=== PATIENT | male | born 1945 | race Caucasian/White ===

== ENCOUNTER 2018-05-28 16:43 | Inpatient (IN) | payer MEDICARE, BC ==
[~2018-05-28] VITALS: Ht 180.3 cm; Wt 85.5 kg
[2018-05-28 20:20] VITALS: BP 111/65; PULSE 62; RESP 18
[2018-05-28 20:47] VITALS: Ht 180.3 cm; Wt 85.5 kg
[2018-05-28] MEDS ORDERED: DEXTROSE 50% 50 ML SYRINGE IV PRN ×2 (21:00)
[2018-05-28] MEDS ORDERED: GLUCOSE GEL 15 GRAM TUBE BUCCAL PRN (21:00)
[2018-05-28] MEDS: MAGNESIUM OXIDE 400 MG TAB PO SCH (21:00)
[2018-05-28] MEDS ORDERED: DOCUSATE SODIUM 100 MG CAP PO PRN (21:00)
[2018-05-28] MEDS ORDERED: GLUCOSE GEL 15 GRAM TUBE PO PRN ×2 (21:00)
[2018-05-28] MEDS ORDERED: ONDANSETRON 4 MG TAB PO PRN (21:00)
[2018-05-28] MEDS: ATORVASTATIN 10 MG TAB PO SCH (21:00)
[2018-05-28] MEDS: ACCU-CHEK XX SCH (21:00)
[2018-05-28] MEDS ORDERED: GLUCAGON 1 MG INJ IM PRN (21:00)
[2018-05-28] MEDS: POLYETHYLENE GLYCOL 17 GM PACKET PO SCH (21:00)
[2018-05-28] MEDS ORDERED: METHOCARBAMOL 750 MG TAB PO PRN (21:00)
[2018-05-28] MEDS: TAMSULOSIN (SR) 0.4 MG CAP PO SCH (21:00)
[2018-05-28] MEDS: GUAIFENESIN LA 600 MG TABSR PO SCH (21:00)
[2018-05-28] MEDS: INSULIN ASPART [NOVOLOG] 3 ML PEN SC SCH (22:00)
[2018-05-28] MEDS ORDERED: PENDING SANTYL ORDER FOR WOUND CARE XX PRN (22:00)
[2018-05-28] MEDS ORDERED: BISACODYL 10 MG SUPP PR PRN (22:30)
[2018-05-29 02:34] VITALS: BP 119/69; PULSE 68; RESP 18
[2018-05-29] MEDS: LANSOPRAZOLE 30 MG CAP PO SCH (06:05)
[2018-05-29] MEDS: ACETAMINOPHEN 325 MG TAB PO SCH ×4 (06:05→18:20)
[2018-05-29] MEDS: LEVOTHYROXINE 125 MCG TAB PO SCH (06:05)
[2018-05-29 07:00] VITALS: BP 96/57; PULSE 75; RESP 16
[2018-05-29] MEDS: INSULIN ASPART [NOVOLOG] 3 ML PEN SC SCH ×4 (07:35→21:00)
[2018-05-29] MEDS: metFORMIN 500 MG TAB PO SCH ×2 (08:16→19:32)
[2018-05-29] MEDS: ACCU-CHEK XX SCH ×4 (08:17→21:24)
[2018-05-29] MEDS ORDERED: COLCHICINE 0.6 MG TAB PO SCH (09:00)
[2018-05-29] MEDS: POLYETHYLENE GLYCOL 17 GM PACKET PO SCH ×2 (09:00→20:57)
[2018-05-29] MEDS: DOCUSATE SODIUM 100 MG CAP PO SCH ×2 (09:00→20:57)
[2018-05-29] MEDS: traMADol 50 MG TAB PO PRN (09:50)
[2018-05-29] MEDS: GUAIFENESIN LA 600 MG TABSR PO SCH ×2 (09:53→20:49)
[2018-05-29] MEDS: FOLIC ACID 1 MG TAB PO SCH (09:53)
[2018-05-29] MEDS: LOSARTAN 50 MG TAB PO SCH (09:57)
[2018-05-29 14:00] VITALS: BP 148/73; PULSE 76; RESP 18
--- NOTE | 2018-05-29 15:08 | HP ---
DATE OF ADMISSION: 05/28/2018 HISTORY OF PRESENT ILLNESS: This is a 72-year-old male with a past medical history of diabetes, hypo thyroidism, history of hypertension, history of chronic kidney disease stage III, who presented to [facility] with cervical stenosis and spondylitis. The patient was admitted and on 06/2018 the patient underwent posterior cervical C3-C6 laminectomy with instrumented fusion. The gary small underwent procedure after having prolonged symptoms of weakness and neuropathy of his left hand. The patient postoperatively his course was complicated with pain. The patient also had a postopera tive leukocytosis and fever. The patient was treated with antibiotics, but found no evidence of acti ve infection. The patient's kidney function was noted to be stable during the hospital course. The p atient, however, had a significant decline in his premorbid state. As a result, he was transferred to [facility] acute rehab for continued care. Upon my evaluation of the patient at this time is currently lethargic. The patient has noted difficu lty ambulating. The patient denies any chest pain, nausea, vomiting, no shortness of breath. PAST MEDICAL HISTORY: History of CKD, history of dyslipidemia, hypothyroidism, hypertension, diabete s, BPH. PAST SURGICAL HISTORY: The patient is status post rotator cuff surgery, status post right knee arthr oplasty, right thumb transfer from big toe, a vasectomy. ALLERGIES: PLEASE SEE LIST. FAMILY HISTORY: No family history. SOCIAL HISTORY: Does not drink, smoke or do drugs. MEDICATIONS: The patient's medications have been reviewed. REVIEW OF SYSTEMS: A 14-point review of systems conducted. Pertinent positives stated in HPI, other cervantes negative. PHYSICAL EXAMINATION: VITAL SIGNS: Blood pressure 96/56, respirations 16, pulse 75, temperature 99.0. HEENT: Head is normocephalic. The patient has a neck brace. HEART: Regular rate. LUNGS: Show diminished breath sounds at the base. ABDOMEN: Soft, nontender to palpation without rebound or guarding. EXTREMITIES: Negative for clubbing, cyanosis, no edema. DERMATOLOGIC: No rashes. MUSCULOSKELETAL: No joint effusions. NEUROLOGIC: Limited exam due to lack of patient cooperation. No obvious focal deficits. The patien t does have an abnormal gait. LABORATORY DATA: Shows a sodium 135, potassium 4.4, chloride 98, BUN 25, creatine 1.48. Hemoglobin A1c 6.7. White count 5.7, hemoglobin 13.5, platelet count is 155. Urinalysis was reviewed. ASSESSMENT AND PLAN: This is a 72-year-old male who presents with: 1. Status post posterior cervical C3 to C6 laminectomy with instrumented fusion. The patient has a noted neck brace. Plan is to continue physical therapy, occupational therapy, pain control, monitor closely. Consider neurologic evaluation. 2. Hypertension. The patient is currently hypotensive. Will hold blood pressure medications and mo nitor closely. Consider fluid challenge. 3. Diabetes. Continue current insulin regimen. 4. Benign prostatic hypertrophy. Continue Flomax. 5. Dyslipidemia. Continue statin therapy. 6. Hypothyroidism. Continue Synthroid. 7. Constipation. Continue current bowel regimen. 8. SIRS, The patient has completed an antibiotic course. 9. Gastrointestinal and DVT prophylaxis. Continue sequential leg squeezers and PPI. 10. Dirty urinalysis, pyuria. We will follow up urine culture. 11. Chronic kidney disease, stage III. The patient's baseline creatinine is between 1.5 and 1.75 mg /dL. The patient's renal function is currently at baseline. Continue current treatment plan and jose miguel ally dose all medication. Please note, I spent an additional 30 minutes in byda-wa-vmvw time with the patient's discussing ____ _status. The patient is FULL CODE. Dictated By: TESSA SHRESTHA DO NR/NTS Conf#: [id number] DID#: [id number] CC: VISHNU LANDERS DO; MARIANA IRVING MD;*End*
--- NOTE | 2018-05-29 15:40 | CONS ---
DATE OF ADMISSION: 05/28/2018 DATE OF CONSULTATION: 05/29/2018 REHABILITATION POST ADMISSION PHYSICIAN EVALUATION REHABILITATION IMPAIRMENT CATEGORY: Nontraumatic cervical spinal cord injury with cervical spinal st enosis and spondylitis, status post posterior C3 through C6 laminectomy and fusion. ACTIVE COMORBIDITIES: 1. Acute pain syndrome. 2. Diabetes mellitus type 2. 3. Hypertension. 4. Renal insufficiency. 5. Hypothyroidism. 6. Benign prostatic hypertrophy. 7. History of right knee osteoarthritis with arthroscopy. 8. History of right thumb transfer from big toe. 9. Impairments in self-care and mobility. HISTORY OF PRESENT ILLNESS: The patient is a 72-year-old left-handed gentleman with a history of kimberly betes mellitus, hypothyroidism, hypertension, osteoarthritis, who had been noting severe increasing r adiating pain despite conservative measures. Workup was consistent with cervical spinal stenosis and spondylitis and patient underwent a posterior cervical C3 through C6 laminectomy with instrumented f usion. His postoperative course was notable for a leukocytosis and postop fever, which has improved. The patient was noted to have a left lower lobe pneumonia. The patient's hospital course also was notable for pain, and significant impairments in self-care and mobility as compared to baseline. The patient has been cleared to transfer to the rehabilitation unit for comprehensive interdisciplinary rehab care. FUNCTIONAL HISTORY: Prior to recent events, he was independent in self-care tasks and mobility. Cur rently, patient requires moderate to maximal assist for self-care and mobility tasks. I have reviewed the preadmission screen and the patient's current functional status is consistent wit h the preadmission screen. FAMILY AND SOCIAL HISTORY: The patient reports living at home with family in a 2 story home. He majano s hope to return there upon discharge. PAST MEDICAL HISTORY: 1. Diabetes mellitus type 2. 2. Hypothyroidism. 3. Chronic rotator cuff disorder. 4. Hypertension. 5. Renal insufficiency. 6. Osteoarthritis with right knee arthroscopy. 7. History of right thumb transfer from big toe. 8. History of BPH. CURRENT MEDICATIONS: 1. Losartan 50 mg p.o. q.a.m. 2. Levothyroxine 125 mcg p.o. q.a.m. 3. Atorvastatin 10 mg p.o. q.a.m. 4. Folic acid 0.5 mg p.o. daily. 5. Metformin 1000 mg p.o. b.i.d. 6. Omeprazole 40 mg p.o. daily. 7. Flomax 0.4 mg p.o. daily. 8. Vitamin B12. 9. Methocarbamol. 10. Flexeril. 11. Ultram. ALLERGIES: NONSTEROIDAL ANTI-INFLAMMATORY AND PROTONIX. PHYSICAL EXAMINATION: VITAL SIGNS: The patient is currently afebrile with stable vital signs. HEENT: Extraocular motions appear intact. Oropharynx is clear. Cervical collar in place. LUNGS: Clear anteriorly. CARDIAC: S1, S2. ABDOMEN: Soft, nontender, positive bowel sounds. NEUROLOGIC: He is awake and alert. He is oriented x3. He can follow simple 1-step commands. His d istal child support officer is 4+ in bilateral upper extremities. He has decreased forward flexion and abduction. Bi lateral upper extremities, left worse than right. He has antigravity strength in bilateral lower ext remities. Dorsiflexion, plantar flexion intact. PLAN: The patient has been admitted for comprehensive interdisciplinary acute rehab and is anticipat ed to tolerate 3 hours of daily therapy in divided doses for at least 5/7 days a week. The treatment plan will include: 1. Physical therapy to focus on bed mobility, transfers, and household ambulation with the goal of h aving the patient reach a standby assist level. 2. Occupational therapy to focus on hygiene, grooming, dressing, bathing, and toileting activities w ith goal of having patient reach standby assist level. 3. Rehabilitation nursing for carryover of therapeutic interventions, the goal of continent of bowel and bladder, the goal of pain adequately managed on oral medications and patient and family educatio n with regard to the aforementioned issues. REHABILITATION BARRIER: Pain. INTERVENTION FOR BARRIER: Interdisciplinary approach. We will also start Neurontin given the neurop athic component to his pain. I acknowledge that I performed a full physical examination on this patient within 24 hours of admissi on to the rehabilitation unit. I believe the patient is a good candidate for comprehensive interdisc iplinary rehab care and is anticipated to make reasonable goals in a reasonable period of time as out lined above. Dictated By: MARIANA DESHPANDE/NTS Conf#: [id number] DID#: [id number] CC: VISHNU LANDERS DO;*EndCC*
[2018-05-29 20:15] VITALS: BP 95/57; PULSE 67; RESP 18
[2018-05-29] MEDS: ATORVASTATIN 10 MG TAB PO SCH (20:48)
[2018-05-29] MEDS: TAMSULOSIN (SR) 0.4 MG CAP PO SCH (20:48)
[2018-05-29] MEDS: GABAPENTIN 100 MG CAP PO SCH (20:49)
[2018-05-29] MEDS: MAGNESIUM OXIDE 400 MG TAB PO SCH (20:49)
[2018-05-29] MEDS: SENNA TAB PO SCH (20:58)
[2018-05-30] MEDS: traMADol 50 MG TAB PO PRN ×3 (03:13→20:24)
[2018-05-30 03:41] VITALS: BP 98/55; PULSE 64; RESP 18
[2018-05-30] MEDS: LANSOPRAZOLE 30 MG CAP PO SCH (06:09)
[2018-05-30] MEDS: LEVOTHYROXINE 125 MCG TAB PO SCH (06:09)
[2018-05-30] MEDS: ACETAMINOPHEN 325 MG TAB PO SCH ×4 (06:12→17:55)
[2018-05-30 07:00] VITALS: BP 94/57; PULSE 67; RESP 18
[2018-05-30] MEDS: INSULIN ASPART [NOVOLOG] 3 ML PEN SC SCH ×4 (07:35→21:00)
[2018-05-30] MEDS: ACCU-CHEK XX SCH ×4 (08:03→21:00)
[2018-05-30] MEDS: metFORMIN 500 MG TAB PO SCH ×2 (08:41→17:48)
[2018-05-30] MEDS: DOCUSATE SODIUM 100 MG CAP PO SCH ×2 (08:41→21:00)
[2018-05-30] MEDS: FOLIC ACID 1 MG TAB PO SCH (08:43)
[2018-05-30] MEDS: LOSARTAN 50 MG TAB PO SCH (08:43)
[2018-05-30] MEDS: POLYETHYLENE GLYCOL 17 GM PACKET PO SCH ×3 (08:44→21:00)
[2018-05-30] MEDS: GUAIFENESIN LA 600 MG TABSR PO SCH ×2 (08:44→20:23)
[2018-05-30] MEDS: GABAPENTIN 100 MG CAP PO SCH ×2 (08:44→20:24)
--- NOTE | 2018-05-30 09:31 | PN ---
DATE: 05/30/2018 SUBJECTIVE: The patient had a difficult night. The patient is complaining about neck pain and gener al discomfort. The patient is also complaining about cough. No other events noted. OBJECTIVE: VITAL SIGNS: Blood pressure is 98/55, respiration 18, pulse 64, temperature is 98.9. HEENT: Head is normocephalic. NECK: Shows a brace. HEART: Regular rate. LUNGS: Show diminished breath sounds at the base. ABDOMEN: Soft, nontender to palpation without rebound or guarding. EXTREMITIES: Negative for clubbing, cyanosis, no edema. DERMATOLOGIC: No rashes. MUSCULOSKELETAL: No joint effusion. NEUROLOGIC: No change in exam. MEDICATIONS: The patient's medications have been reviewed. LABORATORY DATA: Shows white count 6.5, hemoglobin 12.5, platelet count 154. Sodium 134, BUN 26, cr eatinine 1.46. Microbiology was reviewed. ASSESSMENT AND PLAN: 1. Status post posterior cervical C3-C6 laminectomy with instrumented fusion. The patient has a nec k brace noted. Continue physical therapy and occupational therapy, pain control. 2. Cough. Etiology may be postoperative. We will continue to monitor. Consider chest x-ray. 3. Hypertension. The patient is currently hypotensive. Will continue to hold blood pressure medica tions, monitor closely. 4. Diabetes. Continue current diabetic regimen. 5. Benign prostatic hypertrophy. Continue Flomax. 6. Dyslipidemia. Continue statin therapy. 7. Hypothyroidism. Continue Synthroid. 8. Constipation. Continue bowel regimen. 9. SIRS, the patient has completed an antibiotic course. 10. Pyuria. Will continue to monitor. Follow up urine culture. 11. Chronic kidney disease, stage III. Patient's renal function is currently at baseline. Continue current treatment plan, supportive care, renally dose all meds. 12. Gastrointestinal and deep vein thrombosis prophylaxis. Dictated By: TESSA SHRESTHA DO NR/NTS Conf#: [id number] DID#: [id number] CC: VISHNU LANDERS DO; MARIANA IRVING MD;*EndCC*
[2018-05-30] MEDS: CYCLOBENZAPRINE 10 MG TAB PO PRN ×2 (13:47→20:24)
[2018-05-30 14:00] VITALS: BP 96/61; PULSE 64; RESP 18
[2018-05-30] MEDS: TAMSULOSIN (SR) 0.4 MG CAP PO SCH (20:23)
[2018-05-30] MEDS: MAGNESIUM OXIDE 400 MG TAB PO SCH (20:23)
[2018-05-30] MEDS: ATORVASTATIN 10 MG TAB PO SCH (20:24)
[2018-05-30 20:42] VITALS: BP 95/60; PULSE 64; RESP 18
[2018-05-30] MEDS: SENNA TAB PO SCH (21:00)
[2018-05-31 02:00] VITALS: BP 108/65; PULSE 62; RESP 18
[2018-05-31] MEDS: LANSOPRAZOLE 30 MG CAP PO SCH (06:14)
[2018-05-31] MEDS: ACETAMINOPHEN 325 MG TAB PO SCH ×4 (06:14→18:00)
[2018-05-31 07:00] VITALS: BP 104/65; PULSE 64; RESP 18
[2018-05-31] MEDS: ACCU-CHEK XX SCH ×4 (07:05→21:51)
[2018-05-31] MEDS: INSULIN ASPART [NOVOLOG] 3 ML PEN SC SCH ×4 (07:35→21:00)
[2018-05-31] MEDS: metFORMIN 500 MG TAB PO SCH ×3 (08:16→18:01)
[2018-05-31] MEDS: POLYETHYLENE GLYCOL 17 GM PACKET PO SCH ×2 (09:00→21:00)
[2018-05-31] MEDS: GABAPENTIN 100 MG CAP PO SCH ×2 (09:29→20:48)
[2018-05-31] MEDS: DOCUSATE SODIUM 100 MG CAP PO SCH ×2 (09:29→21:00)
[2018-05-31] MEDS: GUAIFENESIN LA 600 MG TABSR PO SCH ×2 (09:29→21:27)
[2018-05-31] MEDS: CYCLOBENZAPRINE 10 MG TAB PO PRN ×2 (09:30→13:03)
[2018-05-31] MEDS: LOSARTAN 50 MG TAB PO SCH (09:30)
[2018-05-31] MEDS: FOLIC ACID 1 MG TAB PO SCH (09:30)
[2018-05-31] MEDS: traMADol 50 MG TAB PO PRN (09:30)
--- NOTE | 2018-05-31 09:48 | PN ---
DATE: 05/31/2018 SUBJECTIVE: The patient is stable overnight. No fevers, chills, nausea, vomiting. OBJECTIVE: VITAL SIGNS: Blood pressure is 108/65, respirations 18, pulse 62, temperature 97.9. HEENT: Head is normocephalic. NECK: Shows brace. HEART: Regular rate. LUNGS: Show diminished breath sounds at the base. ABDOMEN: Soft, nontender to palpation without rebound or guarding. EXTREMITIES: Negative for clubbing, cyanosis, no edema. DERMATOLOGIC: No rashes. MUSCULOSKELETAL: No joint effusion. NEUROLOGIC: No change in exam. MEDICATIONS: Reviewed. LABORATORY DATA: Reviewed. ASSESSMENT AND PLAN: 1. Status post posterior cervical C3-C6 laminectomy with instrument fusion. The patient is currentl y in neck brace. Continue physical therapy and occupational therapy. 2. Cough, improving. Continue to monitor. 3. Hypertension. Continue current blood pressure regimen with parameters to avoid hypotensive episo helio. 4. Diabetes. Continue current diabetic regimen. 5. Benign prostatic hypertrophy. Continue Flomax. 6. Dyslipidemia. Continue statin therapy. 7. Hypothyroidism. Continue Synthroid. 8. Constipation. Continue current bowel regimen. 9. Systemic inflammatory response syndrome. The patient is completing antibiotic course. 10. Pyuria. Continue to monitor. Follow up urine culture. 11. Chronic kidney disease stage III. Renal function is stable. Currently at baseline. Continue t o monitor. 12. Mild hypernatremia, possibly due to syndrome of inappropriate antidiuretic hormone. Monitor guillermo sely. 13. Gastrointestinal and deep vein thrombosis prophylaxis. Dictated By: TESSA SHRESTHA DO NR/NTS Conf#: [id number] DID#: [id number] CC: MARIANA IRVING MD; VISHNU LANDERS DO;*EndCC*
[2018-05-31] MEDS: LEVOTHYROXINE 125 MCG TAB PO SCH (12:00)
--- NOTE | 2018-05-31 13:58 | PN ---
Date/Time of Note Date/Time of Note DATE: 05/31/18 TIME: 13:58 Objective Vital Signs Date Temp Pulse Resp B/P (MAP) Pulse Ox O2 O2 Flow FiO2 Time Delivery Rate 05/31/18 98.1 64 18 104/65 92 Room Air 07:00 (78) Intake and Output 05/30/18 05/30/18 05/31/18 1515:00 23:00 07:00 IntakeIntake Total 1200 ml 300 ml OutputOutput Total 600 ml 200 ml BalanceBalance 600 ml 100 ml Exam INTERDISCIPLINARY TEAM CONFERENCE Physical Exam: Pulm- CTA Abd-soft BOWEL- Cont BLADDER-Cont SKIN- intact OT- DRESSING- max/dep BATHING-max/dep TOILETING-dep PT- BED MOBILITY-max TRANSFERS-max AMBULATION-max 2 steps A/P- Interdisciplinary team conference held today. Please see interdisciplinary sheet. Working toward d.c. on 06/17 with post discharge follow up of physical therapy, occupational therapy. Results/Medications Result Diagram: 05/30/1862605/30/18626 Results 24 hrs Laboratory Tests Test 05/30/18 17:48 05/30/18 20:27 05/31/18 07:55 05/31/18 12:00 Bedside Glucose 106 127 99 101 Medications Current Medications Acetaminophen (Tylenol Tab) 650 mg Q6H PO Last administered on 05/31/18at 12:22; Admin Dose 650 MG; Start 05/29/18 at 00:00; Stop 06/01/18 at 23:59 Tramadol HCl (Ultram) 50 mg Q4 PRN PO PAIN Last administered on 05/31/18at 09:3 0; Admin Dose 50 MG; Start 05/28/18 at 21:00 Tamsulosin HCl (Flomax) 0.4 mg HS PO Last administered on 05/30/18at 20:23; Admin Dose 0.4 MG; Start 05/28/18 at 21:00 Polyethylene Glycol (Miralax) 17 gm BID PO ; Start 05/28/18 at 21:00 Insulin Aspart (Novolog Insulin Pen) NOVOLOG *MILD* ALGORITHM WITH MEALS BEDTIME SC ; Start 05/28/18 at 22:00 Docusate Sodium (Colace) 100 mg BID PRN PO CONSTIPATION; Start 05/28/18 at 21:00 Guaifenesin (Mucinex) 600 mg BID PO Last administered on 05/31/18 09:29; Admin Dose 600 MG; Start 05/28/18 at 21:00 Miscellaneous Information 1 ea NOTE XX ; Start 05/28/18 at 21:00 Glucose (Glutose) 15 gm Q15M PRN PO DECREASED GLUCOSE; Start 05/28/18 at 21:00 Glucose (Glutose) 22.5 gm Q15M PRN PO DECREASED GLUCOSE; Start 05/28/18 at 21:00 Dextrose (D50w Syringe) 25 ml Q15M PRN IV DECREASED GLUCOSE; Start 05/28/18 at 21:00 Dextrose (D50w Syringe) 50 ml Q15M PRN IV DECREASED GLUCOSE; Start 05/28/18 at 21:00 Glucagon (Glucagen) 1 mg Q15M PRN IM DECREASED GLUCOSE; Start 05/28/18 at 21:00 Glucose (Glutose) 15 gm Q15M PRN BUCCAL DECREASED GLUCOSE; Start 05/28/18 at 21:00 Albuterol/ Ipratropium (Duoneb) 3 ml Q6H RESP THERAPY PRN HHN SHORTNESS OF BREATH; Start 05/28/18 at 21:00 Ondansetron HCl (Zofran Tab) 4 mg Q4 PRN PO NAUSEA AND/OR VOMITING Last administered on 05/31/18 09:30; Admin Dose 4 MG; Start 05/28/18 at 21:00 Atorvastatin Calcium (Lipitor) 10 mg HS PO Last administered on 05/30/18 20:24; Admin Dose 10 MG; Start 05/28/18 at 21:00 Cyclobenzaprine HCl (Flexeril) 5 mg TID PRN PO MUSCLE SPASMS Last administered on 05/31/18 13:03; Admin Dose 5 MG; Start 05/28/18 at 21:00 Folic Acid (Folic Acid) 1 mg DAILY PO Last administered on 05/31/18 09:30; Admin Dose 1 MG; Start 05/29/18 at 09:00 Levothyroxine Sodium (Synthroid) 125 mcg DAILY@06 PO Last administered on 05/31/18 12:00; Admin Dose 125 MCG; Start 05/29/18 at 06:00 Losartan Potassium (Cozaar) 50 mg DAILY PO Last administered on 05/31/18 09:30; Admin Dose 50 MG; Start 05/29/18 at 09:00 Magnesium Oxide (Mag-Ox 400) 400 mg HS PO Last administered on 05/30/18at 20:23; Admin Dose 400 MG; Start 05/28/18 at 21:00 Metformin HCl (Glucophage) 1,000 mg BID WITH MEALS PO Last administered on 05/31/18 08:16; Admin Dose 1,000 MG; Start 05/29/18 at 07:35 Diagnostic Test (Pha) (Accu-Chek) 1 ea AC MEALS AND BEDTIME XX Last administered on 05/31/18at 12:03; Admin Dose 1 EA; Start 05/28/18 at 21:00 Miscellaneous Information [facility] This patient pena... PRN PRN XX WOUND CARE; Start 05/28/18 at 22:00 Cyanocobalamin (Vitamin B12 Inj) 1,000 mcg Q30D IM ; Start 06/14/18 at 22:30 Lansoprazole (Prevacid) 30 mg DAILY@06 PO Last administered on 05/31/18at 06:14; Admin Dose 30 MG; Start 05/29/18 at 06:00 Docusate Sodium (Colace) 100 mg BID PO Last administered on 05/31/18at 09:29; Admin Dose 100 MG; Start 05/29/18 at 09:00 Senna (Senokot) 1 tab HS PO ; Start 05/29/18 at 21:00 Lactulose (Enulose) 20 gm DAILY PRN PO CONSTIPATION; Start 05/28/18 at 22:30 Bisacodyl (Dulcolax Supp) 10 mg DAILY PRN OK CONSTIPATION; Start 05/28/18 at 22:30 Acetaminophen (Tylenol Tab) 650 mg Q4H PRN PO MILD PAIN 1-3; Start 05/28/18 at 22:30 Gabapentin (Neurontin) 100 mg BID PO Last administered on 05/31/18at 09:29; Admin Dose 100 MG; Start 05/29/18 at 21:00 Acetaminophen/ Hydrocodone Bitart ([place] (10/325)) 1 tab Q4H PRN PO MODERATE PAIN LEVEL 4-6; Start 05/31/18 at 13:30 Baclofen (Lioresal) 10 mg TID PO ; Start 05/31/18 at 21:00 MARIANA IRVING MD May 31, 2018 13:58
[2018-05-31 14:00] VITALS: BP 121/73; PULSE 67; RESP 18
[2018-05-31] MEDS: HYDROCODONE/APAP (10/325) TAB PO PRN (15:53)
[2018-05-31 20:00] VITALS: BP 94/58; PULSE 69; RESP 18
[2018-05-31] MEDS: TAMSULOSIN (SR) 0.4 MG CAP PO SCH (20:47)
[2018-05-31] MEDS: ATORVASTATIN 10 MG TAB PO SCH (20:48)
[2018-05-31] MEDS: MAGNESIUM OXIDE 400 MG TAB PO SCH (20:48)
[2018-05-31] MEDS: BACLOFEN 10 MG TAB PO SCH (20:48)
[2018-05-31] MEDS: SENNA TAB PO SCH (21:00)
[2018-06-01 02:00] VITALS: BP 108/65; PULSE 61; RESP 18
[2018-06-01] MEDS: LANSOPRAZOLE 30 MG CAP PO SCH (06:11)
[2018-06-01] MEDS: LEVOTHYROXINE 125 MCG TAB PO SCH (06:12)
[2018-06-01] MEDS: ACETAMINOPHEN 325 MG TAB PO SCH ×4 (06:12→17:47)
[2018-06-01] MEDS: traMADol 50 MG TAB PO PRN ×2 (06:13→10:36)
[2018-06-01] MEDS: ACCU-CHEK XX SCH ×4 (07:05→21:00)
[2018-06-01 07:30] VITALS: BP 99/59; PULSE 62; RESP 20
[2018-06-01] MEDS: INSULIN ASPART [NOVOLOG] 3 ML PEN SC SCH ×4 (07:35→21:00)
--- NOTE | 2018-06-01 08:44 | PN ---
DATE: 06/01/2018 SUBJECTIVE: The patient is stable, no events overnight. No fevers, chills, nausea, or vomiting. Th e patient has nonproductive cough. OBJECTIVE: VITAL SIGNS: Blood pressure is 108/65, respirations 18, pulse 61, temperature 97.8. HEENT: Head is normocephalic. NECK: Supple. The patient has noted brace. HEART: Regular rate. LUNGS: Show diminished breath sounds at the base. ABDOMEN: Soft, nontender to palpation without rebound or guarding. EXTREMITIES: Negative for clubbing, cyanosis, no edema. DERMATOLOGIC: No rashes. MUSCULOSKELETAL: No joint effusion. NEUROLOGIC: No change in exam. ASSESSMENT AND PLAN: 1. Status post posterior cervical C3-C6 laminectomy with instrumented fusion. The patient is curren tly in neck brace, continue physical therapy and occupational therapy. 2. Cough. We will check a chest x-ray. Continue incentive spirometry. 3. Hypertension. The patient now is noted to be hypotensive. Continue to hold blood pressure medic ations and monitor. 4. Diabetes. Continue current diuretic regimen. 5. Benign prostatic hypertrophy. Continue Flomax. 6. Dyslipidemia. Continue statin therapy. 7. Hypothyroidism. Continue Synthroid. 8. Constipation. Continue current bowel regimen. 9. Systemic inflammatory response syndrome, the patient is completing antibiotic course. 10. Pyuria. Follow up urine culture. 11. Chronic kidney disease, stage III. Renal function is stable. Currently at baseline. Continue to monitor. 12. Mild hypernatremia, possibly due to an syndrome of inappropriate antidiuretic hormone. Continue to monitor. Follow up renal panel. 13. Gastrointestinal and deep vein thrombosis prophylaxis. Dictated By: TESSA SHRESTHA DO NR/NTS Conf#: [id number] DID#: [id number] CC: MARIANA IRVING MD; VISHNU LANDERS DO;*EndCC*
[2018-06-01] MEDS: ALBUTEROL/IPRATROPIUM (NEB) 3 ML AMP HHN PRN (08:54)
[2018-06-01] MEDS: DOCUSATE SODIUM 100 MG CAP PO SCH ×3 (09:00→21:08)
[2018-06-01] MEDS: LOSARTAN 50 MG TAB PO SCH (09:00)
[2018-06-01] MEDS: GUAIFENESIN LA 600 MG TABSR PO SCH ×2 (10:36→21:08)
[2018-06-01] MEDS: FOLIC ACID 1 MG TAB PO SCH (10:37)
[2018-06-01] MEDS: metFORMIN 500 MG TAB PO SCH ×2 (10:37→17:49)
[2018-06-01] MEDS: BACLOFEN 10 MG TAB PO SCH ×3 (10:38→21:08)
[2018-06-01] MEDS: POLYETHYLENE GLYCOL 17 GM PACKET PO SCH ×2 (10:38→10:52)
[2018-06-01] MEDS: GABAPENTIN 100 MG CAP PO SCH ×2 (10:39→21:08)
--- NOTE | 2018-06-01 12:51 | PN ---
Date/Time of Note Date/Time of Note DATE: 06/01/18 TIME: 12:51 Subjective Pain improved on medications Objective Vital Signs Date Temp Pulse Resp B/P (MAP) Pulse Ox O2 O2 Flow FiO2 Time Delivery Rate 06/01/18 4.0 09:22 06/01/18 65 19 93 Nasal 08:55 Cannula 06/01/18 97.6 99/59 (72) 07:30 Intake and Output 05/31/18 05/31/18 06/01/18 1515:00 23:00 07:00 IntakeIntake Total 1200 ml 240 ml OutputOutput Total 800 ml BalanceBalance 400 ml 240 ml Exam pulm-cta abd-soft max Results/Medications Result Diagram: 06/01/18 0735 06/01/18 0735 Results 24 hrs Laboratory Tests Test 05/31/18 17:56 05/31/18 20:45 06/01/18 07:35 06/01/18 09:01 Bedside Glucose 114 115 112 White Blood Count 7.2 Red Blood Count 3.85 L Hemoglobin 12.7 L Hematocrit 37.5 L Mean Corpuscular 97.4 Volume Mean Corpuscular 33.0 Hemoglobin Mean Corpuscular 33.9 Hemoglobin Concent Red Cell 13.2 Distribution Width Platelet Count 192 # Mean Platelet Volume 11.1 H Immature 1.800 H Granulocytes % Neutrophils % 70.2 Lymphocytes % 16.2 Monocytes % 10.0 Eosinophils % 1.1 Basophils % 0.7 Nucleated Red Blood 0.0 Cells % Immature 0.130 H Granulocytes # Neutrophils # 5.1 Lymphocytes # 1.2 Monocytes # 0.7 Eosinophils # 0.1 Basophils # 0.1 Nucleated Red Blood 0.0 Cells # Sodium Level 134 L Potassium Level 4.0 Chloride Level 97 Carbon Dioxide Level 27 Anion Gap 10 Blood Urea Nitrogen 24 H Creatinine 1.17 Est Glomerular Filtrat Rate mL/min Glucose Level 102 Calcium Level 8.4 Phosphorus Level 3.8 Magnesium Level 2.0 Test 06/01/18 12:30 Bedside Glucose 114 Medications Current Medications Acetaminophen (Tylenol Tab) 650 mg Q6H PO Last administered on 06/01/18at 12:34; Admin Dose 650 MG; Start 05/29/18 at 00:00; Stop 06/01/18 at 23:59 Tramadol HCl (Ultram) 50 mg Q4 PRN PO PAIN Last administered on 06/01/18 10:36; Admin Dose 50 MG; Start 05/28/18 at 21:00 Tamsulosin HCl (Flomax) 0.4 mg HS PO Last administered on 05/31/18at 20:47; Admin Dose 0.4 MG; Start 05/28/18 at 21:00 Polyethylene Glycol (Miralax) 17 gm BID PO ; Start 05/28/18 at 21:00 Insulin Aspart (Novolog Insulin Pen) NOVOLOG *MILD* ALGORITHM WITH MEALS BEDTIME SC ; Start 05/28/18 at 22:00 Docusate Sodium (Colace) 100 mg BID PRN PO CONSTIPATION; Start 05/28/18 at 21:00 Guaifenesin (Mucinex) 600 mg BID PO Last administered on 06/01/18 10:36; Admin Dose 600 MG; Start 05/28/18 at 21:00 Miscellaneous Information 1 ea NOTE XX ; Start 05/28/18 at 21:00 Glucose (Glutose) 15 gm Q15M PRN PO DECREASED GLUCOSE; Start 05/28/18 at 21:00 Glucose (Glutose) 22.5 gm Q15M PRN PO DECREASED GLUCOSE; Start 05/28/18 at 21:00 Dextrose (D50w Syringe) 25 ml Q15M PRN IV DECREASED GLUCOSE; Start 05/28/18 at 21:00 Dextrose (D50w Syringe) 50 ml Q15M PRN IV DECREASED GLUCOSE; Start 05/28/18 at 21:00 Glucagon (Glucagen) 1 mg Q15M PRN IM DECREASED GLUCOSE; Start 05/28/18 at 21:00 Glucose (Glutose) 15 gm Q15M PRN BUCCAL DECREASED GLUCOSE; Start 05/28/18 at 21:00 Albuterol/ Ipratropium (Duoneb) 3 ml Q6H RESP THERAPY PRN HHN SHORTNESS OF BREATH Last administered on 06/01/18 08:54; Admin Dose 3 ML; Start 05/28/18 at 21:00 Ondansetron HCl (Zofran Tab) 4 mg Q4 PRN PO NAUSEA AND/OR VOMITING Last administered on 05/31/18 09:30; Admin Dose 4 MG; Start 05/28/18 at 21:00 Atorvastatin Calcium (Lipitor) 10 mg HS PO Last administered on 05/31/18at 20:48; Admin Dose 10 MG; Start 05/28/18 at 21:00 Cyclobenzaprine HCl (Flexeril) 5 mg TID PRN PO MUSCLE SPASMS Last administered on 05/31/18 13:03; Admin Dose 5 MG; Start 05/28/18 at 21:00 Folic Acid (Folic Acid) 1 mg DAILY PO Last administered on 06/01/18 10:37; Admin Dose 1 MG; Start 05/29/18 at 09:00 Levothyroxine Sodium (Synthroid) 125 mcg DAILY@06 PO Last administered on 06/01/18 06:12; Admin Dose 125 MCG; Start 05/29/18 at 06:00 Losartan Potassium (Cozaar) 50 mg DAILY PO Last administered on 05/31/18 09:30; Admin Dose 50 MG; Start 05/29/18 at 09:00 Magnesium Oxide (Mag-Ox 400) 400 mg HS PO Last administered on 05/31/18 20:48; Admin Dose 400 MG; Start 05/28/18 at 21:00 Metformin HCl (Glucophage) 1,000 mg BID WITH MEALS PO Last administered on 06/01/18 10:37; Admin Dose 1,000 MG; Start 05/29/18 at 07:35 Diagnostic Test (Pha) (Accu-Chek) 1 ea AC MEALS AND BEDTIME XX Last admin istered on 06/01/18 11:30; Admin Dose 1 EA; Start 05/28/18 at 21:00 Miscellaneous Information (Pending [facility] Order For Wound Care) This patient pena... PRN PRN XX WOUND CARE; Start 05/28/18 at 22:00 Cyanocobalamin (Vitamin B12 Inj) 1,000 mcg Q30D IM ; Start 06/14/18 at 22:30 Lansoprazole (Prevacid) 30 mg DAILY@06 PO Last administered on 06/01/18 06:11; Admin Dose 30 MG; Start 05/29/18 at 06:00 Docusate Sodium (Colace) 100 mg BID PO Last administered on 05/31/18 09:29; Admin Dose 100 MG; Start 05/29/18 at 09:00 Senna (Senokot) 1 tab HS PO ; Start 05/29/18 at 21:00 Lactulose (Enulose) 20 gm DAILY PRN PO CONSTIPATION; Start 05/28/18 at 22:30 Bisacodyl (Dulcolax Supp) 10 mg DAILY PRN [place] CONSTIPATION; Start 05/28/18 at 22:30 Acetaminophen (Tylenol Tab) 650 mg Q4H PRN PO MILD PAIN 1-3; Start 05/28/18 at 22:30 Gabapentin (Neurontin) 100 mg BID PO Last administered on 06/01/18at 10:39; Admin Dose 100 MG; Start 05/29/18 at 21:00 Acetaminophen/ Hydrocodone Bitart ([place] (10/325)) 1 tab Q4H PRN PO MODERATE PAIN LEVEL 4-6 Last administered on 05/31/18at 15:53; Admin Dose 1 TAB; Start 05/31/18 at 13:30 Baclofen (Lioresal) 10 mg TID PO Last administered on 06/01/18at 10:38; Admin Dose 10 MG; Start 05/31/18 at 21:00 Assessment/Plan Additional Assessment/Plan rehab- 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 Continue rehab as tolerated Acute pain syndrome-meds adjusted Diabetes mellitus type 2. Hypertension. Renal insufficiency. Hypothyroidism. Benign prostatic hypertrophy. History of right knee osteoarthritis with arthroscopy. History of right thumb transfer from big toe. MARIANA IRVING MD Jun 01, 2018 12:51
[2018-06-01 14:00] VITALS: BP 117/56; PULSE 60; RESP 18
[2018-06-01 17:30] VITALS: BP 107/58; PULSE 62; RESP 18
[2018-06-01 20:00] VITALS: BP 111/68; PULSE 59; RESP 18
[2018-06-01] MEDS: MAGNESIUM OXIDE 400 MG TAB PO SCH (21:08)
[2018-06-01] MEDS: ATORVASTATIN 10 MG TAB PO SCH (21:08)
[2018-06-01] MEDS: SENNA TAB PO SCH (21:08)
[2018-06-01] MEDS: TAMSULOSIN (SR) 0.4 MG CAP PO SCH (21:08)
[2018-06-02 02:00] VITALS: BP 113/71; PULSE 63; RESP 18
[2018-06-02] MEDS: LANSOPRAZOLE 30 MG CAP PO SCH (06:14)
[2018-06-02] MEDS: LEVOTHYROXINE 125 MCG TAB PO SCH (06:16)
[2018-06-02] MEDS: ACCU-CHEK XX SCH ×4 (07:05→21:00)
[2018-06-02 07:30] VITALS: BP 137/82; PULSE 63; RESP 20
[2018-06-02] MEDS: INSULIN ASPART [NOVOLOG] 3 ML PEN SC SCH ×4 (07:35→21:00)
--- NOTE | 2018-06-02 08:25 | PN ---
DATE: 06/02/2018 SUBJECTIVE: The patient is stable overnight. No fevers, chills, nausea, or vomiting. OBJECTIVE: VITAL SIGNS: Blood pressure is 113/71, respirations 18, pulse 63, temperature 97.9. HEENT: Head is normocephalic. NECK: Shows a brace. HEART: Regular rate. LUNGS: Show diminished breath sounds at the base. ABDOMEN: Soft, nontender to palpation without rebound or guarding. EXTREMITIES: Negative for clubbing, cyanosis, no edema. DERMATOLOGIC: No rashes. MUSCULOSKELETAL: No joint effusion. NEUROLOGIC: No change in exam. MEDICATIONS: Reviewed. LABORATORY DATA: From 06/01/2018 was reviewed. IMAGING STUDY: The patient's chest x-ray showed a 1.7 meters subtle density over right lower lobe, q uestionable nodule, hypoinflated lungs with scattered atelectasis. ASSESSMENT: 1. Status post posterior cervical C3-C6 laminectomy with instrumented fusion. The patient is curren tly in neck brace, continue physical therapy and occupational therapy. 2. Cough. Chest x-ray shows evidence of atelectasis. There is a questionable nodular density. We will consider getting a CT scan of the chest. Continues with incentive spirometry. 3. Hypertension. The patient is currently normotensive. Continue to hold blood pressure medication s. 4. Diabetes. Continue current diabetic regimen. 5. Benign prostatic hypertrophy. Continue Flomax. 6. Dyslipidemia. Continue statin therapy. 7. Hypothyroidism. Continue Synthroid. 8. Constipation. Continue current bowel regimen. 9. Systemic inflammatory response syndrome. The patient is completing antibiotic course. 10. Chronic kidney disease, stage III. Renal function is stable. Continue current treatment plan. 11. Mild hyponatremia, possibly due to syndrome of inappropriate antidiuretic hormone. Continue to monitor sodium levels been stable, limit free water intake. 12. Gastrointestinal and deep vein thrombosis prophylaxis. Dictated By: TESSA SHRESTHA DO NR/NTS Conf#: [id number] DID#: [id number] CC: MARIANA IRVING MD; VISHNU LANDERS DO;*EndCC*
[2018-06-02] MEDS: HYDROCODONE/APAP (10/325) TAB PO PRN (08:54)
[2018-06-02] MEDS: BACLOFEN 10 MG TAB PO SCH ×3 (08:56→22:31)
[2018-06-02] MEDS: GUAIFENESIN LA 600 MG TABSR PO SCH ×2 (08:56→22:14)
[2018-06-02] MEDS: GABAPENTIN 100 MG CAP PO SCH ×2 (08:56→22:12)
[2018-06-02] MEDS: metFORMIN 500 MG TAB PO SCH ×2 (08:56→18:03)
[2018-06-02] MEDS: DOCUSATE SODIUM 100 MG CAP PO SCH ×2 (08:56→21:00)
[2018-06-02] MEDS: LOSARTAN 50 MG TAB PO SCH (09:05)
[2018-06-02] MEDS: FOLIC ACID 1 MG TAB PO SCH (09:07)
[2018-06-02] MEDS: POLYETHYLENE GLYCOL 17 GM PACKET PO SCH ×2 (09:08→21:00)
--- NOTE | 2018-06-02 13:53 | PN ---
Date/Time of Note Date/Time of Note DATE: 06/02/18 TIME: 13:52 Subjective Improving Objective Vital Signs Date Temp Pulse Resp B/P (MAP) Pulse Ox O2 O2 Flow FiO2 Time Delivery Rate 06/02/18 98.8 63 20 137/82 94 Nasal 07:30 (100) Cannula 06/02/18 2.0 02:00 Intake and Output 06/01/18 06/01/18 06/02/18 1515:00 23:00 07:00 IntakeIntake Total 680 ml 450 ml OutputOutput Total 550 ml 480 ml 1050 ml BalanceBalance -550 ml 200 ml -600 ml Exam mod ambulation 65 feet pulm-cta Results/Medications Result Diagram: 06/01/1835 06/01/1835 Results 24 hrs Laboratory Tests Test 06/01/18 17:43 06/01/18 21:09 06/02/18 07:33 06/02/18 11:53 Bedside Glucose 97 139 105 175 Test 06/02/18 13:42 White Blood Count Pending Red Blood Count Pending Hemoglobin Pending Hematocrit Pending Mean Corpuscular Pending Volume Mean Corpuscular Pending Hemoglobin Mean Corpuscular Pending Hemoglobin Concent Red Cell Pending Distribution Width Platelet Count Pending Mean Platelet Volume Pending Medications Current Medications Tramadol HCl (Ultram) 50 mg Q4 PRN PO PAIN Last administered on 06/01/18at 10:36; Admin Dose 50 MG; Start 05/28/18 at 21:00 Tamsulosin HCl (Flomax) 0.4 mg HS PO Last administered on 06/01/18at 21:08; Admin Dose 0.4 MG; Start 05/28/18 at 21:00 Polyethylene Glycol (Miralax) 17 gm BID PO Last administered on 06/02/18 09:08; Admin Dose 17 GM; Start 05/28/18 at 21:00 Insulin Aspart (Novolog Insulin Pen) NOVOLOG *MILD* ALGORITHM WITH MEALS BED TIME SC Last administered on 06/02/18at 12:11; Admin Dose 1 UNIT; Start 05/28/18 at 22:00 Docusate Sodium (Colace) 100 mg BID PRN PO CONSTIPATION; Start 05/28/18 at 21:00 Guaifenesin (Mucinex) 600 mg BID PO Last administered on 06/02/18at 08:56; Admin Dose 600 MG; Start 05/28/18 at 21:00 Miscellaneous Information 1 ea NOTE XX ; Start 05/28/18 at 21:00 Glucose (Glutose) 15 gm Q15M PRN PO DECREASED GLUCOSE; Start 05/28/18 at 21:00 Glucose (Glutose) 22.5 gm Q15M PRN PO DECREASED GLUCOSE; Start 05/28/18 at 21:00 Dextrose (D50w Syringe) 25 ml Q15M PRN IV DECREASED GLUCOSE; Start 05/28/18 at 21:00 Dextrose (D50w Syringe) 50 ml Q15M PRN IV DECREASED GLUCOSE; Start 05/28/18 at 21:00 Glucagon (Glucagen) 1 mg Q15M PRN IM DECREASED GLUCOSE; Start 05/28/18 at 21:00 Glucose (Glutose) 15 gm Q15M PRN BUCCAL DECREASED GLUCOSE; Start 05/28/18 at 21:00 Albuterol/ Ipratropium (Duoneb) 3 ml Q6H RESP THERAPY PRN HHN SHORTNESS OF BREATH Last administered on 06/01/18at 08:54; Admin Dose 3 ML; Start 05/28/18 at 2 1:00 Ondansetron HCl (Zofran Tab) 4 mg Q4 PRN PO NAUSEA AND/OR VOMITING Last administered on 05/31/18 09:30; Admin Dose 4 MG; Start 05/28/18 at 21:00 Atorvastatin Calcium (Lipitor) 10 mg HS PO Last administered on 06/01/18 21:08; Admin Dose 10 MG; Start 05/28/18 at 21:00 Cyclobenzaprine HCl (Flexeril) 5 mg TID PRN PO MUSCLE SPASMS Last administered on 05/31/18 13:03; Admin Dose 5 MG; Start 05/28/18 at 21:00 Folic Acid (Folic Acid) 1 mg DAILY PO Last administered on 06/02/18 09:07; Admin Dose 1 MG; Start 05/29/18 at 09:00 Levothyroxine Sodium (Synthroid) 125 mcg DAILY@06 PO Last administered on 06/02/18 06:16; Admin Dose 125 MCG; Start 05/29/18 at 06:00 Losartan Potassium (Cozaar) 50 mg DAILY PO Last administered on 06/02/18 09:05; Admin Dose 50 MG; Start 05/29/18 at 09:00 Magnesium Oxide (Mag-Ox 400) 400 mg HS PO Last administered on 06/01/18 21:08; Admin Dose 400 MG; Start 05/28/18 at 21:00 Metformin HCl (Glucophage) 1,000 mg BID WITH MEALS PO Last administered on 06/02/18 08:56; Admin Dose 1,000 MG; Start 05/29/18 at 07:35 Diagnostic Test (Pha) (Accu-Chek) 1 ea AC MEALS AND BEDTIME XX Last administered on 06/02/18 12:11; Admin Dose 1 EA; Start 05/28/18 at 21:00 Miscellaneous Information (Pending [facility] Order For Wound Care) This patient pena... PRN PRN XX WOUND CARE; Start 05/28/18 at 22:00 Cyanocobalamin (Vitamin B12 Inj) 1,000 mcg Q30D IM ; Start 06/14/18 at 22:30 Lansoprazole (Prevacid) 30 mg DAILY@06 PO Last administered on 06/02/18 06:14; Admin Dose 30 MG; Start 05/29/18 at 06:00 Docusate Sodium (Colace) 100 mg BID PO Last administered on 06/02/18 08:56; Admin Dose 100 MG; Start 05/29/18 at 09:00 Senna (Senokot) 1 tab HS PO Last administered on 06/01/18 21:08; Admin Dose 1 TAB; Start 05/29/18 at 21:00 Lactulose (Enulose) 20 gm DAILY PRN PO CONSTIPATION; Start 05/28/18 at 22:30 Bisacodyl (Dulcolax Supp) 10 mg DAILY PRN [place] CONSTIPATION; Start 05/28/18 at 22:30 Acetaminophen (Tylenol Tab) 650 mg Q4H PRN PO MILD PAIN 1-3; Start 05/28/18 at 22:30 Gabapentin (Neurontin) 100 mg BID PO Last administered on 06/02/18 08:56; Admin Dose 100 MG; Start 05/29/18 at 21:00 Acetaminophen/ Hydrocodone Bitart ([place] (10/325)) 1 tab Q4H PRN PO MODERATE PAIN LEVEL 4-6 Last administered on 06/02/18 08:54; Admin Dose 1 TAB; Start 05/31/18 at 13:30 Baclofen (Lioresal) 10 mg TID PO Last administered on 06/02/18at 08:56; Admin Dose 10 MG; Start 05/31/18 at 21:00 Assessment/Plan Additional Assessment/Plan rehab- 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 Continue rehab as tolerated, progressing Acute pain syndrome-under better control Diabetes mellitus type 2. Hypertension. Renal insufficiency. Hypothyroidism. Benign prostatic hypertrophy. History of right knee osteoarthritis with arthroscopy. History of right thumb transfer from big toe. MARIANA IRVING MD Jun 02, 2018 13:53
[2018-06-02 14:00] VITALS: BP 112/66; PULSE 61; RESP 20
[2018-06-02] MEDS: LACTULOSE 30ML CUP PO PRN (18:04)
[2018-06-02 19:29] VITALS: BP 130/63; PULSE 64; RESP 18
--- NOTE | 2018-06-02 19:58 | CONS ---
DATE OF ADMISSION: 05/28/2018 DATE OF CONSULTATION: 06/02/2018 TYPE OF CONSULTATION: Psychological. REFERRING PHYSICIAN: Mariana Townsend MD. CONSULTING PSYCHOLOGIST: De De Leon, PhD. REASON FOR CONSULTATION: This consultation was requested by Dr. Karla Townsend in order to evaluate t he cognitive and emotional functioning of this patient related to his present medical condition. HISTORY OF PRESENT ILLNESS: The patient is a 72-year-old male. The patient does have a past medical history of diabetes. The patient does have hypothyroidism and a history of hypertension. The patie nt also has cervical stenosis and spondylitis. The patient underwent a posterior cervical C3-C6 lami nectomy with instrumented fusion. The patient was then cleared medically and sent to the acute rehab ilitation unit for acute multidisciplinary rehabilitation. The patient is motivated to get better an d does want to return to his previous level of functioning. FAMILY AND SOCIAL HISTORY: The patient lives in a home in [place] with his . The patient majano s want to return there after discharge. MEDICATIONS: The patient is currently not on any psychotropic medications. SUBSTANCE USE: The patient reports that he does not smoke. The patient reports that he does not use alcohol or other drugs. MENTAL STATUS EXAMINATION: APPEARANCE: The patient was seen in his wheelchair. He is of average height and weight. The patien t is left handed. The patient is on oxygen and is wearing a collar. BEHAVIOR: The patient was cooperative during the consultation. The patient did attempt to answer al l questions presented to him by the interviewer. MOOD AND AFFECT: The patient's mood appears to be somewhat depressed. The patient reports "I wish i t was not happening." The patient affect was slightly anxious. PERCEPTION: The patient reports no hallucinations or delusions. The patient was alert to person, pl torey, situation and time. MEMORY AND COGNITION: The patient's memory and cognition appear to be intact. He was able to rememb er recent and remote events. The patient was able to name the hospital. The patient was able to nam e the month and the year. The patient was able to name the president, the governor, and the mayor. The patient was able to do 5 serial-7 subtractions from 100 without error. The patient could not spe ll "world" backwards adequately. The patient did spell "drlow" but overall the patient's cognitions appear to be adequate. INTELLIGENCE: Intelligence appears to fall in the average range. INSIGHT: Fair. JUDGMENT: Fair. THOUGHT CONTENT: The patient is concerned about his medical condition. The patient is very frustrat ed about what is happening to him. The patient is motivated to get better. The patient will try his best to do whatever he can to return to his previous level of functioning. DISCUSSION: The patient can likely benefit from some cognitive/behavioral psychotherapy while he is on the unit. Psychotherapy would focus on his underlying level of depression regarding all his medic al problems. 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 Thank you very much, Dr. Karla Townsend, for referring this individual. Please do not hesitate to emilia colvin if you have additional questions. Dictated By: DE DE LEON PHD RK/NAOMI Conf#: [id number] DID#: [id number] CC: MARIANA TOWNSEND MD; VISHNU LANDERS DO;*EndCC*
[2018-06-02] MEDS: SENNA TAB PO SCH (21:00)
[2018-06-02] MEDS: ATORVASTATIN 10 MG TAB PO SCH (22:12)
[2018-06-02] MEDS: MAGNESIUM OXIDE 400 MG TAB PO SCH (22:12)
[2018-06-02] MEDS: traMADol 50 MG TAB PO PRN (22:13)
[2018-06-02] MEDS: TAMSULOSIN (SR) 0.4 MG CAP PO SCH (22:13)
[2018-06-03] MEDS: ACETAMINOPHEN 325 MG TAB PO PRN (00:10)
[2018-06-03] MEDS: SALINE 0.65% 45 ML NAS SPRAY NASAL PRN ×2 (00:11→18:40)
[2018-06-03 02:00] VITALS: BP 118/68; PULSE 67; RESP 18
[2018-06-03 07:00] VITALS: BP 114/74; PULSE 59; RESP 18
[2018-06-03] MEDS: LANSOPRAZOLE 30 MG CAP PO SCH (07:10)
[2018-06-03] MEDS: LEVOTHYROXINE 125 MCG TAB PO SCH (07:10)
[2018-06-03] MEDS: INSULIN ASPART [NOVOLOG] 3 ML PEN SC SCH ×4 (07:35→20:27)
[2018-06-03] MEDS: ACCU-CHEK XX SCH ×4 (08:00→20:27)
[2018-06-03] MEDS: metFORMIN 500 MG TAB PO SCH ×2 (08:20→17:39)
--- NOTE | 2018-06-03 08:53 | PN ---
DATE: 06/03/2018 SUBJECTIVE: The patient is stable. No events overnight. OBJECTIVE: VITAL SIGNS: Blood pressure is 118/68, respirations 18, pulse 67, temperature 98.0. HEENT: Head is normocephalic. NECK: Supple. HEART: Regular rate. LUNGS: Show diminished breath sounds at the base. ABDOMEN: Soft, nontender to palpation without rebound or guarding. EXTREMITIES: Negative for clubbing, cyanosis, no edema. DERMATOLOGIC: No rashes. MUSCULOSKELETAL: No joint effusion. NEUROLOGIC: No change in exam. MEDICATIONS: Reviewed. LABORATORY DATA: Reviewed. ASSESSMENT AND PLAN: 1. Status post posterior cervical C3-C6 laminectomy with instrumented fusion. The patient is curren tly in neck brace, continue physical therapy and occupational therapy. 2. Cough. Etiology is likely due to atelectasis. Continue incentive spirometry. 3. Hypertension. The patient is currently normotensive. Continue to monitor. 4. Diabetes. Continue current diabetic regimen. 5. Benign prostatic hypertrophy. Continue Flomax. 6. Dyslipidemia. Continue statin therapy. 7. Hypothyroidism. Continue Synthroid. 8. Constipation. Continue current bowel regimen. 9. Systemic inflammatory response syndrome. The patient is completing antibiotic course. 10. Nonoliguric acute on top of chronic kidney disease. Etiology is secondary to hemodynamics. Luis al is improving. Continue current treatment plan, supportive care and renally dose all medicines. 11. Mild hypernatremia. Continue to monitor sodium levels and limit free water intake. 12. Gastrointestinal and deep vein thrombosis prophylaxis. Dictated By: TESSA SHRESTHA DO NR/NTS Conf#: [id number] DID#: [id number] CC: MARIANA IRVING MD; VISHNU LANDERS DO;*EndCC*
[2018-06-03] MEDS: POLYETHYLENE GLYCOL 17 GM PACKET PO SCH ×2 (09:00→20:24)
[2018-06-03] MEDS: LOSARTAN 50 MG TAB PO SCH (09:00)
[2018-06-03] MEDS: DOCUSATE SODIUM 100 MG CAP PO SCH ×2 (09:00→20:20)
[2018-06-03] MEDS: GUAIFENESIN LA 600 MG TABSR PO SCH ×2 (09:51→20:20)
[2018-06-03] MEDS: GABAPENTIN 100 MG CAP PO SCH ×2 (09:51→20:20)
[2018-06-03] MEDS: BACLOFEN 10 MG TAB PO SCH ×3 (09:51→20:20)
[2018-06-03] MEDS: FOLIC ACID 1 MG TAB PO SCH (09:51)
--- NOTE | 2018-06-03 11:19 | PN ---
Date/Time of Note Date/Time of Note DATE: 06/03/18 TIME: 11:19 Subjective No new complaints Objective Vital Signs Date Temp Pulse Resp B/P (MAP) Pulse Ox O2 O2 Flow FiO2 Time Delivery Rate 06/03/18 97.5 59 18 114/74 90 Room Air 07:00 (87) 06/02/18 2.0 02:00 Intake and Output 06/02/18 06/02/18 06/03/18 1515:00 23:00 07:00 IntakeIntake Total 1080 ml 550 ml OutputOutput Total 600 ml BalanceBalance 480 ml 550 ml Exam pulm-cta min assist ambulation 65 feet Results/Medications Result Diagram: 06/02/18 1342 06/01/18 0735 Results 24 hrs Laboratory Tests Test 06/02/18 11:53 06/02/18 13:42 06/02/18 18:01 06/02/18 22:09 Bedside Glucose 175 88 132 White Blood Count 8.7 # Red Blood Count 4.12 L Hemoglobin 13.5 L Hematocrit 40.7 L Mean Corpuscular 98.8 Volume Mean Corpuscular 32.8 Hemoglobin Mean Corpuscular 33.2 Hemoglobin Concent Red Cell 13.3 Distribution Width Platelet Count 234 # Mean Platelet Volume 9.5 Immature 4.700 H Granulocytes % Neutrophils % 67.6 Lymphocytes % 17.1 Monocytes % 8.3 Eosinophils % 1.3 Basophils % 1.0 Nucleated Red Blood 0.0 Cells % Immature 0.410 H Granulocytes # Neutrophils # 5.9 Lymphocytes # 1.5 Monocytes # 0.7 Eosinophils # 0.1 Basophils # 0.1 Nucleated Red Blood 0.0 Cells # Test 06/03/18 07:35 Bedside Glucose 118 Medications Current Medications Tramadol HCl (Ultram) 50 mg Q4 PRN PO PAIN Last administered on 06/02/18at 22:13; Admin Dose 50 MG; Start 05/28/18 at 21:00 Tamsulosin HCl (Flomax) 0.4 mg HS PO Last administered on 06/02/18at 22:13; Admin Dose 0.4 MG; Start 05/28/18 at 21:00 Polyethylene Glycol (Miralax) 17 gm BID PO Last administered on 06/02/18at 09:08; Admin Dose 17 GM; Start 05/28/18 at 21:00 Insulin Aspart (Novolog Insulin Pen) NOVOLOG *MILD* ALGORITHM WITH MEALS BEDTIME SC Last administered on 06/02/18 12:11; Admin Dose 1 UNIT; Start 05/28/18 at 22:00 Docusate Sodium (Colace) 100 mg BID PRN PO CONSTIPATION; Start 05/28/18 at 21:00 Guaifenesin (Mucinex) 600 mg BID PO Last administered on 06/03/18 09:51; Admin Dose 600 MG; Start 05/28/18 at 21:00 Miscellaneous Information 1 ea NOTE XX ; Start 05/28/18 at 21:00 Glucose (Glutose) 15 gm Q15M PRN PO DECREASED GLUCOSE; Start 05/28/18 at 21:00 Glucose (Glutose) 22.5 gm Q15M PRN PO DECREASED GLUCOSE; Start 05/28/18 at 21:00 Dextrose (D50w Syringe) 25 ml Q15M PRN IV DECREASED GLUCOSE; Start 05/28/18 at 21:00 Dextrose (D50w Syringe) 50 ml Q15M PRN IV DECREASED GLUCOSE; Start 05/28/18 at 21:00 Glucagon (Glucagen) 1 mg Q15M PRN IM DECREASED GLUCOSE; Start 05/28/18 at 21:00 Glucose (Glutose) 15 gm Q15M PRN BUCCAL DECREASED GLUCOSE; Start 05/28/18 at 21:00 Albuterol/ Ipratropium (Duoneb) 3 ml Q6H RESP THERAPY PRN HHN SHORTNESS OF BREATH Last administered on 06/01/18 08:54; Admin Dose 3 ML; Start 05/28/18 at 21:00 Ondansetron HCl (Zofran Tab) 4 mg Q4 PRN PO NAUSEA AND/OR VOMITING Last administered on 05/31/18 09:30; Admin Dose 4 MG; Start 05/28/18 at 21:00 Atorvastatin Calcium (Lipitor) 10 mg HS PO Last administered on 06/02/18 22:12; Admin Dose 10 MG; Start 05/28/18 at 21:00 Cyclobenzaprine HCl (Flexeril) 5 mg TID PRN PO MUSCLE SPASMS Last administered on 05/31/18 13:03; Admin Dose 5 MG; Start 05/28/18 at 21:00 Folic Acid (Folic Acid) 1 mg DAILY PO Last administered on 06/03/18 09:51; Admin Dose 1 MG; Start 05/29/18 at 09:00 Levothyroxine Sodium (Synthroid) 125 mcg DAILY@06 PO Last administered on 06/03/18 07:10; Admin Dose 125 MCG; Start 05/29/18 at 06:00 Losartan Potassium (Cozaar) 50 mg DAILY PO Last administered on 06/02/18 09:05; Admin Dose 50 MG; Start 05/29/18 at 09:00 Magnesium Oxide (Mag-Ox 400) 400 mg HS PO Last administered on 06/02/18 22:12; Admin Dose 400 MG; Start 05/28/18 at 21:00 Metformin HCl (Glucophage) 1,000 mg BID WITH MEALS PO Last administered on 06/03/18 08:20; Admin Dose 1,000 MG; Start 05/29/18 at 07:35 Diagnostic Test (Pha) (Accu-Chek) 1 ea AC MEALS AND BEDTIME XX Last administered on 06/03/18 08:00; Admin Dose 1 EA; Start 05/28/18 at 21:00 Miscellaneous Information (Pending [facility] Order For Wound Care) This patient pena... PRN PRN XX WOUND CARE; Start 05/28/18 at 22:00 Cyanocobalamin (Vitamin B12 Inj) 1,000 mcg Q30D IM ; Start 06/14/18 at 22:30 Lansoprazole (Prevacid) 30 mg DAILY@06 PO Last administered on 06/03/18 07:10; Admin Dose 30 MG; Start 05/29/18 at 06:00 Docusate Sodium (Colace) 100 mg BID PO Last administered on 06/02/18 08:56; Admin Dose 100 MG; Start 05/29/18 at 09:00 Senna (Senokot) 1 tab HS PO Last administered on 06/01/18 21:08; Admin Dose 1 TAB; Start 05/29/18 at 21:00 Lactulose (Enulose) 20 gm DAILY PRN PO CONSTIPATION Last administered on 06/02/18 18:04; Admin Dose 20 GM; Start 05/28/18 at 22:30 Bisacodyl (Dulcolax Supp) 10 mg DAILY PRN [place] CONSTIPATION; Start 05/28/18 at 22:30 Acetaminophen (Tylenol Tab) 650 mg Q4H PRN PO MILD PAIN 1-3 Last administered on 06/03/18 00:10; Admin Dose 650 MG; Start 05/28/18 at 22:30 Gabapentin (Neurontin) 100 mg BID PO Last administered on 06/03/18 09:51; Admin Dose 100 MG; Start 05/29/18 at 21:00 Acetaminophen/ Hydrocodone Bitart ([place] (10/325)) 1 tab Q4H PRN PO MODERATE PAIN LEVEL 4-6 Last administered on 06/02/18 08:54; Admin Dose 1 TAB; Start 05/31/18 at 13:30 Baclofen (Lioresal) 10 mg TID PO Last administered on 06/03/18 09:51; Admin Dose 10 MG; Start 05/31/18 at 21:00 Sodium Chloride (Deep Sea) 2 spray QID PRN NASAL STUFFYNESS Last administered on 06/03/18 00:11; Admin Dose 2 SPRAY; Start 06/02/18 at 23:00 Assessment/Plan Additional Assessment/Plan rehab- Nontraumatic cervical spinal cord injury with cervical spinal stenosis and spondylitis, status post posterior C3 through C6 laminectomy and fusion. Good progress, continue program Acute pain syndrome-under better control Diabetes mellitus type 2. Hypertension. Renal insufficiency. Hypothyroidism. Benign prostatic hypertrophy. History of right knee osteoarthritis with arthroscopy. History of right thumb transfer from big toe. MARIANA IRVING MD Jun 03, 2018 11:19
[2018-06-03 14:00] VITALS: BP 118/70; PULSE 70; RESP 18
[2018-06-03 19:41] VITALS: BP 101/62; PULSE 78; RESP 19
[2018-06-03] MEDS: ATORVASTATIN 10 MG TAB PO SCH (20:20)
[2018-06-03] MEDS: MAGNESIUM OXIDE 400 MG TAB PO SCH (20:20)
[2018-06-03] MEDS: TAMSULOSIN (SR) 0.4 MG CAP PO SCH (20:20)
[2018-06-03] MEDS: SENNA TAB PO SCH (20:25)
[2018-06-04 02:56] VITALS: BP 106/67; PULSE 70; RESP 19
[2018-06-04] MEDS: LANSOPRAZOLE 30 MG CAP PO SCH (06:45)
[2018-06-04] MEDS: LEVOTHYROXINE 125 MCG TAB PO SCH (06:45)
[2018-06-04] MEDS: ACCU-CHEK XX SCH ×4 (07:05→20:49)
[2018-06-04 07:30] VITALS: BP 111/75; PULSE 66; RESP 20
[2018-06-04] MEDS: INSULIN ASPART [NOVOLOG] 3 ML PEN SC SCH ×4 (07:35→20:49)
--- NOTE | 2018-06-04 07:56 | PN ---
Date/Time of Note Date/Time of Note DATE: 06/04/18 TIME: 07:54 Subjective AWKE ALERT, MILD PAIN, PO GOOD Objective Vital Signs Date Temp Pulse Resp B/P (MAP) Pulse Ox O2 O2 Flow FiO2 Time Delivery Rate 06/04/18 97.8 70 19 106/67 93 Room Air 02:56 (80) 06/02/18 2.0 02:00 Intake and Output 06/03/18 06/03/18 06/04/18 1515:00 23:00 07:00 IntakeIntake Total 240 ml 1200 ml OutputOutput Total 200 ml 700 ml BalanceBalance 40 ml 500 ml Exam LUNGS CTA COR RRR UE MOTOR 4+/5 B CLOF GAIT AND XT MIN A FWW Results/Medications Result Diagram: 06/02/18 1342 06/01/18 0735 Results 24 hrs Laboratory Tests Test 06/03/18 12:15 06/03/18 17:37 06/03/18 20:26 Bedside Glucose 144 109 131 Medications Current Medications Tramadol HCl (Ultram) 50 mg Q4 PRN PO PAIN Last administered on 06/02/18at 22:13; Admin Dose 50 MG; Start 05/28/18 at 21:00 Tamsulosin HCl (Flomax) 0.4 mg HS PO Last administered on 06/03/18at 20:20; Admin Dose 0.4 MG; Start 05/28/18 at 21:00 Polyethylene Glycol (Miralax) 17 gm BID PO Last administered on 06/02/18at 09:0 8; Admin Dose 17 GM; Start 05/28/18 at 21:00 Insulin Aspart (Novolog Insulin Pen) NOVOLOG *MILD* ALGORITHM WITH MEALS BEDTIME SC Last administered on 06/03/18at 12:20; Admin Dose 1 UNIT; Start 05/28/18 at 22:00 Docusate Sodium (Colace) 100 mg BID PRN PO CONSTIPATION; Start 05/28/18 at 21:00 Guaifenesin (Mucinex) 600 mg BID PO Last administered on 06/03/18at 20:20; Admin Dose 600 MG; Start 05/28/18 at 21:00 Miscellaneous Information 1 ea NOTE XX ; Start 05/28/18 at 21:00 Glucose (Glutose) 15 gm Q15M PRN PO DECREASED GLUCOSE; Start 05/28/18 at 21:00 Glucose (Glutose) 22.5 gm Q15M PRN PO DECREASED GLUCOSE; Start 05/28/18 at 21:00 Dextrose (D50w Syringe) 25 ml Q15M PRN IV DECREASED GLUCOSE; Start 05/28/18 at 21:00 Dextrose (D50w Syringe) 50 ml Q15M PRN IV DECREASED GLUCOSE; Start 05/28/18 at 21:00 Glucagon (Glucagen) 1 mg Q15M PRN IM DECREASED GLUCOSE; Start 05/28/18 at 21:00 Glucose (Glutose) 15 gm Q15M PRN BUCCAL DECREASED GLUCOSE; Start 05/28/18 at 21:00 Albuterol/ Ipratropium (Duoneb) 3 ml Q6H RESP THERAPY PRN HHN SHORTNESS OF BREATH Last administered on 06/01/18 08:54; Admin Dose 3 ML; Start 05/28/18 at 21:00 Ondansetron HCl (Zofran Tab) 4 mg Q4 PRN PO NAUSEA AND/OR VOMITING Last a dministered on 05/31/18 09:30; Admin Dose 4 MG; Start 05/28/18 at 21:00 Atorvastatin Calcium (Lipitor) 10 mg HS PO Last administered on 06/03/18 20:20; Admin Dose 10 MG; Start 05/28/18 at 21:00 Cyclobenzaprine HCl (Flexeril) 5 mg TID PRN PO MUSCLE SPASMS Last administered on 05/31/18 13:03; Admin Dose 5 MG; Start 05/28/18 at 21:00 Folic Acid (Folic Acid) 1 mg DAILY PO Last administered on 06/03/18 09:51; Admin Dose 1 MG; Start 05/29/18 at 09:00 Levothyroxine Sodium (Synthroid) 125 mcg DAILY@06 PO Last administered on 06/04/18 06:45; Admin Dose 125 MCG; Start 05/29/18 at 06:00 Losartan Potassium (Cozaar) 50 mg DAILY PO Last administered on 06/02/18 09:05; Admin Dose 50 MG; Start 05/29/18 at 09:00 Magnesium Oxide (Mag-Ox 400) 400 mg HS PO Last administered on 06/03/18 20:20; Admin Dose 400 MG; Start 05/28/18 at 21:00 Metformin HCl (Glucophage) 1,000 mg BID WITH MEALS PO Last administered on 06/03/18 17:39; Admin Dose 1,000 MG; Start 05/29/18 at 07:35 Diagnostic Test (Pha) (Accu-Chek) 1 ea AC MEALS AND BEDTIME XX Last administered on 06/03/18 20:27; Admin Dose 1 EA; Start 05/28/18 at 21:00 Miscellaneous Information (Pending [facility] Order For Wound Care) This patient pena... PRN PRN XX WOUND CARE; Start 05/28/18 at 22:00 Cyanocobalamin (Vitamin B12 Inj) 1,000 mcg Q30D IM ; Start 06/14/18 at 22:30 Lansoprazole (Prevacid) 30 mg DAILY@06 PO Last administered on 06/04/18 06:45; Admin Dose 30 MG; Start 05/29/18 at 06:00 Docusate Sodium (Colace) 100 mg BID PO Last administered on 06/03/18 20:20; Admin Dose 100 MG; Start 05/29/18 at 09:00 Senna (Senokot) 1 tab HS PO Last administered on 06/01/18 21:08; Admin Dose 1 TAB; Start 05/29/18 at 21:00 Lactulose (Enulose) 20 gm DAILY PRN PO CONSTIPATION Last administered on 06/02/18 18:04; Admin Dose 20 GM; Start 05/28/18 at 22:30 Bisacodyl (Dulcolax Supp) 10 mg DAILY PRN [place] CONSTIPATION; Start 05/28/18 at 22:30 Acetaminophen (Tylenol Tab) 650 mg Q4H PRN PO MILD PAIN 1-3 Last administered on 06/03/18 00:10; Admin Dose 650 MG; Start 05/28/18 at 22:30 Gabapentin (Neurontin) 100 mg BID PO Last administered on 06/03/18 20:20; Admin Dose 100 MG; Start 05/29/18 at 21:00 Acetaminophen/ Hydrocodone Bitart ([place] (10/325)) 1 tab Q4H PRN PO MODERATE PAIN LEVEL 4-6 Last administered on 06/02/18 08:54; Admin Dose 1 TAB; Start 05/31/18 at 13:30 Baclofen (Lioresal) 10 mg TID PO Last administered on 3/14/19at 20:20; Admin Dose 10 MG; Start 05/31/18 at 21:00 Sodium Chloride (Deep Sea) 2 spray QID PRN NASAL STUFFYNESS Last administered on 06/03/18at 18:40; Admin Dose 2 SPRAY; Start 06/02/18 at 23:00 Assessment/Plan Additional Assessment/Plan rehab- Nontraumatic cervical spinal cord injury with cervical spinal stenosis and spondylitis, status post posterior C3 through C6 laminectomy and fusion. Good progress, continue program. CONT ASP COLLAR Acute pain syndrome-under better control Diabetes mellitus type 2. Hypertension.MAINTAIN SBP <150 Renal insufficiency. Hypothyroidism. Benign prostatic hypertrophy.NO EVIDENCE OF RETENTION History of right knee osteoarthritis with arthroscopy. History of right thumb transfer from big toe. WASHINGTON IRVING MD Jun 04, 2018 07:55
[2018-06-04] MEDS: metFORMIN 500 MG TAB PO SCH ×2 (08:40→17:50)
[2018-06-04] MEDS: FOLIC ACID 1 MG TAB PO SCH (08:41)
[2018-06-04] MEDS: BACLOFEN 10 MG TAB PO SCH ×3 (08:41→20:37)
[2018-06-04] MEDS: GUAIFENESIN LA 600 MG TABSR PO SCH ×2 (08:41→20:37)
[2018-06-04] MEDS: DOCUSATE SODIUM 100 MG CAP PO SCH ×2 (08:41→20:37)
[2018-06-04] MEDS: GABAPENTIN 100 MG CAP PO SCH ×2 (08:42→20:37)
[2018-06-04] MEDS: LOSARTAN 50 MG TAB PO SCH (08:42)
[2018-06-04] MEDS: POLYETHYLENE GLYCOL 17 GM PACKET PO SCH ×2 (08:42→20:37)
--- NOTE | 2018-06-04 09:32 | PN ---
DATE: 06/04/2018 SUBJECTIVE: The patient is stable. No events overnight. OBJECTIVE: VITAL SIGNS: Blood pressure is 119/70, pulse 78, respirations 19, temperature 99.8. HEENT: Head is normocephalic. NECK: The patient has neck brace. HEART: Regular rate. LUNGS: Show diminished breath sounds at the base. ABDOMEN: Soft, nontender to palpation without rebound or guarding. EXTREMITIES: Negative for clubbing, cyanosis, no edema. DERMATOLOGIC: No rashes. MUSCULOSKELETAL: No joint effusion. NEUROLOGIC: No change in exam. MEDICATIONS: Reviewed. LABORATORY DATA: Reviewed. ASSESSMENT AND PLAN: 1. Status post posterior cervical C3-C6 laminectomy with instrumented fusion. The patient is curren tly in neck brace, continue physical therapy and occupational therapy. Cough, improving, likely seco ndary to atelectasis. Continue incentive spirometry. 2. Hypertension. Continue current blood pressure regimen. 3. Diabetes. Continue current diabetic regimen. 4. Benign prostatic hypertrophy. Continue Flomax. 5. Dyslipidemia. Continue statin therapy. 6. Hypothyroidism. Continue Synthroid. 7. Constipation. Continue current bowel regimen. 8. Nonoliguric acute kidney injury on top of chronic kidney disease. Etiology is secondary to hemod ynamics. Renal function is improved. Continue to monitor. 9. Mild hyponatremia. Continue to monitor serum sodium levels and limit free water intake. 10. Gastrointestinal and deep vein thrombosis prophylaxis. Dictated By: TESSA SHRESTHA DO NR/NTS Conf#: [id number] DID#: [id number] CC: VISHNU LANDERS DO; MARIANA IRVING MD;*End*
[2018-06-04] MEDS: ACETAMINOPHEN 325 MG TAB PO PRN (13:48)
[2018-06-04 14:00] VITALS: BP 94/52; PULSE 82; RESP 20
[2018-06-04 20:35] VITALS: BP 112/71; PULSE 71; RESP 18
[2018-06-04] MEDS: SENNA TAB PO SCH (20:37)
[2018-06-04] MEDS: MAGNESIUM OXIDE 400 MG TAB PO SCH (20:37)
[2018-06-04] MEDS: ATORVASTATIN 10 MG TAB PO SCH (20:37)
[2018-06-04] MEDS: TAMSULOSIN (SR) 0.4 MG CAP PO SCH (20:37)
[2018-06-05 02:00] VITALS: BP 117/68; PULSE 77; RESP 18
[2018-06-05] MEDS: LEVOTHYROXINE 125 MCG TAB PO SCH (06:12)
[2018-06-05] MEDS: LANSOPRAZOLE 30 MG CAP PO SCH (06:12)
--- NOTE | 2018-06-05 06:57 | PN ---
Date/Time of Note Date/Time of Note DATE: 06/05/18 TIME: 06:56 Subjective AWAKE ALERT, SOME PERISCAPULAR PAIN Objective Vital Signs Date Temp Pulse Resp B/P (MAP) Pulse Ox O2 O2 Flow FiO2 Time Delivery Rate 06/05/18 98.2 77 18 117/68 96 Nasal 02:00 (84) Cannula 06/02/18 2.0 02:00 Intake and Output 06/04/18 06/04/18 06/05/18 1515:00 23:00 07:00 IntakeIntake Total 1100 ml OutputOutput Total 200 ml BalanceBalance 900 ml Exam LUNGS CTA COR RRR MOTOR FAIR CLOF XT AND GAIT LISA FWW Results/Medications Result Diagram: 06/02/18 1342 06/01/18 0735 Results 24 hrs Laboratory Tests Test 06/04/18 08:31 06/04/18 12:04 06/04/18 17:39 06/04/18 17:48 Bedside Glucose 110 111 116 115 Test 06/04/18 20:43 Bedside Glucose 139 Medications Current Medications Tramadol HCl (Ultram) 50 mg Q4 PRN PO PAIN Last administered on 06/02/18at 22:13; Admin Dose 50 MG; Start 05/28/18 at 21:00 Tamsulosin HCl (Flomax) 0.4 mg HS PO Last administered on 06/04/18at 20:37; Admin Dose 0.4 MG; Start 05/28/18 at 21:00 Polyethylene Glycol (Miralax) 17 gm BID PO Last administered on 06/02/18at 09:08; Admin Dose 17 GM; Start 05/28/18 at 21:00 Insulin Aspart (Novolog Insulin Pen) NOVOLOG *MILD* ALGORITHM WITH MEALS BEDTIME SC Last administered on 06/03/18at 12:20; Admin Dose 1 UNIT; Start 05/28/18 at 22:00 Docusate Sodium (Colace) 100 mg BID PRN PO CONSTIPATION; Start 05/28/18 at 21:00 Guaifenesin (Mucinex) 600 mg BID PO Last administered on 06/04/18at 20:37; Admin Dose 600 MG; Start 05/28/18 at 21:00 Miscellaneous Information 1 ea NOTE XX ; Start 05/28/18 at 21:00 Glucose (Glutose) 15 gm Q15M PRN PO DECREASED GLUCOSE; Start 05/28/18 at 21:00 Glucose (Glutose) 22.5 gm Q15M PRN PO DECREASED GLUCOSE; Start 05/28/18 at 21:00 Dextrose (D50w Syringe) 25 ml Q15M PRN IV DECREASED GLUCOSE; Start 05/28/18 at 21:00 Dextrose (D50w Syringe) 50 ml Q15M PRN IV DECREASED GLUCOSE; Start 05/28/18 at 21:00 Glucagon (Glucagen) 1 mg Q15M PRN IM DECREASED GLUCOSE; Start 05/28/18 at 21:00 Glucose (Glutose) 15 gm Q15M PRN BUCCAL DECREASED GLUCOSE; Start 05/28/18 at 21:00 Albuterol/ Ipratropium (Duoneb) 3 ml Q6H RESP THERAPY PRN HHN SHORTNESS OF BREATH Last administered on 06/01/18 08:54; Admin Dose 3 ML; Start 05/28/18 at 21:00 Ondansetron HCl (Zofran Tab) 4 mg Q4 PRN PO NAUSEA AND/OR VOMITING Last administered on 05/31/18 09:30; Admin Dose 4 MG; Start 05/28/18 at 21:00 Atorvastatin Calcium (Lipitor) 10 mg HS PO Last administered on 06/04/18 20:37; Admin Dose 10 MG; Start 05/28/18 at 21:00 Cyclobenzaprine HCl (Flexeril) 5 mg TID PRN PO MUSCLE SPASMS Last administered on 05/31/18 13:03; Admin Dose 5 MG; Start 05/28/18 at 21:00 Folic Acid (Folic Acid) 1 mg DAILY PO Last administered on 06/04/18 08:41; Admin Dose 1 MG; Start 05/29/18 at 09:00 Levothyroxine Sodium (Synthroid) 125 mcg DAILY@06 PO Last administered on 06/05/18 06:12; Admin Dose 125 MCG; Start 05/29/18 at 06:00 Losartan Potassium (Cozaar) 50 mg DAILY PO Last administered on 06/04/18 08:42; Admin Dose 50 MG; Start 05/29/18 at 09:00 Magnesium Oxide (Mag-Ox 400) 400 mg HS PO Last administered on 06/04/18 20:37; Admin Dose 400 MG; Start 05/28/18 at 21:00 Metformin HCl (Glucophage) 1,000 mg BID WITH MEALS PO Last administered on 06/04/18 17:50; Admin Dose 1,000 MG; Start 05/29/18 at 07:35 Diagnostic Test (Pha) (Accu-Chek) 1 ea AC MEALS AND BEDTIME XX Last administered on 06/04/18 20:49; Admin Dose 1 EA; Start 05/28/18 at 21:00 Miscellaneous Information ([facility]) This patient pena... PRN PRN XX WOUND CARE; Start 05/28/18 at 22:00 Cyanocobalamin (Vitamin B12 Inj) 1,000 mcg Q30D IM ; Start 06/14/18 at 22:30 Lansoprazole (Prevacid) 30 mg DAILY@06 PO Last administered on 06/05/18 06:12; Admin Dose 30 MG; Start 05/29/18 at 06:00 Docusate Sodium (Colace) 100 mg BID PO Last administered on 06/04/18 08:41; Admin Dose 100 MG; Start 05/29/18 at 09:00 Senna (Senokot) 1 tab HS PO Last administered on 06/01/18 21:08; Admin Dose 1 TAB; Start 05/29/18 at 21:00 Lactulose (Enulose) 20 gm DAILY PRN PO CONSTIPATION Last administered on 06/02/18 18:04; Admin Dose 20 GM; Start 05/28/18 at 22:30 Bisacodyl (Dulcolax Supp) 10 mg DAILY PRN [place] CONSTIPATION; Start 05/28/18 at 22:30 Acetaminophen (Tylenol Tab) 650 mg Q4H PRN PO MILD PAIN 1-3 Last administered on 06/04/18 13:48; Admin Dose 650 MG; Start 05/28/18 at 22:30 Gabapentin (Neurontin) 100 mg BID PO Last administered on 06/04/18 20:37; Admin Dose 100 MG; Start 05/29/18 at 21:00 Acetaminophen/ Hydrocodone Bitart ([place] (10/325)) 1 tab Q4H PRN PO MODERATE PAIN LEVEL 4-6 Last administered on 06/02/18 08:54; Admin Dose 1 TAB; Start 05/31/18 at 13:30 Baclofen (Lioresal) 10 mg TID PO Last administered on 06/04/18at 20:37; Admin Dose 10 MG; Start 05/31/18 at 21:00 Sodium Chloride (Deep Sea) 2 spray QID PRN NASAL STUFFYNESS Last administered on 06/03/18at 18:40; Admin Dose 2 SPRAY; Start 06/02/18 at 23:00 Assessment/Plan Additional Assessment/Plan rehab- 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 Good progress, continue program. CONT ASP COLLAR Acute pain syndrome-under better control Diabetes mellitus type 2. Hypertension.MAINTAIN SBP <150 Renal insufficiency. Hypothyroidism. Benign prostatic hypertrophy.NO EVIDENCE OF RETENTION History of right knee osteoarthritis with arthroscopy. History of right thumb transfer from big toe. WASHINGTON IRVING MD Jun 05, 2018 06:57
[2018-06-05 07:00] VITALS: BP 138/80; PULSE 66; RESP 16
[2018-06-05] MEDS: ACCU-CHEK XX SCH ×4 (07:05→21:14)
[2018-06-05] MEDS: INSULIN ASPART [NOVOLOG] 3 ML PEN SC SCH ×4 (07:35→20:57)
[2018-06-05] MEDS: DOCUSATE SODIUM 100 MG CAP PO SCH ×2 (09:00→20:45)
[2018-06-05] MEDS: POLYETHYLENE GLYCOL 17 GM PACKET PO SCH ×2 (09:00→20:46)
[2018-06-05] MEDS: metFORMIN 500 MG TAB PO SCH ×2 (09:55→17:35)
[2018-06-05] MEDS: GUAIFENESIN LA 600 MG TABSR PO SCH ×2 (09:57→20:45)
[2018-06-05] MEDS: BACLOFEN 10 MG TAB PO SCH ×3 (09:57→20:44)
[2018-06-05] MEDS: LOSARTAN 50 MG TAB PO SCH (09:58)
[2018-06-05] MEDS: GABAPENTIN 100 MG CAP PO SCH ×2 (09:59→20:45)
--- NOTE | 2018-06-05 11:11 | PN ---
Date/Time of Note Date/Time of Note DATE: 06/05/18 TIME: 11:10 Assessment/Plan VTE Prophylaxis Risk score (from Nsg)>0 risk: 4 SCD applied (from Ns): Yes Pharmacological prophylaxis: other Lines/Catheters Urinary Cath still in place: No Assessment/Plan Hospital Course medicine follow up SUBJECTIVE: The patient is stable. No events overnight. d/w Dr Johns doing well with rehab OBJECTIVE: HEENT: Head is normocephalic. NECK: The patient has neck brace. HEART: Regular rate. LUNGS: Show diminished breath sounds at the base. ABDOMEN: Soft, nontender to palpation without rebound or guarding. EXTREMITIES: Negative for clubbing, cyanosis, no edema. DERMATOLOGIC: No rashes. MUSCULOSKELETAL: No joint effusion. NEUROLOGIC: No change in exam. MEDICATIONS: Reviewed. LABORATORY DATA: Reviewed. ASSESSMENT AND PLAN: 1. Status post posterior cervical C3-C6 laminectomy with instrumented fusion. The patient is currently in neck brace, continue physical therapy and occupational therapy. Cough, improving, likely secondary to atelectasis. Continue incentive spirometry. 2. Hypertension. Continue current blood pressure regimen. 3. Diabetes. Continue current diabetic regimen. 4. Benign prostatic hypertrophy. Continue Flomax. 5. Dyslipidemia. Continue statin therapy. 6. Hypothyroidism. Continue Synthroid. 7. Constipation. Continue current bowel regimen. 8. Nonoliguric acute kidney injury on top of chronic kidney disease. Etiology is secondary to hemodynamics. Renal function is improved. Continue to monitor. 9. Mild hyponatremia. Continue to monitor serum sodium levels and limit free water intake. 10. Gastrointestinal and deep vein thrombosis prophylaxis. Result Diagram: 06/02/18 1342 06/01/18 0735 Results 24hrs Laboratory Tests Test 06/04/18 12:04 06/04/18 17:39 06/04/18 17:48 06/04/18 20:43 Bedside Glucose 111 116 115 139 Test 06/05/18 09:25 Bedside Glucose 117 Exam/Review of Systems Exam Vitals Vital Signs Date Temp Pulse Resp B/P (MAP) Pulse Ox O2 O2 Flow FiO2 Time Delivery Rate 06/05/18 2.5 10:49 06/05/18 98.6 66 16 138/80 96 Nasal 07:00 (99) Cannula Intake and Output 06/04/18 06/04/18 06/05/18 1515:00 23:00 07:00 IntakeIntake Total 1100 ml 850 ml OutputOutput Total 200 ml BalanceBalance 900 ml 850 ml Results Results 24hrs Laboratory Tests Test 06/04/18 12:04 06/04/18 17:39 06/04/18 17:48 06/04/18 20:43 Bedside Glucose 111 116 115 139 Test 06/05/18 09:25 Bedside Glucose 117 Medications Medication Current Medications Tramadol HCl (Ultram) 50 mg Q4 PRN PO PAIN Last administered on 06/02/18at 22:13; Admin Dose 50 MG; Start 05/28/18 at 21:00 Tamsulosin HCl (Flomax) 0.4 mg HS PO Last administered on 06/04/18at 20:37; Admi n Dose 0.4 MG; Start 05/28/18 at 21:00 Polyethylene Glycol (Miralax) 17 gm BID PO Last administered on 06/02/18at 09:08; Admin Dose 17 GM; Start 05/28/18 at 21:00 Insulin Aspart (Novolog Insulin Pen) NOVOLOG *MILD* ALGORITHM WITH MEALS BEDTIME SC Last administered on 06/03/18at 12:20; Admin Dose 1 UNIT; Start 05/28/18 at 22:00 Docusate Sodium (Colace) 100 mg BID PRN PO CONSTIPATION; Start 05/28/18 at 21:00 Guaifenesin (Mucinex) 600 mg BID PO Last administered on 06/05/18at 09:57; Admin Dose 600 MG; Start 05/28/18 at 21:00 Miscellaneous Information 1 ea NOTE XX ; Start 05/28/18 at 21:00 Glucose (Glutose) 15 gm Q15M PRN PO DECREASED GLUCOSE; Start 05/28/18 at 21:00 Glucose (Glutose) 22.5 gm Q15M PRN PO DECREASED GLUCOSE; Start 05/28/18 at 21:00 Dextrose (D50w Syringe) 25 ml Q15M PRN IV DECREASED GLUCOSE; Start 05/28/18 at 21:00 Dextrose (D50w Syringe) 50 ml Q15M PRN IV DECREASED GLUCOSE; Start 05/28/18 at 21:00 Glucagon (Glucagen) 1 mg Q15M PRN IM DECREASED GLUCOSE; Start 05/28/18 at 21:00 Glucose (Glutose) 15 gm Q15M PRN BUCCAL DECREASED GLUCOSE; Start 05/28/18 at 21:00 Albuterol/ Ipratropium (Duoneb) 3 ml Q6H RESP THERAPY PRN HHN SHORTNESS OF BREATH Last administered on 06/01/18 08:54; Admin Dose 3 ML; Start 05/28/18 at 21:00 Ondansetron HCl (Zofran Tab) 4 mg Q4 PRN PO NAUSEA AND/OR VOMITING Last administered on 05/31/18 09:30; Admin Dose 4 MG; Start 05/28/18 at 21:00 Atorvastatin Calcium (Lipitor) 10 mg HS PO Last administered on 06/04/18 20:37; Admin Dose 10 MG; Start 05/28/18 at 21:00 Cyclobenzaprine HCl (Flexeril) 5 mg TID PRN PO MUSCLE SPASMS Last administered on 05/31/18 13:03; Admin Dose 5 MG; Start 05/28/18 at 21:00 Folic Acid (Folic Acid) 1 mg DAILY PO Last administered on 06/04/18 08:41; Admin Dose 1 MG; Start 05/29/18 at 09:00 Levothyroxine Sodium (Synthroid) 125 mcg DAILY@06 PO Last administered on 06/05/18 06:12; Admin Dose 125 MCG; Start 05/29/18 at 06:00 Losartan Potassium (Cozaar) 50 mg DAILY PO Last administered on 06/05/18 09:58; Admin Dose 50 MG; Start 05/29/18 at 09:00 Magnesium Oxide (Mag-Ox 400) 400 mg HS PO Last administered on 06/04/18 20:37; Admin Dose 400 MG; Start 05/28/18 at 21:00 Metformin HCl (Glucophage) 1,000 mg BID WITH MEALS PO Last administered on 06/05/18 09:55; Admin Dose 1,000 MG; Start 05/29/18 at 07:35 Diagnostic Test (Pha) (Accu-Chek) 1 ea AC MEALS AND BEDTIME XX Last administered on 06/05/18 07:05; Admin Dose 1 EA; Start 05/28/18 at 21:00 Miscellaneous Information (Pending [facility] Order For Wound Care) This patient pena... PRN PRN XX WOUND CARE; Start 05/28/18 at 22:00 Cyanocobalamin (Vitamin B12 Inj) 1,000 mcg Q30D IM ; Start 06/14/18 at 22:30 Lansoprazole (Prevacid) 30 mg DAILY@06 PO Last administered on 06/05/18 06:12; Admin Dose 30 MG; Start 05/29/18 at 06:00 Docusate Sodium (Colace) 100 mg BID PO Last administered on 06/04/18 08:41; Admin Dose 100 MG; Start 05/29/18 at 09:00 Senna (Senokot) 1 tab HS PO Last administered on 06/01/18 21:08; Admin Dose 1 TAB; Start 05/29/18 at 21:00 Lactulose (Enulose) 20 gm DAILY PRN PO CONSTIPATION Last administered on 06/02/18 18:04; Admin Dose 20 GM; Start 05/28/18 at 22:30 Bisacodyl (Dulcolax Supp) 10 mg DAILY PRN [place] CONSTIPATION; Start 05/28/18 at 22: 30 Acetaminophen (Tylenol Tab) 650 mg Q4H PRN PO MILD PAIN 1-3 Last administered on 06/04/18 13:48; Admin Dose 650 MG; Start 05/28/18 at 22:30 Gabapentin (Neurontin) 100 mg BID PO Last administered on 06/05/18 09:59; Admin Dose 100 MG; Start 05/29/18 at 21:00 Acetaminophen/ Hydrocodone Bitart ([place] (10/325)) 1 tab Q4H PRN PO MODERATE PAIN LEVEL 4-6 Last administered on 06/02/18 08:54; Admin Dose 1 TAB; Start 05/31/18 at 13:30 Baclofen (Lioresal) 10 mg TID PO Last administered on 06/05/18 09:57; Admin Dose 10 MG; Start 05/31/18 at 21:00 Sodium Chloride (Deep Sea) 2 spray QID PRN NASAL STUFFYNESS Last administered on 06/03/18 18:40; Admin Dose 2 SPRAY; Start 06/02/18 at 23:00 VISHNU LANDERS DO Jun 05, 2018 11:11
[2018-06-05] MEDS: FOLIC ACID 1 MG TAB PO SCH (12:37)
[2018-06-05 14:00] VITALS: BP 108/64; PULSE 76; RESP 20
[2018-06-05 19:37] VITALS: BP 95/52; PULSE 72; RESP 18
[2018-06-05] MEDS: ACETAMINOPHEN 325 MG TAB PO PRN (20:44)
[2018-06-05] MEDS: MAGNESIUM OXIDE 400 MG TAB PO SCH (20:44)
[2018-06-05] MEDS: ATORVASTATIN 10 MG TAB PO SCH (20:44)
[2018-06-05] MEDS: TAMSULOSIN (SR) 0.4 MG CAP PO SCH (20:45)
[2018-06-05] MEDS: SENNA TAB PO SCH (20:46)
[2018-06-06 02:00] VITALS: BP 116/65; PULSE 67; RESP 18
[2018-06-06] MEDS: LEVOTHYROXINE 125 MCG TAB PO SCH (06:09)
[2018-06-06] MEDS: LANSOPRAZOLE 30 MG CAP PO SCH (06:11)
[2018-06-06 07:00] VITALS: BP 109/71; PULSE 67; RESP 16
[2018-06-06] MEDS: INSULIN ASPART [NOVOLOG] 3 ML PEN SC SCH ×4 (07:35→21:00)
[2018-06-06] MEDS: ACCU-CHEK XX SCH ×4 (08:02→21:00)
[2018-06-06] MEDS: metFORMIN 500 MG TAB PO SCH ×2 (08:05→17:56)
[2018-06-06] MEDS: DOCUSATE SODIUM 100 MG CAP PO SCH ×2 (09:00→21:00)
[2018-06-06] MEDS: LOSARTAN 50 MG TAB PO SCH (09:00)
[2018-06-06] MEDS: POLYETHYLENE GLYCOL 17 GM PACKET PO SCH ×2 (09:00→21:00)
[2018-06-06] MEDS: GUAIFENESIN LA 600 MG TABSR PO SCH ×2 (09:39→21:08)
[2018-06-06] MEDS: GABAPENTIN 100 MG CAP PO SCH ×2 (09:40→21:10)
[2018-06-06] MEDS: BACLOFEN 10 MG TAB PO SCH ×3 (09:42→21:10)
[2018-06-06] MEDS: FOLIC ACID 1 MG TAB PO SCH (09:42)
[2018-06-06 10:00] VITALS: BP 110/62; PULSE 78
[2018-06-06] MEDS: ALBUTEROL/IPRATROPIUM (NEB) 3 ML AMP HHN PRN (10:44)
--- NOTE | 2018-06-06 11:52 | PN ---
Date/Time of Note Date/Time of Note DATE: 06/06/18 TIME: 11:52 Assessment/Plan VTE Prophylaxis Risk score (from Nsg)>0 risk: 4 SCD applied (from Ns): Yes Pharmacological prophylaxis: other Lines/Catheters Urinary Cath still in place: No Assessment/Plan Hospital Course medicine follow up SUBJECTIVE: The patient is stable. No events overnight. d/w Dr Johns doing well with rehab OBJECTIVE: HEENT: Head is normocephalic. NECK: The patient has neck brace. HEART: Regular rate. LUNGS: Show diminished breath sounds at the base. ABDOMEN: Soft, nontender to palpation without rebound or guarding. EXTREMITIES: Negative for clubbing, cyanosis, no edema. DERMATOLOGIC: No rashes. MUSCULOSKELETAL: No joint effusion. NEUROLOGIC: No change in exam. MEDICATIONS: Reviewed. LABORATORY DATA: Reviewed. ASSESSMENT AND PLAN: 1. Status post posterior cervical C3-C6 laminectomy with instrumented fusion. The patient is currently in neck brace, continue physical therapy and occupational therapy. Cough, improving, likely secondary to atelectasis. Continue incentive spirometry. 2. Hypertension. Continue current blood pressure regimen. 3. Diabetes. Continue current diabetic regimen. 4. Benign prostatic hypertrophy. Continue Flomax. 5. Dyslipidemia. Continue statin therapy. 6. Hypothyroidism. Continue Synthroid. 7. Constipation. Continue current bowel regimen. 8. Nonoliguric acute kidney injury on top of chronic kidney disease. Etiology is secondary to hemodynamics. Renal function is improved. Continue to monitor. 9. Mild hyponatremia. Continue to monitor serum sodium levels and limit free water intake. 10. Gastrointestinal and deep vein thrombosis prophylaxis. Result Diagram: 06/02/18 1342 Results 24hrs Laboratory Tests Test 06/05/18 12:16 06/05/18 17:34 06/05/18 20:49 06/06/18 08:04 Bedside Glucose 175 97 144 122 Exam/Review of Systems Exam Vitals Vital Signs Date Temp Pulse Resp B/P (MAP) Pulse Ox O2 O2 Flow FiO2 Time Delivery Rate 06/06/18 96 2.0 10:44 06/06/18 70 18 Nasal 10:44 Cannula 06/06/18 97.6 109/71 07:00 (84) Intake and Output 06/05/18 06/05/18 06/06/18 1515:00 23:00 07:00 IntakeIntake Total 880 ml 750 ml OutputOutput Total 640 ml 400 ml BalanceBalance 240 ml 350 ml Results Results 24hrs Laboratory Tests Test 06/05/18 12:16 06/05/18 17:34 06/05/18 20:49 06/06/18 08:04 Bedside Glucose 175 97 144 122 Medications Medication Current Medications Tramadol HCl (Ultram) 50 mg Q4 PRN PO PAIN Last administered on 06/02/18at 22: 13; Admin Dose 50 MG; Start 05/28/18 at 21:00 Tamsulosin HCl (Flomax) 0.4 mg HS PO Last administered on 06/05/18at 20:45; Admin Dose 0.4 MG; Start 05/28/18 at 21:00 Polyethylene Glycol (Miralax) 17 gm BID PO Last administered on 06/02/18at 09:08; Admin Dose 17 GM; Start 05/28/18 at 21:00 Insulin Aspart (Novolog Insulin Pen) NOVOLOG *MILD* ALGORITHM WITH MEALS BEDTIME SC Last administered on 06/05/18at 12:19; Admin Dose 1 UNIT; Start 05/28/18 at 22:00 Docusate Sodium (Colace) 100 mg BID PRN PO CONSTIPATION; Start 05/28/18 at 21:00 Guaifenesin (Mucinex) 600 mg BID PO Last administered on 06/06/18at 09:39; Admin Dose 600 MG; Start 05/28/18 at 21:00 Miscellaneous Information 1 ea NOTE XX ; Start 05/28/18 at 21:00 Glucose (Glutose) 15 gm Q15M PRN PO DECREASED GLUCOSE; Start 05/28/18 at 21:00 Glucose (Glutose) 22.5 gm Q15M PRN PO DECREASED GLUCOSE; Start 05/28/18 at 21:00 Dextrose (D50w Syringe) 25 ml Q15M PRN IV DECREASED GLUCOSE; Start 05/28/18 at 21:00 Dextrose (D50w Syringe) 50 ml Q15M PRN IV DECREASED GLUCOSE; Start 05/28/18 at 21:00 Glucagon (Glucagen) 1 mg Q15M PRN IM DECREASED GLUCOSE; Start 05/28/18 at 21:00 Glucose (Glutose) 15 gm Q15M PRN BUCCAL DECREASED GLUCOSE; Start 05/28/18 at 21:00 Albuterol/ Ipratropium (Duoneb) 3 ml Q6H RESP THERAPY PRN HHN SHORTNESS OF BREATH Last administered on 06/06/18 10:44; Admin Dose 3 ML; Start 05/28/18 at 21:00 Ondansetron HCl (Zofran Tab) 4 mg Q4 PRN PO NAUSEA AND/OR VOMITING Last administered on 05/31/18 09:30; Admin Dose 4 MG; Start 05/28/18 at 21:00 Atorvastatin Calcium (Lipitor) 10 mg HS PO Last administered on 06/05/18 20:44; Admin Dose 10 MG; Start 05/28/18 at 21:00 Cyclobenzaprine HCl (Flexeril) 5 mg TID PRN PO MUSCLE SPASMS Last administered on 05/31/18 13:03; Admin Dose 5 MG; Start 05/28/18 at 21:00 Folic Acid (Folic Acid) 1 mg DAILY PO Last administered on 06/06/18 09:42; Admin Dose 1 MG; Start 05/29/18 at 09:00 Levothyroxine Sodium (Synthroid) 125 mcg DAILY@06 PO Last administered on 06/06/18 06:09; Admin Dose 125 MCG; Start 05/29/18 at 06:00 Losartan Potassium (Cozaar) 50 mg DAILY PO Last administered on 06/05/18 09:58; Admin Dose 50 MG; Start 05/29/18 at 09:00 Magnesium Oxide (Mag-Ox 400) 400 mg HS PO Last administered on 06/05/18 20:44; Admin Dose 400 MG; Start 05/28/18 at 21:00 Metformin HCl (Glucophage) 1,000 mg BID WITH MEALS PO Last administered on 06/06/18 08:05; Admin Dose 1,000 MG; Start 05/29/18 at 07:35 Diagnostic Test (Pha) (Accu-Chek) 1 ea AC MEALS AND BEDTIME XX Last administered on 06/06/18 08:02; Admin Dose 1 EA; Start 05/28/18 at 21:00 Miscellaneous Information (Pending [facility] Order For Wound Care) This patient pena... PRN PRN XX WOUND CARE; Start 05/28/18 at 22:00 Cyanocobalamin (Vitamin B12 Inj) 1,000 mcg Q30D IM ; Start 06/14/18 at 22:30 Lansoprazole (Prevacid) 30 mg DAILY@06 PO Last administered on 06/06/18 06:11; Admin Dose 30 MG; Start 05/29/18 at 06:00 Docusate Sodium (Colace) 100 mg BID PO Last administered on 06/04/18 08:41; Admin Dose 100 MG; Start 05/29/18 at 09:00 Senna (Senokot) 1 tab HS PO Last administered on 06/01/18 21:08; Admin Dose 1 TAB; Start 05/29/18 at 21:00 Lactulose (Enulose) 20 gm DAILY PRN PO CONSTIPATION Last administered on 06/02/18 18:04; Admin Dose 20 GM; Start 05/28/18 at 22:30 Bisacodyl (Dulcolax Supp) 10 mg DAILY PRN [place] CONSTIPATION; Start 05/28/18 at 22:30 Acetaminophen (Tylenol Tab) 650 mg Q4H PRN PO MILD PAIN 1-3 Last administered on 06/05/18 20:44; Admin Dose 650 MG; Start 05/28/18 at 22:30 Gabapentin (Neurontin) 100 mg BID PO Last administered on 06/06/18 09:40; Admin Dose 100 MG; Start 05/29/18 at 21:00 Acetaminophen/ Hydrocodone Bitart ([place] (10/325)) 1 tab Q4H PRN PO MODERATE PAIN LEVEL 4-6 Last administered on 06/02/18 08:54; Admin Dose 1 TAB; Start 05/31/18 at 13:30 Baclofen (Lioresal) 10 mg TID PO Last administered on 06/06/18 09:42; Admin Dose 10 MG; Start 05/31/18 at 21:00 Sodium Chloride (Deep Sea) 2 spray QID PRN NASAL STUFFYNESS Last administered on 06/03/18 18:40; Admin Dose 2 SPRAY; Start 06/02/18 at 23:00 VISHNU LANDERS DO Jun 06, 2018 11:52
[2018-06-06 14:00] VITALS: BP 82/54; PULSE 71; RESP 18
[2018-06-06] MEDS: SALINE 0.65% 45 ML NAS SPRAY NASAL PRN (18:55)
[2018-06-06 20:00] VITALS: BP 93/56; PULSE 77; RESP 18
[2018-06-06] MEDS: SENNA TAB PO SCH (21:00)
[2018-06-06] MEDS: ATORVASTATIN 10 MG TAB PO SCH (21:08)
[2018-06-06] MEDS: ACETAMINOPHEN 325 MG TAB PO PRN (21:09)
[2018-06-06] MEDS: MAGNESIUM OXIDE 400 MG TAB PO SCH (21:10)
[2018-06-06] MEDS: TAMSULOSIN (SR) 0.4 MG CAP PO SCH (21:12)
[2018-06-07] MEDS: LANSOPRAZOLE 30 MG CAP PO SCH (06:03)
[2018-06-07] MEDS: LEVOTHYROXINE 125 MCG TAB PO SCH (06:03)
[2018-06-07 07:30] VITALS: BP 100/63; PULSE 62; RESP 20
[2018-06-07] MEDS: INSULIN ASPART [NOVOLOG] 3 ML PEN SC SCH ×4 (07:35→21:00)
[2018-06-07] MEDS: ACCU-CHEK XX SCH ×4 (07:55→21:00)
[2018-06-07] MEDS: metFORMIN 500 MG TAB PO SCH ×2 (08:19→17:35)
[2018-06-07] MEDS: LOSARTAN 50 MG TAB PO SCH (08:35)
[2018-06-07] MEDS: DOCUSATE SODIUM 100 MG CAP PO SCH ×2 (08:35→21:00)
[2018-06-07] MEDS: BACLOFEN 10 MG TAB PO SCH ×3 (08:36→21:25)
[2018-06-07] MEDS: GUAIFENESIN LA 600 MG TABSR PO SCH ×2 (08:36→21:24)
[2018-06-07] MEDS: FOLIC ACID 1 MG TAB PO SCH (08:36)
[2018-06-07] MEDS: GABAPENTIN 100 MG CAP PO SCH ×2 (08:36→21:25)
[2018-06-07] MEDS: POLYETHYLENE GLYCOL 17 GM PACKET PO SCH ×2 (08:37→21:00)
--- NOTE | 2018-06-07 09:12 | PN ---
DATE: 06/07/2018 SUBJECTIVE: The patient is stable. OBJECTIVE: VITAL SIGNS: Blood pressure is 193/56, respirations 18, pulse 77, temperature 98.0. HEENT: Head is normocephalic. NECK: Supple. The patient has noted brace. HEART: Regular rate. LUNGS: Show diminished breath sounds at the base. ABDOMEN: Soft, nontender to palpation without rebound or guarding. EXTREMITIES: Negative for clubbing, cyanosis, no edema. DERMATOLOGIC: No rashes. MUSCULOSKELETAL: No joint effusion. NEUROLOGIC: No change in exam. MEDICATIONS: Reviewed. LABORATORY DATA: Reviewed. ASSESSMENT AND PLAN: 1. Status post posterior cervical C3-C6 laminectomy with instrumental fusion. The patient is curren tly in neck brace, continue physical therapy and occupational therapy. 2. Cough. Etiology is likely due to atelectasis. Continue incentive spirometry. 3. Hypertension. Continue current blood pressure regimen. 4. Diabetes. Continue current diabetic regimen. 5. Benign prostatic hypertrophy. Continue Flomax. 6. Dyslipidemia. Continue statin therapy. 7. Hypothyroidism. Continue Synthroid. 8. Constipation. Continue current bowel regimen. 9. Nonoliguric acute kidney injury on top of chronic kidney disease. Etiology is secondary to hemod ynamics. Renal function is improved. Continue to monitor. 10. Mild hypernatremia. Continue to monitor. 11. Gastrointestinal and deep vein thrombosis prophylaxis. Dictated By: TESSA SHRESTHA DO NR/NTS Conf#: [id number] DID#: [id number] CC: MARIANA IRVING MD; VISHNU LANDERS DO;*EndCC*
--- NOTE | 2018-06-07 13:05 | PN ---
Date/Time of Note Date/Time of Note DATE: 06/07/18 TIME: 13:04 Objective Vital Signs Date Temp Pulse Resp B/P (MAP) Pulse Ox O2 O2 Flow FiO2 Time Delivery Rate 06/07/18 98.3 62 20 100/63 97 Nasal 07:30 (75) Cannula 06/07/18 2.0 07:00 Intake and Output 06/06/18 06/06/18 06/07/18 1515:00 23:00 07:00 IntakeIntake Total 350 ml 1200 ml 120 ml OutputOutput Total 200 ml 500 ml 750 ml BalanceBalance 150 ml 700 ml -630 ml Exam INTERDISCIPLINARY TEAM CONFERENCE Physical Exam: Pulm-cta Abd-soft BOWEL- Cont BLADDER-Cont SKIN- improving OT- DRESSING- min/mod BATHING-min/mod TOILETING-min/mod PT- BED MOBILITY-min TRANSFERS-min AMBULATION-min 150 feet A/P- Interdisciplinary team conference held today. Please see interdisciplinary sheet. Working toward d.c. on 06/17 with post discharge follow up of physical therapy, occupational therapy. Results/Medications Results 24 hrs Laboratory Tests Test 06/06/18 17:49 06/06/18 20:29 06/07/18 07:41 06/07/18 12:01 Bedside Glucose 119 149 123 99 Medications Current Medications Tramadol HCl (Ultram) 50 mg Q4 PRN PO PAIN Last administered on 06/02/18at 22:13; Admin Dose 50 MG; Start 05/28/18 at 21:00 Tamsulosin HCl (Flomax) 0.4 mg HS PO Last administered on 06/06/18at 21:12; Admin Dose 0.4 MG; Start 05/28/18 at 21:00 Polyethylene Glycol (Miralax) 17 gm BID PO Last administered on 06/02/18 09:08; Admin Dose 17 GM; Start 05/28/18 at 21:00 Insulin Aspart (Novolog Insulin Pen) NOVOLOG *MILD* ALGORITHM WITH MEALS BEDTIME SC Last administered on 06/06/18at 12:22; Admin Dose 1 UNIT; Start 05/28/18 at 22:00 Docusate Sodium (Colace) 100 mg BID PRN PO CONSTIPATION; Start 05/28/18 at 21:00 Guaifenesin (Mucinex) 600 mg BID PO Last administered on 06/07/18at 08:36; Admin Dose 600 MG; Start 05/28/18 at 21:00 Miscellaneous Information 1 ea NOTE XX ; Start 05/28/18 at 21:00 Glucose (Glutose) 15 gm Q15M PRN PO DECREASED GLUCOSE; Start 05/28/18 at 21:00 Glucose (Glutose) 22.5 gm Q15M PRN PO DECREASED GLUCOSE; Start 05/28/18 at 21:00 Dextrose (D50w Syringe) 25 ml Q15M PRN IV DECREASED GLUCOSE; Start 05/28/18 at 21:00 Dextrose (D50w Syringe) 50 ml Q15M PRN IV DECREASED GLUCOSE; Start 05/28/18 at 21:00 Glucagon (Glucagen) 1 mg Q15M PRN IM DECREASED GLUCOSE; Start 05/28/18 at 21:00 Glucose (Glutose) 15 gm Q15M PRN BUCCAL DECREASED GLUCOSE; Start 05/28/18 at 21:00 Albuterol/ Ipratropium (Duoneb) 3 ml Q6H RESP THERAPY PRN HHN SHORTNESS OF BREATH Last administered on 06/06/18at 10:44; Admin Dose 3 ML; Start 05/28/18 at 21:00 Ondansetron HCl (Zofran Tab) 4 mg Q4 PRN PO NAUSEA AND/OR VOMITING Last administered on 05/31/18 09:30; Admin Dose 4 MG; Start 05/28/18 at 21:00 Atorvastatin Calcium (Lipitor) 10 mg HS PO Last administered on 06/06/18 21:08; Admin Dose 10 MG; Start 05/28/18 at 21:00 Cyclobenzaprine HCl (Flexeril) 5 mg TID PRN PO MUSCLE SPASMS Last administered on 05/31/18at 13:03; Admin Dose 5 MG; Start 05/28/18 at 21:00 Folic Acid (Folic Acid) 1 mg DAILY PO Last administered on 06/07/18 08:36; Admin Dose 1 MG; Start 05/29/18 at 09:00 Levothyroxine Sodium (Synthroid) 125 mcg DAILY@06 PO Last administered on 06/07/18 06:03; Admin Dose 125 MCG; Start 05/29/18 at 06:00 Losartan Potassium (Cozaar) 50 mg DAILY PO Last administered on 06/05/18at 09:58; Admin Dose 50 MG; Start 05/29/18 at 09:00 Magnesium Oxide (Mag-Ox 400) 400 mg HS PO Last administered on 06/06/18 21:10; Admin Dose 400 MG; Start 05/28/18 at 21:00 Metformin HCl (Glucophage) 1,000 mg BID WITH MEALS PO Last administered on 06/07/18 08:19; Admin Dose 1,000 MG; Start 05/29/18 at 07:35 Diagnostic Test (Pha) (Accu-Chek) 1 ea AC MEALS AND BEDTIME XX Last administered on 06/07/18 11:30; Admin Dose 1 EA; Start 05/28/18 at 21:00 Miscellaneous Information (Pending [facility] Order For Wound Care) This patient pena... PRN PRN XX WOUND CARE; Start 05/28/18 at 22:00 Cyanocobalamin (Vitamin B12 Inj) 1,000 mcg Q30D IM ; Start 06/14/18 at 22:30 Lansoprazole (Prevacid) 30 mg DAILY@06 PO Last administered on 06/07/18 06:03; Admin Dose 30 MG; Start 05/29/18 at 06:00 Docusate Sodium (Colace) 100 mg BID PO Last administered on 06/04/18 08:41; Admin Dose 100 MG; Start 05/29/18 at 09:00 Senna (Senokot) 1 tab HS PO Last administered on 06/01/18 21:08; Admin Dose 1 TAB; Start 05/29/18 at 21:00 Lactulose (Enulose) 20 gm DAILY PRN PO CONSTIPATION Last administered on 06/02/18 18:04; Admin Dose 20 GM; Start 05/28/18 at 22:30 Bisacodyl (Dulcolax Supp) 10 mg DAILY PRN [place] CONSTIPATION; Start 05/28/18 at 22:30 Acetaminophen (Tylenol Tab) 650 mg Q4H PRN PO MILD PAIN 1-3 Last administered on 06/06/18 21:09; Admin Dose 650 MG; Start 05/28/18 at 22:30 Gabapentin (Neurontin) 100 mg BID PO Last administered on 06/07/18 08:36; Admin Dose 100 MG; Start 05/29/18 at 21:00 Acetaminophen/ Hydrocodone Bitart ([place] (10/325)) 1 tab Q4H PRN PO MODERATE PAIN LEVEL 4-6 Last administered on 06/02/18 08:54; Admin Dose 1 TAB; Start 05/31/18 at 13:30 Baclofen (Lioresal) 10 mg TID PO Last administered on 06/07/18at 12:57; Admin Dose 10 MG; Start 05/31/18 at 21:00 Sodium Chloride (Deep Sea) 2 spray QID PRN NASAL STUFFYNESS Last administered on 06/06/18at 18:55; Admin Dose 2 SPRAY; Start 06/02/18 at 23:00 MARIANA IRVING MD Jun 07, 2018 13:05
[2018-06-07 14:00] VITALS: BP 104/62; PULSE 69; RESP 20
[2018-06-07 20:00] VITALS: BP 106/67; PULSE 81; RESP 18
[2018-06-07] MEDS: SENNA TAB PO SCH (21:00)
[2018-06-07] MEDS: TAMSULOSIN (SR) 0.4 MG CAP PO SCH (21:24)
[2018-06-07] MEDS: MAGNESIUM OXIDE 400 MG TAB PO SCH (21:24)
[2018-06-07] MEDS: ATORVASTATIN 10 MG TAB PO SCH (21:24)
[2018-06-07] MEDS: ACETAMINOPHEN 325 MG TAB PO PRN (21:24)
[2018-06-08 02:23] VITALS: BP 116/63; PULSE 76; RESP 18
[2018-06-08] MEDS: LEVOTHYROXINE 125 MCG TAB PO SCH (05:54)
[2018-06-08] MEDS: LANSOPRAZOLE 30 MG CAP PO SCH (05:54)
[2018-06-08 07:00] VITALS: BP 127/78; PULSE 69; RESP 18
[2018-06-08] MEDS: INSULIN ASPART [NOVOLOG] 3 ML PEN SC SCH ×4 (07:35→21:00)
[2018-06-08] MEDS: metFORMIN 500 MG TAB PO SCH ×2 (07:49→17:47)
[2018-06-08] MEDS: ACCU-CHEK XX SCH ×4 (07:49→21:00)
[2018-06-08] MEDS: SALINE 0.65% 45 ML NAS SPRAY NASAL PRN (08:17)
[2018-06-08] MEDS: GUAIFENESIN LA 600 MG TABSR PO SCH ×2 (08:41→20:35)
[2018-06-08] MEDS: GABAPENTIN 100 MG CAP PO SCH ×2 (08:42→20:35)
[2018-06-08] MEDS: BACLOFEN 10 MG TAB PO SCH ×3 (08:42→20:34)
[2018-06-08] MEDS: FOLIC ACID 1 MG TAB PO SCH (08:42)
[2018-06-08] MEDS: LOSARTAN 50 MG TAB PO SCH (08:43)
[2018-06-08] MEDS: DOCUSATE SODIUM 100 MG CAP PO SCH ×2 (08:45→20:34)
[2018-06-08] MEDS: POLYETHYLENE GLYCOL 17 GM PACKET PO SCH ×2 (08:45→21:00)
--- NOTE | 2018-06-08 09:03 | PN ---
DATE: 06/08/2018 SUBJECTIVE: The patient is stable, no events overnight. OBJECTIVE: VITAL SIGNS: Blood pressure is 116/63, respirations 18, pulse 76, temperature 98.0. HEENT: Head is normocephalic. NECK: Shows a brace. HEART: Regular rate. LUNGS: Show diminished breath sounds at the base. ABDOMEN: Soft, nontender to palpation without rebound or guarding. EXTREMITIES: Negative for clubbing, cyanosis, no edema. DERMATOLOGIC: No rashes. MUSCULOSKELETAL: No joint effusion. NEUROLOGIC: No change in exam. MEDICATIONS: Reviewed. LABORATORY DATA: From 06/08/2018 was reviewed. ASSESSMENT AND PLAN: 1. Status post posterior cervical C3-C6 laminectomy with instrumented fusion. The patient is curren tly in neck brace. Continue physical therapy and occupational therapy. 2. Cough secondary to atelectasis resolving. Continue incentive spirometry. 3. Hypertension. Blood pressure well controlled. Continue current blood pressure regimen with note d parameters. 4. Diabetes. Continue current insulin regimen. 5. Chronic kidney disease likely stage III. The patient's creatinine has been fluctuating but overa ll stable. Continue to monitor. 6. Benign prostatic hypertrophy. Continue Flomax. 7. Dyslipidemia. Continue statin therapy. 8. Hypothyroidism. Continue Synthroid. 9. Constipation. Continue current bowel regimen. 10. Gastrointestinal and deep vein thrombosis prophylaxis. Dictated By: TESSA SHRESTHA DO NR/NTS Conf#: [id number] DID#: [id number] CC: VISHNU LANDERS DO; MARIANA IRVING MD;*End*
--- NOTE | 2018-06-08 13:14 | PN ---
Date/Time of Note Date/Time of Note DATE: 06/08/18 TIME: 13:14 Subjective Still with pain, but improving Objective Vital Signs Date Temp Pulse Resp B/P (MAP) Pulse Ox O2 O2 Flow FiO2 Time Delivery Rate 06/08/18 98.1 69 18 127/78 93 Room Air 07:00 (94) 06/08/18 2.0 06:15 Intake and Output 06/07/18 06/07/18 06/08/18 1515:00 23:00 07:00 IntakeIntake Total 840 ml 120 ml OutputOutput Total 420 ml 250 ml BalanceBalance 420 ml -130 ml Exam pulm-cta min/mod Results/Medications Result Diagram: 06/08/18 0627 06/08/18 0625 Results 24 hrs Laboratory Tests Test 06/07/18 17:03 06/07/18 21:18 06/08/18 06:25 06/08/18 06:27 Bedside Glucose 111 122 Sodium Level 139 Potassium Level 4.2 Chloride Level 104 Carbon Dioxide Level 27 Anion Gap 8 Blood Urea Nitrogen 26 H Creatinine 1.36 H Est Glomerular Filtrat Rate mL/min Glucose Level 104 Calcium Level 9.0 Phosphorus Level 4.1 Magnesium Level 2.0 White Blood Count 8.9 Red Blood Count 3.85 L Hemoglobin 12.2 L Hematocrit 38.3 L Mean Corpuscular 99.5 Volume Mean Corpuscular 31.7 Hemoglobin Mean Corpuscular 31.9 L Hemoglobin Concent Red Cell 13.2 Distribution Width Platelet Count 428 #H Mean Platelet Volume 9.8 Immature 5.300 H Granulocytes % Neutrophils % 63.8 Lymphocytes % 19.5 Monocytes % 7.8 Eosinophils % 2.6 Basophils % 1.0 Nucleated Red Blood 0.0 Cells % Immature 0.470 H Granulocytes # Neutrophils # 5.7 Lymphocytes # 1.7 Monocytes # 0.7 Eosinophils # 0.2 Basophils # 0.1 Nucleated Red Blood 0.0 Cells # Test 06/08/18 07:48 06/08/18 12:02 Bedside Glucose 110 101 Medications Current Medications Tramadol HCl (Ultram) 50 mg Q4 PRN PO PAIN Last administered on 06/02/18at 22:13; Admin Dose 50 MG; Start 05/28/18 at 21:00 Tamsulosin HCl (Flomax) 0.4 mg HS PO Last administered on 06/07/18at 21:24; Admin Dose 0.4 MG; Start 05/28/18 at 21:00 Polyethylene Glycol (Miralax) 17 gm BID PO Last administered on 06/02/18at 09:08; Admin Dose 17 GM; Start 05/28/18 at 21:00 Insulin Aspart (Novolog Insulin Pen) NOVOLOG *MILD* ALGORITHM WITH MEALS BEDTIME SC Last administered on 06/06/18at 12:22; Admin Dose 1 UNIT; Start 05/28/18 at 22:00 Docusate Sodium (Colace) 100 mg BID PRN PO CONSTIPATION; Start 05/28/18 at 21:00 Guaifenesin (Mucinex) 600 mg BID PO Last administered on 06/08/18 08:41; Admin Dose 600 MG; Start 05/28/18 at 21:00 Miscellaneous Information 1 ea NOTE XX ; Start 05/28/18 at 21:00 Glucose (Glutose) 15 gm Q15M PRN PO DECREASED GLUCOSE; Start 05/28/18 at 21:00 Glucose (Glutose) 22.5 gm Q15M PRN PO DECREASED GLUCOSE; Start 05/28/18 at 21:00 Dextrose (D50w Syringe) 25 ml Q15M PRN IV DECREASED GLUCOSE; Start 05/28/18 at 21:00 Dextrose (D50w Syringe) 50 ml Q15M PRN IV DECREASED GLUCOSE; Start 05/28/18 at 21:00 Glucagon (Glucagen) 1 mg Q15M PRN IM DECREASED GLUCOSE; Start 05/28/18 at 21:00 Glucose (Glutose) 15 gm Q15M PRN BUCCAL DECREASED GLUCOSE; Start 05/28/18 at 21:00 Albuterol/ Ipratropium (Duoneb) 3 ml Q6H RESP THERAPY PRN HHN SHORTNESS OF BREATH Last administered on 06/06/18at 10:44; Admin Dose 3 ML; Start 05/28/18 at 21:00 Ondansetron HCl (Zofran Tab) 4 mg Q4 PRN PO NAUSEA AND/OR VOMITING Last administered on 05/31/18at 09:30; Admin Dose 4 MG; Start 05/28/18 at 21:00 Atorvastatin Calcium (Lipitor) 10 mg HS PO Last administered on 06/07/18at 21:24; Admin Dose 10 MG; Start 05/28/18 at 21:00 Cyclobenzaprine HCl (Flexeril) 5 mg TID PRN PO MUSCLE SPASMS Last administered on 05/31/18 13:03; Admin Dose 5 MG; Start 05/28/18 at 21:00 Folic Acid (Folic Acid) 1 mg DAILY PO Last administered on 06/08/18 08:42; Admin Dose 1 MG; Start 05/29/18 at 09:00 Levothyroxine Sodium (Synthroid) 125 mcg DAILY@06 PO Last administered on 06/08/18 05:54; Admin Dose 125 MCG; Start 05/29/18 at 06:00 Losartan Potassium (Cozaar) 50 mg DAILY PO Last administered on 06/08/18 08:43; Admin Dose 50 MG; Start 05/29/18 at 09:00 Magnesium Oxide (Mag-Ox 400) 400 mg HS PO Last administered on 06/07/18 21:24; Admin Dose 400 MG; Start 05/28/18 at 21:00 Metformin HCl (Glucophage) 1,000 mg BID WITH MEALS PO Last administered on 06/08/18 07:49; Admin Dose 1,000 MG; Start 05/29/18 at 07:35 Diagnostic Test (Pha) (Accu-Chek) 1 ea AC MEALS AND BEDTIME XX Last administered on 06/08/18 12:05; Admin Dose 1 EA; Start 05/28/18 at 21:00 Miscellaneous Information (Pending [facility] Order For Wound Care) This patient pena... PRN PRN XX WOUND CARE; Start 05/28/18 at 22:00 Cyanocobalamin (Vitamin B12 Inj) 1,000 mcg Q30D IM ; Start 06/14/18 at 22:30 Lansoprazole (Prevacid) 30 mg DAILY@06 PO Last administered on 06/08/18 05:54; Admin Dose 30 MG; Start 05/29/18 at 06:00 Docusate Sodium (Colace) 100 mg BID PO Last administered on 06/04/18 08:41; Admin Dose 100 MG; Start 05/29/18 at 09:00 Senna (Senokot) 1 tab HS PO Last administered on 06/01/18 21:08; Admin Dose 1 TAB; Start 05/29/18 at 21:00 Lactulose (Enulose) 20 gm DAILY PRN PO CONSTIPATION Last administered on 06/02/18 18:04; Admin Dose 20 GM; Start 05/28/18 at 22:30 Bisacodyl (Dulcolax Supp) 10 mg DAILY PRN [place] CONSTIPATION; Start 05/28/18 at 22:30 Acetaminophen (Tylenol Tab) 650 mg Q4H PRN PO MILD PAIN 1-3 Last administered on 06/07/18 21:24; Admin Dose 650 MG; Start 05/28/18 at 22:30 Gabapentin (Neurontin) 100 mg BID PO Last administered on 06/08/18 08:42; Admin Dose 100 MG; Start 05/29/18 at 21:00 Acetaminophen/ Hydrocodone Bitart ([place] (10/325)) 1 tab Q4H PRN PO MODERATE PAIN LEVEL 4-6 Last administered on 06/02/18 08:54; Admin Dose 1 TAB; Start 05/31/18 at 13:30 Baclofen (Lioresal) 10 mg TID PO Last administered on 06/08/18 08:42; Admin Dose 10 MG; Start 05/31/18 at 21:00 Sodium Chloride (Deep Sea) 2 spray QID PRN NASAL STUFFYNESS Last administered on 06/08/18 08:17; Admin Dose 2 SPRAY; Start 06/02/18 at 23:00 Assessment/Plan Additional Assessment/Plan rehab- Nontraumatic cervical spinal cord injury with cervical spinal stenosis and spondylitis, status post posterior C3 through C6 laminectomy and fusion. Good progress, continue plan Acute pain syndrome-under better control Diabetes mellitus type 2. Hypertension. Renal insufficiency. Hypothyroidism. Benign prostatic hypertrophy. History of right knee osteoarthritis with arthroscopy. History of right thumb transfer from big toe. MARIANA IRVING MD Jun 08, 2018 13:14
[2018-06-08 13:16] VITALS: BP_SYST 120; BP_SYST 86; BP_DIAS 64; BP_DIAS 77; PULSE 74
[2018-06-08 14:00] VITALS: BP 101/57; PULSE 80; RESP 18
[2018-06-08 20:17] VITALS: BP 100/58; PULSE 78; RESP 18
[2018-06-08] MEDS: TAMSULOSIN (SR) 0.4 MG CAP PO SCH (20:34)
[2018-06-08] MEDS: SENNA TAB PO SCH (20:34)
[2018-06-08] MEDS: MAGNESIUM OXIDE 400 MG TAB PO SCH (20:35)
[2018-06-08] MEDS: ATORVASTATIN 10 MG TAB PO SCH (20:35)
[2018-06-08] MEDS: ACETAMINOPHEN 325 MG TAB PO PRN (20:35)
[2018-06-09 02:00] VITALS: BP 110/68; PULSE 64; RESP 18
[2018-06-09] MEDS: LANSOPRAZOLE 30 MG CAP PO SCH (06:05)
[2018-06-09] MEDS: LEVOTHYROXINE 125 MCG TAB PO SCH (06:05)
[2018-06-09 07:00] VITALS: BP 118/78; PULSE 63; RESP 18
[2018-06-09] MEDS: INSULIN ASPART [NOVOLOG] 3 ML PEN SC SCH ×4 (07:35→21:00)
[2018-06-09] MEDS: ACCU-CHEK XX SCH ×4 (07:59→21:00)
[2018-06-09] MEDS: metFORMIN 500 MG TAB PO SCH ×2 (08:02→17:46)
[2018-06-09] MEDS: POLYETHYLENE GLYCOL 17 GM PACKET PO SCH ×3 (09:00→21:30)
[2018-06-09] MEDS: GABAPENTIN 100 MG CAP PO SCH ×2 (09:00→21:33)
--- NOTE | 2018-06-09 09:20 | PN ---
DATE: 06/09/2018 SUBJECTIVE: The patient is stable, no events overnight. OBJECTIVE: VITAL SIGNS: Blood pressure is 100/58, respirations 18, pulse 78, temperature 98.4. HEENT: Head is normocephalic. NECK: Supple. HEART: Regular rate. LUNGS: Show diminished breath sounds at the base. ABDOMEN: Soft, nontender to palpation. No rebound or guarding. EXTREMITIES: Negative for clubbing, cyanosis, no edema. DERMATOLOGIC: No rashes. MUSCULOSKELETAL: No joint effusion. NEUROLOGIC: No change in exam. MEDICATIONS: Reviewed. LABORATORY DATA: Reviewed. ASSESSMENT AND PLAN: 1. Status post posterior cervical C3-C6 laminectomy with instrumented fusion. The patient is curren tly in neck brace, continue physical therapy and occupational therapy. 2. Cough secondary to atelectasis, resolved. 3. Hypertension. Continue current blood pressure regimen. 4. Diabetes. Continue current insulin regimen. 5. Chronic kidney disease, stage III. The patient's creatinine has been fluctuating but overall sta ble. Continue to monitor. 6. Benign prostatic hypertrophy. Continue Flomax. 7. Dyslipidemia. Continue statin therapy. 8. Hypothyroidism. Continue Synthroid. 9. Constipation. Continue current bowel regimen. 10. Gastrointestinal and deep vein thrombosis prophylaxis. Dictated By: TESSA SHRESTHA DO NR/NTS Conf#: [id number] DID#: [id number] CC: VISNHU LANDERS DO; MARIANA IRVING MD;*EndCC*
[2018-06-09] MEDS: DOCUSATE SODIUM 100 MG CAP PO SCH ×2 (09:54→21:32)
[2018-06-09] MEDS: FOLIC ACID 1 MG TAB PO SCH (09:54)
[2018-06-09] MEDS: GUAIFENESIN LA 600 MG TABSR PO SCH ×2 (09:55→21:31)
[2018-06-09] MEDS: BACLOFEN 10 MG TAB PO SCH ×3 (09:55→21:31)
[2018-06-09] MEDS: LOSARTAN 50 MG TAB PO SCH (10:08)
--- NOTE | 2018-06-09 13:13 | PN ---
Date/Time of Note Date/Time of Note DATE: 06/09/18 TIME: 13:12 Subjective No new complaints Objective Vital Signs Date Temp Pulse Resp B/P (MAP) Pulse Ox O2 O2 Flow FiO2 Time Delivery Rate 06/09/18 98.1 63 18 118/78 92 Room Air 07:00 (91) 06/08/18 2.0 20:10 Intake and Output 06/08/18 06/08/18 06/09/18 1414:59 22:59 06:59 IntakeIntake Total 1200 ml 240 ml OutputOutput Total 700 ml 1000 ml 500 ml BalanceBalance -700 ml 200 ml -260 ml Exam pulm-cta min ambulation Results/Medications Result Diagram: 06/08/1862606/08/18 06 Results 24 hrs Laboratory Tests Test 06/08/18 17:34 06/08/18 20:32 06/09/18 07:58 06/09/18 12:09 Bedside Glucose 104 148 109 97 Medications Current Medications Tramadol HCl (Ultram) 50 mg Q4 PRN PO PAIN Last administered on 06/02/18at 22:13; Admin Dose 50 MG; Start 05/28/18 at 21:00 Tamsulosin HCl (Flomax) 0.4 mg HS PO Last administered on 06/08/18at 20:34; Admin Dose 0.4 MG; Start 05/28/18 at 21:00 Polyethylene Glycol (Miralax) 17 gm BID PO Last administered on 06/02/18at 09:08; Admin Dose 17 GM; Start 05/28/18 at 21:00 Insulin Aspart (Novolog Insulin Pen) NOVOLOG *MILD* ALGORITHM WITH MEALS BEDTIME SC Last administered on 06/06/18at 12:22; Admin Dose 1 UNIT; Start 05/28/18 at 22:00 Docusate Sodium (Colace) 100 mg BID PRN PO CONSTIPATION; Start 05/28/18 at 21:00 Guaifenesin (Mucinex) 600 mg BID PO Last administered on 06/09/18at 09:55; Admin Dose 600 MG; Start 05/28/18 at 21:00 Miscellaneous Information 1 ea NOTE XX ; Start 05/28/18 at 21:00 Glucose (Glutose) 15 gm Q15M PRN PO DECREASED GLUCOSE; Start 05/28/18 at 21:00 Glucose (Glutose) 22.5 gm Q15M PRN PO DECREASED GLUCOSE; Start 05/28/18 at 21:00 Dextrose (D50w Syringe) 25 ml Q15M PRN IV DECREASED GLUCOSE; Start 05/28/18 at 21:00 Dextrose (D50w Syringe) 50 ml Q15M PRN IV DECREASED GLUCOSE; Start 05/28/18 at 21:00 Glucagon (Glucagen) 1 mg Q15M PRN IM DECREASED GLUCOSE; Start 05/28/18 at 21:00 Glucose (Glutose) 15 gm Q15M PRN BUCCAL DECREASED GLUCOSE; Start 05/28/18 at 21:00 Albuterol/ Ipratropium (Duoneb) 3 ml Q6H RESP THERAPY PRN HHN SHORTNESS OF BREATH Last administered on 06/06/18 10:44; Admin Dose 3 ML; Start 05/28/18 at 21:00 Ondansetron HCl (Zofran Tab) 4 mg Q4 PRN PO NAUSEA AND/OR VOMITING Last administered on 05/31/18 09:30; Admin Dose 4 MG; Start 05/28/18 at 21:00 Atorvastatin Calcium (Lipitor) 10 mg HS PO Last administered on 06/08/18 20:35; Admin Dose 10 MG; Start 05/28/18 at 21:00 Cyclobenzaprine HCl (Flexeril) 5 mg TID PRN PO MUSCLE SPASMS Last administered on 05/31/18 13:03; Admin Dose 5 MG; Start 05/28/18 at 21:00 Folic Acid (Folic Acid) 1 mg DAILY PO Last administered on 06/09/18 09:54; Admin Dose 1 MG; Start 05/29/18 at 09:00 Levothyroxine Sodium (Synthroid) 125 mcg DAILY@06 PO Last administered on 06/09/18 06:05; Admin Dose 125 MCG; Start 05/29/18 at 06:00 Losartan Potassium (Cozaar) 50 mg DAILY PO Last administered on 06/09/18 10:08; Admin Dose 50 MG; Start 05/29/18 at 09:00 Magnesium Oxide (Mag-Ox 400) 400 mg HS PO Last administered on 06/08/18 20:35; Admin Dose 400 MG; Start 05/28/18 at 21:00 Metformin HCl (Glucophage) 1,000 mg BID WITH MEALS PO Last administered on 06/09/18 08:02; Admin Dose 1,000 MG; Start 05/29/18 at 07:35 Diagnostic Test (Pha) (Accu-Chek) 1 ea AC MEALS AND BEDTIME XX Last administered on 06/09/18 12:09; Admin Dose 1 EA; Start 05/28/18 at 21:00 Miscellaneous Information (Pending Santyl Order For Wound Care) This patient pena... PRN PRN XX WOUND CARE; Start 05/28/18 at 22:00 Cyanocobalamin (Vitamin B12 Inj) 1,000 mcg Q30D IM ; Start 06/14/18 at 22:30 Lansoprazole (Prevacid) 30 mg DAILY@06 PO Last administered on 06/09/18 06:05; Admin Dose 30 MG; Start 05/29/18 at 06:00 Docusate Sodium (Colace) 100 mg BID PO Last administered on 06/09/18 09:54; Admin Dose 100 MG; Start 05/29/18 at 09:00 Senna (Senokot) 1 tab HS PO Last administered on 06/08/18 20:34; Admin Dose 1 TAB; Start 05/29/18 at 21:00 Lactulose (Enulose) 20 gm DAILY PRN PO CONSTIPATION Last administered on 06/02/18 18:04; Admin Dose 20 GM; Start 05/28/18 at 22:30 Bisacodyl (Dulcolax Supp) 10 mg DAILY PRN [place] CONSTIPATION; Start 05/28/18 at 22:30 Acetaminophen (Tylenol Tab) 650 mg Q4H PRN PO MILD PAIN 1-3 Last administered on 06/08/18 20:35; Admin Dose 650 MG; Start 05/28/18 at 22:30 Gabapentin (Neurontin) 100 mg BID PO Last administered on 06/09/18 09:00; Admin Dose 100 MG; Start 05/29/18 at 21:00 Acetaminophen/ Hydrocodone Bitart ([place] (10/325)) 1 tab Q4H PRN PO MODERATE PAIN LEVEL 4-6 Last administered on 06/02/18 08:54; Admin Dose 1 TAB; Start 05/31/18 at 13:30 Baclofen (Lioresal) 10 mg TID PO Last administered on 06/09/18 12:28; Admin Dose 10 MG; Start 05/31/18 at 21:00 Sodium Chloride (Deep Sea) 2 spray QID PRN NASAL STUFFYNESS Last administered on 06/08/18at 08:17; Admin Dose 2 SPRAY; Start 06/02/18 at 23:00 Assessment/Plan Additional Assessment/Plan rehab- 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 continue interdisciplinary rehab Acute pain syndrome-under better control Diabetes mellitus type 2. Hypertension. Renal insufficiency. Hypothyroidism. Benign prostatic hypertrophy. History of right knee osteoarthritis with arthroscopy. History of right thumb transfer from big toe. MARIANA IRVING MD Jun 09, 2018 13:12
[2018-06-09 14:00] VITALS: BP 90/60; PULSE 72; RESP 18
[2018-06-09 19:45] VITALS: BP 112/69; PULSE 79; RESP 18
[2018-06-09] MEDS: ATORVASTATIN 10 MG TAB PO SCH (21:31)
[2018-06-09] MEDS: ACETAMINOPHEN 325 MG TAB PO PRN (21:31)
[2018-06-09] MEDS: MAGNESIUM OXIDE 400 MG TAB PO SCH (21:31)
[2018-06-09] MEDS: SENNA TAB PO SCH (21:32)
[2018-06-09] MEDS: TAMSULOSIN (SR) 0.4 MG CAP PO SCH (21:33)
--- NOTE | 2018-06-09 21:43 | PN ---
DATE: 06/09/2018 PSYCHOLOGY -- INDIVIDUAL SESSION -- [id number] This is a followup on a patient who was seen last week. The patient's mood has gotten substantially better. The patient reports his pain has diminished and that he is feeling like he has made a good deal of progress in the last week. The patient is preparing eventually be discharged and be able to be functioning at home. The patient does want to work on whatever he can to increase his level of functioning as well as his mood. I worked with the patient to continue to encourage him to work on both mood and physical condition. Dictated By: DE KEARNS PHD XANDER/NAOMI Conf#: [id number] DID#: [id number] MTDMert
[2018-06-10 02:13] VITALS: BP 139/79; PULSE 72; RESP 18
[2018-06-10] MEDS: LEVOTHYROXINE 125 MCG TAB PO SCH (05:59)
[2018-06-10] MEDS: LANSOPRAZOLE 30 MG CAP PO SCH (05:59)
[2018-06-10 07:00] VITALS: BP 122/73; PULSE 67; RESP 18
[2018-06-10] MEDS: INSULIN ASPART [NOVOLOG] 3 ML PEN SC SCH ×4 (07:35→20:11)
[2018-06-10] MEDS: ACCU-CHEK XX SCH ×4 (08:00→20:11)
[2018-06-10] MEDS: metFORMIN 500 MG TAB PO SCH ×2 (08:03→17:33)
--- NOTE | 2018-06-10 09:11 | PN ---
DATE: 06/10/2018 SUBJECTIVE: The patient is stable, no events noted. OBJECTIVE: VITAL SIGNS: Blood pressure is 122/73, respiration 18, pulse 67, temperature 97.9. HEENT: Head is normocephalic. NECK: Supple. HEART: Regular rate. LUNGS: Show diminished breath sounds at the base. ABDOMEN: Soft, nontender to palpation without rebound or guarding. EXTREMITIES: Negative for clubbing, cyanosis, no edema. DERMATOLOGIC: No rashes. MUSCULOSKELETAL: No joint effusions. NEUROLOGIC: No change in exam. MEDICATIONS: Reviewed. LABORATORY DATA: Has been reviewed. ASSESSMENT AND PLAN: 1. Status post posterior cervical C3-C6 laminectomy with instrumented fusion. The patient is curren tly in neck brace, continue physical therapy and occupational therapy. 2. Orthostatic hypotension. Etiology may be due to hemodynamics versus autonomic dysfunction. Will continue to monitor. The patient has been asymptomatic. Please note that the patient is on Flomax w hich can be a contributing factor to orthostatic hypotension. Will monitor closely. If the patient s hould become symptomatic, would consider discontinuing. 3. History of hypertension. Continue to monitor blood pressure regimen closely with episodes of ort hostatic hypotension. Parameters have been placed. 4. Diabetes. Continue current insulin regimen. 5. Chronic kidney disease stage 3. Continue to monitor. 6. Benign prostatic hypertrophy. Continue Flomax. 7. Dyslipidemia. Continue statin therapy. 8. Hypothyroidism. Continue Synthroid. 9. Constipation. Continue current bowel regimen. 10. GI and deep venous thrombosis prophylaxis. Dictated By: TESSA SHRESTHA DO NR/NTS Conf#: [id number] DID#: [id number] CC: MARIANA IRVING MD; VISHNU LANDERS DO;*EndCC*
[2018-06-10] MEDS: BACLOFEN 10 MG TAB PO SCH ×3 (09:15→20:10)
[2018-06-10] MEDS: GABAPENTIN 100 MG CAP PO SCH ×2 (09:16→20:10)
[2018-06-10] MEDS: GUAIFENESIN LA 600 MG TABSR PO SCH ×2 (09:16→20:10)
[2018-06-10] MEDS: LOSARTAN 50 MG TAB PO SCH (09:16)
[2018-06-10] MEDS: FOLIC ACID 1 MG TAB PO SCH (09:16)
[2018-06-10] MEDS: DOCUSATE SODIUM 100 MG CAP PO SCH ×2 (09:16→20:10)
[2018-06-10] MEDS: POLYETHYLENE GLYCOL 17 GM PACKET PO SCH ×2 (09:17→20:17)
--- NOTE | 2018-06-10 12:52 | PN ---
Date/Time of Note Date/Time of Note DATE: 06/10/18 TIME: 12:52 Subjective No Bm for few days Objective Vital Signs Date Temp Pulse Resp B/P (MAP) Pulse Ox O2 O2 Flow FiO2 Time Delivery Rate 06/10/18 97.9 67 18 122/73 95 Room Air 07:00 (89) 06/08/18 2.0 20:10 Intake and Output 06/09/18 06/09/18 06/10/18 1515:00 23:00 07:00 IntakeIntake Total 1700 ml 200 ml OutputOutput Total 1200 ml 400 ml BalanceBalance 500 ml -200 ml Exam abd-soft cga ambulation Results/Medications Result Diagram: 06/08/18 0627 06/08/18 0625 Results 24 hrs Laboratory Tests Test 06/09/18 17:40 06/09/18 21:40 06/10/18 07:47 06/10/18 12:12 Bedside Glucose 94 103 111 111 Medications Current Medications Tramadol HCl (Ultram) 50 mg Q4 PRN PO PAIN Last administered on 06/02/18at 22:13; Admin Dose 50 MG; Start 05/28/18 at 21:00 Tamsulosin HCl (Flomax) 0.4 mg HS PO Last administered on 06/09/18at 21:33; Admin Dose 0.4 MG; Start 05/28/18 at 21:00 Polyethylene Glycol (Miralax) 17 gm BID PO Last administered on 06/10/18at 09:17; Admin Dose 17 GM; Start 05/28/18 at 21:00 Insulin Aspart (Novolog Insulin Pen) NOVOLOG *MILD* ALGORITHM WITH MEALS BEDTIME SC Last administered on 06/06/18at 12:22; Admin Dose 1 UNIT; Start 05/28/18 at 22:00 Docusate Sodium (Colace) 100 mg BID PRN PO CONSTIPATION; Start 05/28/18 at 21:00 Guaifenesin (Mucinex) 600 mg BID PO Last administered on 06/10/18at 09:16; Admin Dose 600 MG; Start 05/28/18 at 21:00 Miscellaneous Information 1 ea NOTE XX ; Start 05/28/18 at 21:00 Glucose (Glutose) 15 gm Q15M PRN PO DECREASED GLUCOSE; Start 05/28/18 at 21:00 Glucose (Glutose) 22.5 gm Q15M PRN PO DECREASED GLUCOSE; Start 05/28/18 at 21:00 Dextrose (D50w Syringe) 25 ml Q15M PRN IV DECREASED GLUCOSE; Start 05/28/18 at 21:00 Dextrose (D50w Syringe) 50 ml Q15M PRN IV DECREASED GLUCOSE; Start 05/28/18 at 21:00 Glucagon (Glucagen) 1 mg Q15M PRN IM DECREASED GLUCOSE; Start 05/28/18 at 21:00 Glucose (Glutose) 15 gm Q15M PRN BUCCAL DECREASED GLUCOSE; Start 05/28/18 at 21:00 Albuterol/ Ipratropium (Duoneb) 3 ml Q6H RESP THERAPY PRN HHN SHORTNESS OF BREATH Last administered on 06/06/18 10:44; Admin Dose 3 ML; Start 05/28/18 at 21:00 Ondansetron HCl (Zofran Tab) 4 mg Q4 PRN PO NAUSEA AND/OR VOMITING Last administered on 05/31/18 09:30; Admin Dose 4 MG; Start 05/28/18 at 21:00 Atorvastatin Calcium (Lipitor) 10 mg HS PO Last administered on 06/09/18 21:31; Admin Dose 10 MG; Start 05/28/18 at 21:00 Cyclobenzaprine HCl (Flexeril) 5 mg TID PRN PO MUSCLE SPASMS Last administered on 05/31/18 13:03; Admin Dose 5 MG; Start 05/28/18 at 21:00 Folic Acid (Folic Acid) 1 mg DAILY PO Last administered on 06/10/18 09:16; Admin Dose 1 MG; Start 05/29/18 at 09:00 Levothyroxine Sodium (Synthroid) 125 mcg DAILY@06 PO Last administered on 05:59; Admin Dose 125 MCG; Start 05/29/18 at 06:00 Losartan Potassium (Cozaar) 50 mg DAILY PO Last administered on 06/10/18 09:16; Admin Dose 50 MG; Start 05/29/18 at 09:00 Magnesium Oxide (Mag-Ox 400) 400 mg HS PO Last administered on 06/09/18 21:31; Admin Dose 400 MG; Start 05/28/18 at 21:00 Metformin HCl (Glucophage) 1,000 mg BID WITH MEALS PO Last administered on 06/10/18 08:03; Admin Dose 1,000 MG; Start 05/29/18 at 07:35 Diagnostic Test (Pha) (Accu-Chek) 1 ea AC MEALS AND BEDTIME XX Last administered on 06/10/18 08:00; Admin Dose 1 EA; Start 05/28/18 at 21:00 Miscellaneous Information (Pending Santyl Order For Wound Care) This patient pena... PRN PRN XX WOUND CARE; Start 05/28/18 at 22:00 Cyanocobalamin (Vitamin B12 Inj) 1,000 mcg Q30D IM ; Start 06/14/18 at 22:30 Lansoprazole (Prevacid) 30 mg DAILY@06 PO Last administered on 06/10/18 05:59; Admin Dose 30 MG; Start 05/29/18 at 06:00 Docusate Sodium (Colace) 100 mg BID PO Last administered on 06/10/18 09:16; Admin Dose 100 MG; Start 05/29/18 at 09:00 Senna (Senokot) 1 tab HS PO Last administered on 06/09/18 21:32; Admin Dose 1 TAB; Start 05/29/18 at 21:00 Lactulose (Enulose) 20 gm DAILY PRN PO CONSTIPATION Last administered on 06/02/18 18:04; Admin Dose 20 GM; Start 05/28/18 at 22:30 Bisacodyl (Dulcolax Supp) 10 mg DAILY PRN [place] CONSTIPATION; Start 05/28/18 at 22:30 Acetaminophen (Tylenol Tab) 650 mg Q4H PRN PO MILD PAIN 1-3 Last administered on 06/09/18 21:31; Admin Dose 650 MG; Start 05/28/18 at 22:30 Gabapentin (Neurontin) 100 mg BID PO Last administered on 06/10/18 09:16; Admin Dose 100 MG; Start 05/29/18 at 21:00 Acetaminophen/ Hydrocodone Bitart ([place] (10/325)) 1 tab Q4H PRN PO MODERATE PAIN LEVEL 4-6 Last administered on 06/02/18 08:54; Admin Dose 1 TAB; Start 05/31/18 at 13:30 Baclofen (Lioresal) 10 mg TID PO Last administered on 06/10/18 09:15; Admin Dose 10 MG; Start 05/31/18 at 21:00 Sodium Chloride (Deep Sea) 2 spray QID PRN NASAL STUFFYNESS Last administered on 06/08/18at 08:17; Admin Dose 2 SPRAY; Start 06/02/18 at 23:00 Assessment/Plan Additional Assessment/Plan rehab- 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 Good progress, continue program Acute pain syndrome-under better control Diabetes mellitus type 2. Hypertension. Renal insufficiency. Hypothyroidism. Benign prostatic hypertrophy. History of right knee osteoarthritis with arthroscopy. History of right thumb transfer from big toe. MARIANA IRVING MD Jun 10, 2018 12:52
[2018-06-10 14:00] VITALS: BP 123/79; PULSE 66; RESP 18
[2018-06-10 16:15] VITALS: BP 117/79; PULSE 70; RESP 18
[2018-06-10 19:37] VITALS: BP 125/67; PULSE 68; RESP 18
[2018-06-10] MEDS: CYCLOBENZAPRINE 10 MG TAB PO PRN (20:10)
[2018-06-10] MEDS: MAGNESIUM OXIDE 400 MG TAB PO SCH (20:10)
[2018-06-10] MEDS: SENNA TAB PO SCH (20:10)
[2018-06-10] MEDS: ATORVASTATIN 10 MG TAB PO SCH (20:10)
[2018-06-10] MEDS: TAMSULOSIN (SR) 0.4 MG CAP PO SCH (20:10)
[2018-06-10] MEDS: ACETAMINOPHEN 325 MG TAB PO PRN (20:11)
[2018-06-11 02:11] VITALS: BP_SYST 117; BP_SYST 135; BP_DIAS 72; PULSE 75; RESP 18
[2018-06-11] MEDS: LEVOTHYROXINE 125 MCG TAB PO SCH (06:28)
[2018-06-11] MEDS: LANSOPRAZOLE 30 MG CAP PO SCH (06:28)
[2018-06-11] MEDS: ACCU-CHEK XX SCH ×4 (07:05→20:22)
[2018-06-11 07:30] VITALS: BP 98/61; PULSE 63; RESP 18
[2018-06-11] MEDS: INSULIN ASPART [NOVOLOG] 3 ML PEN SC SCH ×4 (07:35→20:22)
[2018-06-11] MEDS: metFORMIN 500 MG TAB PO SCH ×2 (08:16→17:05)
[2018-06-11] MEDS: GUAIFENESIN LA 600 MG TABSR PO SCH ×2 (08:17→20:21)
[2018-06-11] MEDS: FOLIC ACID 1 MG TAB PO SCH (08:17)
[2018-06-11] MEDS: BACLOFEN 10 MG TAB PO SCH ×3 (08:17→20:21)
[2018-06-11] MEDS: POLYETHYLENE GLYCOL 17 GM PACKET PO SCH ×2 (08:18→20:22)
[2018-06-11] MEDS: GABAPENTIN 100 MG CAP PO SCH ×2 (08:18→20:21)
[2018-06-11] MEDS: DOCUSATE SODIUM 100 MG CAP PO SCH ×2 (08:33→20:21)
--- NOTE | 2018-06-11 08:53 | PN ---
DATE: 06/11/2018 SUBJECTIVE: The patient is stable. No events overnight. OBJECTIVE: VITAL SIGNS: Blood pressure is 135/72, pulse 76, respirations 18, temperature 98.0. HEENT: Head is normocephalic. NECK: Shows a brace. HEART: Regular rate. LUNGS: Show diminished breath sounds at the base. ABDOMEN: Soft, nontender to palpation without rebound or guarding. EXTREMITIES: Negative for clubbing, cyanosis, no edema. DERMATOLOGIC: No rashes. MUSCULOSKELETAL: No joint effusion. NEUROLOGIC: No change in vision. MEDICATIONS: Reviewed. LABORATORY DATA: Reviewed. ASSESSMENT AND PLAN: 1. Status post posterior cervical C3-C6 laminectomy with instrumented fusion. The patient is curren tly in neck brace. Continue physical therapy and occupational therapy. 2. Orthostatic hypotension, etiology may be secondary to Flomax, spinal dysfunction. The patient's blood pressures are improving. Continue to monitor. 3. Hypertension. Continue current blood pressure regimen. 4. Diabetes. Continue current insulin regimen. 5. Chronic kidney disease stage III. Continue current treatment plan. 6. Benign prostatic hypertrophy. Continue Flomax. Monitor blood pressures closely. 7. Dyslipidemia. Continue statin therapy. 8. Constipation. Continue current bowel regimen. 9. Gastrointestinal and deep vein thrombosis prophylaxis. Dictated By: TESSA SHRESTHA DO NR/NTS Conf#: [id number] DID#: [id number] CC: VISHNU LANDERS DO; MARIANA IRVING MD;*EndCC*
[2018-06-11] MEDS: LOSARTAN 50 MG TAB PO SCH (09:00)
--- NOTE | 2018-06-11 11:53 | PN ---
Date/Time of Note Date/Time of Note DATE: 06/11/18 TIME: 11:52 Subjective Up with therapy Objective Vital Signs Date Temp Pulse Resp B/P (MAP) Pulse Ox O2 O2 Flow FiO2 Time Delivery Rate 06/11/18 98.4 63 18 98/61 (73) 95 Room Air 07:30 06/08/18 2.0 20:10 Intake and Output 06/10/18 06/10/18 06/11/18 1515:00 23:00 07:00 IntakeIntake Total 1200 ml 1050 ml OutputOutput Total 800 ml 900 ml BalanceBalance 400 ml 150 ml Exam results with bowel program min/cga ambulation Results/Medications Result Diagram: 06/08/18 0627 06/08/18 0625 Results 24 hrs Laboratory Tests Test 06/10/18 12:12 06/10/18 17:29 06/10/18 20:07 06/11/18 08:15 Bedside Glucose 111 102 92 109 Medications Current Medications Tramadol HCl (Ultram) 50 mg Q4 PRN PO PAIN Last administered on 06/02/18 22:13; Admin Dose 50 MG; Start 05/28/18 at 21:00 Tamsulosin HCl (Flomax) 0.4 mg HS PO Last administered on 06/10/18at 20:10; Admin Dose 0.4 MG; Start 05/28/18 at 21:00 Polyethylene Glycol (Miralax) 17 gm BID PO Last administered on 06/11/18 08:18; Admin Dose 17 GM; Start 05/28/18 at 21:00 Insulin Aspart (Novolog Insulin Pen) NOVOLOG *MILD* ALGORITHM WITH MEALS BEDTIME SC Last administered on 06/06/18at 12:22; Admin Dose 1 UNIT; Start 05/28/18 at 22:00 Docusate Sodium (Colace) 100 mg BID PRN PO CONSTIPATION; Start 05/28/18 at 21:00 Guaifenesin (Mucinex) 600 mg BID PO Last administered on 06/11/18 08:17; Admin Dose 600 MG; Start 05/28/18 at 21:00 Miscellaneous Information 1 ea NOTE XX ; Start 05/28/18 at 21:00 Glucose (Glutose) 15 gm Q15M PRN PO DECREASED GLUCOSE; Start 05/28/18 at 21:00 Glucose (Glutose) 22.5 gm Q15M PRN PO DECREASED GLUCOSE; Start 05/28/18 at 21:00 Dextrose (D50w Syringe) 25 ml Q15M PRN IV DECREASED GLUCOSE; Start 05/28/18 at 2 1:00 Dextrose (D50w Syringe) 50 ml Q15M PRN IV DECREASED GLUCOSE; Start 05/28/18 at 21:00 Glucagon (Glucagen) 1 mg Q15M PRN IM DECREASED GLUCOSE; Start 05/28/18 at 21:00 Glucose (Glutose) 15 gm Q15M PRN BUCCAL DECREASED GLUCOSE; Start 05/28/18 at 21:00 Albuterol/ Ipratropium (Duoneb) 3 ml Q6H RESP THERAPY PRN HHN SHORTNESS OF BREATH Last administered on 06/06/18 10:44; Admin Dose 3 ML; Start 05/28/18 at 21:00 Ondansetron HCl (Zofran Tab) 4 mg Q4 PRN PO NAUSEA AND/OR VOMITING Last administered on 05/31/18 09:30; Admin Dose 4 MG; Start 05/28/18 at 21:00 Atorvastatin Calcium (Lipitor) 10 mg HS PO Last administered on 06/10/18 20:10; Admin Dose 10 MG; Start 05/28/18 at 21:00 Cyclobenzaprine HCl (Flexeril) 5 mg TID PRN PO MUSCLE SPASMS Last administered on 06/10/18 20:10; Admin Dose 5 MG; Start 05/28/18 at 21:00 Folic Acid (Folic Acid) 1 mg DAILY PO Last administered on 06/11/18 08:17; Admin Dose 1 MG; Start 05/29/18 at 09:00 Levothyroxine Sodium (Synthroid) 125 mcg DAILY@06 PO Last administered on 06/11/18 06:28; Admin Dose 125 MCG; Start 05/29/18 at 06:00 Losartan Potassium (Cozaar) 50 mg DAILY PO Last administered on 06/10/18 09:16; Admin Dose 50 MG; Start 05/29/18 at 09:00 Magnesium Oxide (Mag-Ox 400) 400 mg HS PO Last administered on 06/10/18 20:10; Admin Dose 400 MG; Start 05/28/18 at 21:00 Metformin HCl (Glucophage) 1,000 mg BID WITH MEALS PO Last administered on 08:16; Admin Dose 1,000 MG; Start 05/29/18 at 07:35 Diagnostic Test (Pha) (Accu-Chek) 1 ea AC MEALS AND BEDTIME XX Last administered on 06/11/18 07:05; Admin Dose 1 EA; Start 05/28/18 at 21:00 Miscellaneous Information (Pending Santyl Order For Wound Care) This patient pena... PRN PRN XX WOUND CARE; Start 05/28/18 at 22:00 Cyanocobalamin (Vitamin B12 Inj) 1,000 mcg Q30D IM ; Start 06/14/18 at 22:30 Lansoprazole (Prevacid) 30 mg DAILY@06 PO Last administered on 06/11/18 06:28; Admin Dose 30 MG; Start 05/29/18 at 06:00 Docusate Sodium (Colace) 100 mg BID PO Last administered on 06/11/18 08:33; Admin Dose 100 MG; Start 05/29/18 at 09:00 Senna (Senokot) 1 tab HS PO Last administered on 06/10/18 20:10; Admin Dose 1 TAB; Start 05/29/18 at 21:00 Lactulose (Enulose) 20 gm DAILY PRN PO CONSTIPATION Last administered on 06/02/18 18:04; Admin Dose 20 GM; Start 05/28/18 at 22:30 Bisacodyl (Dulcolax Supp) 10 mg DAILY PRN [place] CONSTIPATION Last administered on 06/10/18 14:56; Admin Dose 10 MG; Start 05/28/18 at 22:30 Acetaminophen (Tylenol Tab) 650 mg Q4H PRN PO MILD PAIN 1-3 Last administered on 06/10/18 20:11; Admin Dose 650 MG; Start 05/28/18 at 22:30 Gabapentin (Neurontin) 100 mg BID PO Last administered on 06/11/18 08:18; Admin Dose 100 MG; Start 05/29/18 at 21:00 Acetaminophen/ Hydrocodone Bitart ([place] (10/325)) 1 tab Q4H PRN PO MODERATE PAIN LEVEL 4-6 Last administered on 06/02/18 08:54; Admin Dose 1 TAB; Start 05/31/18 at 13:30 Baclofen (Lioresal) 10 mg TID PO Last administered on 06/11/18at 08:17; Admin Dose 10 MG; Start 05/31/18 at 21:00 Sodium Chloride (Deep Sea) 2 spray QID PRN NASAL STUFFYNESS Last administered on 06/08/18at 08:17; Admin Dose 2 SPRAY; Start 06/02/18 at 23:00 Assessment/Plan Additional Assessment/Plan rehab- Nontraumatic cervical spinal cord injury with cervical spinal stenosis and spondylitis, status post posterior C3 through C6 laminectomy and fusion. Good gains, continue treatment plan Acute pain syndrome-under better control Diabetes mellitus type 2. Hypertension. Renal insufficiency. Hypothyroidism. Benign prostatic hypertrophy. History of right knee osteoarthritis with arthroscopy. History of right thumb transfer from big toe. MARIANA IRVING MD Jun 11, 2018 11:53
[2018-06-11 14:00] VITALS: BP 109/66; PULSE 72; RESP 18
[2018-06-11 15:28] VITALS: BP 124/72; PULSE 75; RESP 18
[2018-06-11] MEDS: ACETAMINOPHEN 325 MG TAB PO PRN ×2 (16:59→20:21)
[2018-06-11 19:33] VITALS: BP 118/68; PULSE 72; RESP 18
[2018-06-11] MEDS: MAGNESIUM OXIDE 400 MG TAB PO SCH (20:21)
[2018-06-11] MEDS: TAMSULOSIN (SR) 0.4 MG CAP PO SCH (20:21)
[2018-06-11] MEDS: ATORVASTATIN 10 MG TAB PO SCH (20:21)
[2018-06-11] MEDS: SENNA TAB PO SCH (20:21)
[2018-06-11] MEDS: LACTULOSE 30ML CUP PO PRN (21:38)
[2018-06-12 02:00] VITALS: BP 122/70; PULSE 68; RESP 18
[2018-06-12] MEDS: LANSOPRAZOLE 30 MG CAP PO SCH (06:20)
[2018-06-12] MEDS: LEVOTHYROXINE 125 MCG TAB PO SCH (06:20)
[2018-06-12 07:30] VITALS: BP 119/73; PULSE 70; RESP 18
[2018-06-12] MEDS: INSULIN ASPART [NOVOLOG] 3 ML PEN SC SCH ×4 (07:35→21:00)
[2018-06-12] MEDS: ACCU-CHEK XX SCH ×4 (08:04→21:39)
[2018-06-12] MEDS: metFORMIN 500 MG TAB PO SCH ×2 (08:44→17:05)
[2018-06-12] MEDS: GUAIFENESIN LA 600 MG TABSR PO SCH ×2 (08:59→20:43)
[2018-06-12] MEDS: FOLIC ACID 1 MG TAB PO SCH (08:59)
[2018-06-12] MEDS: DOCUSATE SODIUM 100 MG CAP PO SCH ×2 (08:59→20:43)
[2018-06-12] MEDS: GABAPENTIN 100 MG CAP PO SCH ×2 (09:00→20:43)
[2018-06-12] MEDS: POLYETHYLENE GLYCOL 17 GM PACKET PO SCH ×2 (09:00→20:42)
[2018-06-12] MEDS: BACLOFEN 10 MG TAB PO SCH ×3 (09:00→20:43)
[2018-06-12] MEDS: LOSARTAN 50 MG TAB PO SCH (09:00)
--- NOTE | 2018-06-12 09:40 | PN ---
DATE: 06/12/2018 SUBJECTIVE: The patient is stable, no events overnight. The patient is complaining of mild neck brianda n after having a shower yesterday. The patient denies any tingling or numbness down his fingers or a blayne. OBJECTIVE: VITAL SIGNS: Blood pressure is 122/70, respirations 18, pulse 68, temperature 98.5. HEENT: Head is normocephalic. NECK: Shows a brace. HEART: Regular rate. LUNGS: Show diminished breath sounds at the base. ABDOMEN: Soft, nontender to palpation without rebound or guarding. EXTREMITIES: Negative for clubbing, cyanosis, no edema. DERMATOLOGIC: No rashes. MUSCULOSKELETAL: No joint effusion. NEUROLOGIC: No change in exam. FUNCTIONAL EXAM: Functional exam has been reviewed and assessed. MEDICATIONS: Reviewed. LABORATORY DATA: Reviewed. ASSESSMENT AND PLAN: 1. Status post posterior cervical C3-C6 laminectomy with instrumented fusion. The patient is curren tly in neck brace, complains about mild neck pain. Continue pain medication and monitor closely. Co ntinue physical therapy and occupational therapy. 2. Orthostatic hypotension, possibly due to Flomax, resolved. 3. Hypertension. Continue current blood pressure regimen. 4. Diabetes. Continue current insulin regimen. 5. Chronic kidney disease, stage III. Continue to monitor. 6. Benign prostatic hypertrophy. Continue Flomax. 7. Dyslipidemia. Continue statin therapy. 8. Constipation. Continue current bowel regimen. 9. Gastrointestinal and deep vein thrombosis prophylaxis. Dictated By: TESSA SHRESTHA DO NR/NTS Conf#: [id number] DID#: [id number] CC: MARIANA IRVING MD; VISHNU LANDERS DO;*EndCC*
[2018-06-12 14:00] VITALS: BP 123/71; PULSE 85; RESP 18
[2018-06-12 19:44] VITALS: BP 121/73; PULSE 77; RESP 18
[2018-06-12] MEDS: MAGNESIUM OXIDE 400 MG TAB PO SCH (20:43)
[2018-06-12] MEDS: ATORVASTATIN 10 MG TAB PO SCH (20:43)
[2018-06-12] MEDS: SENNA TAB PO SCH (20:43)
[2018-06-12] MEDS: TAMSULOSIN (SR) 0.4 MG CAP PO SCH (20:43)
[2018-06-13 02:26] VITALS: BP 117/66; PULSE 76; RESP 18
[2018-06-13] MEDS: LANSOPRAZOLE 30 MG CAP PO SCH (06:43)
[2018-06-13] MEDS: LEVOTHYROXINE 125 MCG TAB PO SCH (06:43)
[2018-06-13 07:00] VITALS: BP 133/76; PULSE 75; RESP 18
[2018-06-13] MEDS: ACCU-CHEK XX SCH ×4 (07:05→21:00)
[2018-06-13] MEDS: INSULIN ASPART [NOVOLOG] 3 ML PEN SC SCH ×4 (07:35→21:00)
[2018-06-13] MEDS: metFORMIN 500 MG TAB PO SCH ×2 (08:09→17:46)
[2018-06-13] MEDS: LOSARTAN 50 MG TAB PO SCH ×2 (09:00→09:10)
[2018-06-13] MEDS: GABAPENTIN 100 MG CAP PO SCH ×2 (09:10→21:09)
[2018-06-13] MEDS: GUAIFENESIN LA 600 MG TABSR PO SCH ×2 (09:10→21:09)
[2018-06-13] MEDS: BACLOFEN 10 MG TAB PO SCH ×3 (09:10→21:09)
[2018-06-13] MEDS: DOCUSATE SODIUM 100 MG CAP PO SCH ×2 (09:10→21:09)
[2018-06-13] MEDS: FOLIC ACID 1 MG TAB PO SCH (09:11)
[2018-06-13] MEDS: POLYETHYLENE GLYCOL 17 GM PACKET PO SCH ×2 (09:11→21:00)
--- NOTE | 2018-06-13 10:56 | PN ---
DATE: 06/13/2018 Followup progress note and cover for acute rehabilitation SUBJECTIVE: The patient is stable. No events overnight. The patient has mild neck pain, stable, no change. Denies any tingling or numbness. OBJECTIVE: VITAL SIGNS: Blood pressure is 125/76, respirations 16, pulse 62, temperature 98.5. HEENT: Head is normocephalic. NECK: Shows a brace. HEART: Regular rate. LUNGS: Show diminished breath sounds at the base. ABDOMEN: Soft, nontender to palpation. No rebound or guarding. EXTREMITIES: Negative for clubbing, cyanosis, no edema. DERMATOLOGIC: No rashes. MUSCULOSKELETAL: No joint effusions. NEUROLOGIC: No change in exam. FUNCTIONAL EXAM: Has been reviewed and assessed. MEDICATIONS: The patient's medications have been reviewed. LABORATORY DATA: The laboratory data has been reviewed. ASSESSMENT AND PLAN: 1. Status post posterior cervical C3-C6 laminectomy with instrumental fusion. The patient is curren tly in a neck brace, mild neck pain is noted. Continue current pain regimen. Continue orthopedic physical therapist apy and occupational therapy. 2. Hypertension. Continue current blood pressure regimen. 3. Diabetes. Continue current insulin regimen. 4. Chronic kidney disease stage 3. Continue to monitor. 5. Benign prostatic hypertrophy. Continue Flomax. 6. Dyslipidemia. Continue statin therapy. 7. Constipation. Continue current bowel regimen. 8. Gastrointestinal and deep vein thrombosis prophylaxis. Dictated By: TESSA SHRESTHA DO NR/NTS Conf#: [id number] DID#: [id number] CC: VISHNU LANDERS DO; MARIANA IRVING MD;*End*
[2018-06-13 14:00] VITALS: BP 123/79; PULSE 87; RESP 16
[2018-06-13 20:00] VITALS: BP 147/71; PULSE 80; RESP 18
[2018-06-13] MEDS: TAMSULOSIN (SR) 0.4 MG CAP PO SCH (21:09)
[2018-06-13] MEDS: ATORVASTATIN 10 MG TAB PO SCH (21:09)
[2018-06-13] MEDS: MAGNESIUM OXIDE 400 MG TAB PO SCH (21:09)
[2018-06-13] MEDS: SENNA TAB PO SCH (21:09)
[2018-06-14 02:00] VITALS: BP 121/64; PULSE 72; RESP 18
[2018-06-14] MEDS: LEVOTHYROXINE 125 MCG TAB PO SCH (06:29)
[2018-06-14] MEDS: traMADol 50 MG TAB PO PRN (06:29)
[2018-06-14] MEDS: LANSOPRAZOLE 30 MG CAP PO SCH (06:29)
[2018-06-14 07:30] VITALS: BP 110/71; PULSE 71; RESP 18
[2018-06-14] MEDS: INSULIN ASPART [NOVOLOG] 3 ML PEN SC SCH ×4 (07:35→21:00)
[2018-06-14] MEDS: metFORMIN 500 MG TAB PO SCH ×2 (08:03→18:03)
[2018-06-14] MEDS: ACCU-CHEK XX SCH ×4 (08:04→21:00)
[2018-06-14] MEDS: GABAPENTIN 100 MG CAP PO SCH ×2 (09:07→22:35)
[2018-06-14] MEDS: FOLIC ACID 1 MG TAB PO SCH (09:07)
[2018-06-14] MEDS: GUAIFENESIN LA 600 MG TABSR PO SCH ×2 (09:08→22:35)
[2018-06-14] MEDS: DOCUSATE SODIUM 100 MG CAP PO SCH ×2 (09:08→22:35)
[2018-06-14] MEDS: POLYETHYLENE GLYCOL 17 GM PACKET PO SCH ×2 (09:09→22:34)
--- NOTE | 2018-06-14 09:16 | PN ---
DATE: 06/14/2018 SUBJECTIVE: The patient is complaining of neck pain without significant improvement. No other event s noted. No hemoptysis, hematemesis, hematochezia. OBJECTIVE: VITAL SIGNS: Blood pressure is 121/64, respiration 18, pulse 72, temperature 98.0. HEENT: Head is normocephalic. NECK: Supple. HEART: Regular rate. LUNGS: Show diminished sounds at base. ABDOMEN: Soft, nontender to palpation. No rebound or guarding. DERMATOLOGIC: No rashes. MUSCULOSKELETAL: No joint effusion. NEUROLOGIC: No change in exam. MEDICATIONS: Reviewed. LABORATORY DATA: Reviewed. ASSESSMENT AND PLAN: Status post posterior cervical C3-C6 laminectomy with instrumented fusion. The patient continues to have underlying neck pain. Will discuss with Dr. Palomino if reimaging sh ould occur. The patient does have mild paresthesia down his arm, which has been constant and without significant change. Will continue occupational therapy, continue physical therapy. 1. Hypertension. Blood pressure controlled. 2. Diabetes. Continue current insulin regimen. 3. Chronic kidney disease stage III, continue to monitor. 4. Benign prostatic hypertrophy. Continue Flomax. 5. Dyslipidemia. Continue statin therapy. 6. Constipation. Continue current bowel regimen. 7. Gastrointestinal and deep venous thrombosis prophylaxis. Dictated By: TESSA SHRESTHA DO NR/NTS Conf#: [id number] DID#: [id number] CC: MARIANA IRVING MD;*EndCC*
[2018-06-14] MEDS: BACLOFEN 10 MG TAB PO SCH ×3 (10:09→22:34)
[2018-06-14] MEDS: LOSARTAN 50 MG TAB PO SCH (10:09)
--- NOTE | 2018-06-14 13:30 | PN ---
Date/Time of Note Date/Time of Note DATE: 06/14/18 TIME: 13:30 Objective Vital Signs Date Temp Pulse Resp B/P (MAP) Pulse Ox O2 O2 Flow FiO2 Time Delivery Rate 06/14/18 98.3 71 18 110/71 94 Room Air 07:30 (84) Intake and Output 06/13/18 06/13/18 06/14/18 1414:59 22:59 06:59 IntakeIntake Total 1200 ml OutputOutput Total 600 ml BalanceBalance 600 ml Exam INTERDISCIPLINARY TEAM CONFERENCE Patient reports Right sided flank/ chest pain with deep breath since last night. Improved this morning Physical Exam: Pulm- cta Abd- soft BOWEL- Cont BLADDER-Cont SKIN- intact OT- DRESSING-min/mod BATHING-min/mod TOILETING-min/mod PT- BED MOBILITY- sba TRANSFERS-sba AMBULATION- sba 300 feet A/P- Interdisciplinary team conference held today. Please see interdisciplinary sheet. Working toward d.c. on 06/17 with post discharge follow up of physical t herapy, occupational therapy. case d/w Dr. otto. Will order CXR and venous doppler of bilateral LE. Results/Medications Result Diagram: 06/13/18 0804 06/13/18 0804 Results 24 hrs Laboratory Tests Test 06/13/18 17:43 06/13/18 21:12 06/14/18 08:02 06/14/18 12:07 Bedside Glucose 108 119 115 154 Test 06/14/18 12:09 Bedside Glucose 148 Medications Current Medications Tramadol HCl (Ultram) 50 mg Q4 PRN PO PAIN Last administered on 06/14/18at 06:29; Admin Dose 50 MG; Start 05/28/18 at 21:00 Tamsulosin HCl (Flomax) 0.4 mg HS PO Last administered on 06/13/18at 21:09; Admin Dose 0.4 MG; Start 05/28/18 at 21:00 Polyethylene Glycol (Miralax) 17 gm BID PO Last administered on 06/14/18at 09:09; Admin Dose 17 GM; Start 05/28/18 at 21:00 Insulin Aspart (Novolog Insulin Pen) NOVOLOG *MILD* ALGORITHM WITH MEALS BEDTIME SC Last administered on 06/06/18at 12:22; Admin Dose 1 UNIT; Start 05/28/18 at 22:00 Docusate Sodium (Colace) 100 mg BID PRN PO CONSTIPATION; Start 05/28/18 at 21:00 Guaifenesin (Mucinex) 600 mg BID PO Last administered on 06/14/18 09:08; Admin Dose 600 MG; Start 05/28/18 at 21:00 Miscellaneous Information 1 ea NOTE XX ; Start 05/28/18 at 21:00 Glucose (Glutose) 15 gm Q15M PRN PO DECREASED GLUCOSE; Start 05/28/18 at 21:00 Glucose (Glutose) 22.5 gm Q15M PRN PO DECREASED GLUCOSE; Start 05/28/18 at 21:00 Dextrose (D50w Syringe) 25 ml Q15M PRN IV DECREASED GLUCOSE; Start 05/28/18 at 21:00 Dextrose (D50w Syringe) 50 ml Q15M PRN IV DECREASED GLUCOSE; Start 05/28/18 at 21:00 Glucagon (Glucagen) 1 mg Q15M PRN IM DECREASED GLUCOSE; Start 05/28/18 at 21:00 Glucose (Glutose) 15 gm Q15M PRN BUCCAL DECREASED GLUCOSE; Start 05/28/18 at 21:00 Albuterol/ Ipratropium (Duoneb) 3 ml Q6H RESP THERAPY PRN HHN SHORTNESS OF BREATH Last administered on 06/06/18 10:44; Admin Dose 3 ML; Start 05/28/18 at 21:00 Ondansetron HCl (Zofran Tab) 4 mg Q4 PRN PO NAUSEA AND/OR VOMITING Last administered on 05/31/18 09:30; Admin Dose 4 MG; Start 05/28/18 at 21:00 Atorvastatin Calcium (Lipitor) 10 mg HS PO Last administered on 06/13/18 21:09; Admin Dose 10 MG; Start 05/28/18 at 21:00 Cyclobenzaprine HCl (Flexeril) 5 mg TID PRN PO MUSCLE SPASMS Last administered on 06/10/18 20:10; Admin Dose 5 MG; Start 05/28/18 at 21:00 Folic Acid (Folic Acid) 1 mg DAILY PO Last administered on 06/14/18 09:07; Admin Dose 1 MG; Start 05/29/18 at 09:00 Levothyroxine Sodium (Synthroid) 125 mcg DAILY@06 PO Last administered on 06/14/18 06:29; Admin Dose 125 MCG; Start 05/29/18 at 06:00 Losartan Potassium (Cozaar) 50 mg DAILY PO Last administered on 06/14/18 10:09; Admin Dose 50 MG; Start 05/29/18 at 09:00 Magnesium Oxide (Mag-Ox 400) 400 mg HS PO Last administered on 06/13/18 21:09; Admin Dose 400 MG; Start 05/28/18 at 21:00 Metformin HCl (Glucophage) 1,000 mg BID WITH MEALS PO Last administered on 06/14/18 08:03; Admin Dose 1,000 MG; Start 05/29/18 at 07:35 Diagnostic Test (Pha) (Accu-Chek) 1 ea AC MEALS AND BEDTIME XX Last administered on 06/14/18 12:11; Admin Dose 1 EA; Start 05/28/18 at 21:00 [facility] This patient pena... PRN PRN XX WOUND CARE; Start 05/28/18 at 22:00 Cyanocobalamin (Vitamin B12 Inj) 1,000 mcg Q30D IM ; Start 06/14/18 at 22:30 Lansoprazole (Prevacid) 30 mg DAILY@06 PO Last administered on 06/14/18 06:29; Admin Dose 30 MG; Start 05/29/18 at 06:00 Docusate Sodium (Colace) 100 mg BID PO Last administered on 06/14/18 09:08; Admin Dose 100 MG; Start 05/29/18 at 09:00 Senna (Senokot) 1 tab HS PO Last administered on 06/13/18 21:09; Admin Dose 1 TAB; Start 05/29/18 at 21:00 Lactulose (Enulose) 20 gm DAILY PRN PO CONSTIPATION Last administered on 06/11/18 21:38; Admin Dose 20 GM; Start 05/28/18 at 22:30 Bisacodyl (Dulcolax Supp) 10 mg DAILY PRN [place] CONSTIPATION Last administered on 06/10/18 14:56; Admin Dose 10 MG; Start 05/28/18 at 22:30 Acetaminophen (Tylenol Tab) 650 mg Q4H PRN PO MILD PAIN 1-3 Last administered on 06/11/18 20:21; Admin Dose 650 MG; Start 05/28/18 at 22:30 Gabapentin (Neurontin) 100 mg BID PO Last administered on 06/14/18 09:07; Admin Dose 100 MG; Start 05/29/18 at 21:00 Acetaminophen/ Hydrocodone Bitart ([place] (10/325)) 1 tab Q4H PRN PO MODERATE PAIN LEVEL 4-6 Last administered on 06/02/18 08:54; Admin Dose 1 TAB; Start 05/31/18 at 13:30 Baclofen (Lioresal) 10 mg TID PO Last administered on 06/14/18 10:09; Admin Dose 10 MG; Start 05/31/18 at 21:00 Sodium Chloride (Deep Sea) 2 spray QID PRN NASAL STUFFYNESS Last administered on 06/08/18 08:17; Admin Dose 2 SPRAY; Start 06/02/18 at 23:00 Enoxaparin Sodium (Lovenox) 30 mg DAILY SC ; Start 06/14/18 at 13:30; Status MARIANA PARKER MD Jun 14, 2018 13:30
[2018-06-14 14:00] VITALS: BP 126/67; PULSE 82; RESP 18
[2018-06-14] MEDS: ENOXAPARIN 30 MG/0.3 ML SYG SC SCH (18:06)
[2018-06-14 20:00] VITALS: BP 111/58; PULSE 86; RESP 18
[2018-06-14] MEDS ORDERED: CYANOCOBALAMIN 1000 MCG INJ IM SCH (22:30)
[2018-06-14] MEDS: HYDROCORTISONE 0.5% 28.35 GM CR TOP SCH (22:33)
[2018-06-14] MEDS: TAMSULOSIN (SR) 0.4 MG CAP PO SCH (22:34)
[2018-06-14] MEDS: SENNA TAB PO SCH (22:34)
[2018-06-14] MEDS: ATORVASTATIN 10 MG TAB PO SCH (22:35)
[2018-06-14] MEDS: MAGNESIUM OXIDE 400 MG TAB PO SCH (22:35)
[2018-06-15 02:00] VITALS: BP 122/60; PULSE 78; RESP 18
[2018-06-15] MEDS: LEVOTHYROXINE 125 MCG TAB PO SCH (06:35)
[2018-06-15] MEDS: LANSOPRAZOLE 30 MG CAP PO SCH (06:35)
[2018-06-15 07:00] VITALS: BP 126/72; PULSE 78; RESP 18
[2018-06-15] MEDS: INSULIN ASPART [NOVOLOG] 3 ML PEN SC SCH ×4 (07:35→21:00)
[2018-06-15] MEDS: traMADol 50 MG TAB PO PRN ×2 (07:44→12:08)
[2018-06-15] MEDS: ACCU-CHEK XX SCH ×4 (08:12→21:00)
[2018-06-15] MEDS: metFORMIN 500 MG TAB PO SCH ×2 (08:13→18:00)
[2018-06-15] MEDS: HYDROCODONE/APAP (10/325) TAB PO PRN ×2 (08:13→13:28)
[2018-06-15] MEDS: HYDROCORTISONE 0.5% 28.35 GM CR TOP SCH ×2 (09:00→21:37)
[2018-06-15] MEDS: GUAIFENESIN LA 600 MG TABSR PO SCH ×2 (09:00→21:36)
[2018-06-15] MEDS: POLYETHYLENE GLYCOL 17 GM PACKET PO SCH ×2 (09:21→21:37)
[2018-06-15] MEDS: GABAPENTIN 100 MG CAP PO SCH ×2 (09:21→21:36)
[2018-06-15] MEDS: DOCUSATE SODIUM 100 MG CAP PO SCH ×2 (09:21→21:36)
[2018-06-15] MEDS: BACLOFEN 10 MG TAB PO SCH ×3 (09:22→21:36)
[2018-06-15] MEDS: LOSARTAN 50 MG TAB PO SCH (09:22)
[2018-06-15] MEDS: FOLIC ACID 1 MG TAB PO SCH (09:22)
[2018-06-15] MEDS: ENOXAPARIN 30 MG/0.3 ML SYG SC SCH (09:29)
[2018-06-15] MEDS ORDERED: COLCHICINE 0.6 MG TAB PO ONE (10:00)
--- NOTE | 2018-06-15 10:46 | PN ---
DATE: 06/15/2018 SUBJECTIVE: The patient is clinically improving, continues to have neck pain. He denies any pain on deep inspiration. The patient is also complaining about lower toe pain. The patient does admit to have a history of gout. OBJECTIVE: VITAL SIGNS: Blood pressure is 126/72, respirations 18, pulse 78, temperature 98.1. HEENT: Head is normocephalic. NECK: Shows trach and neck collar. HEART: Regular rate. LUNGS: Show diminished breath sounds at the base. ABDOMEN: Soft, nontender to palpation without rebound or guarding. EXTREMITIES: Negative for clubbing, cyanosis, no edema. DERMATOLOGIC: No rashes. MUSCULOSKELETAL: The patient has noted pain in his lower extremity. NEUROLOGIC: No focal deficits. MEDICATIONS: Reviewed. LABORATORY DATA: Reviewed. IMAGING: Chest x-ray and showed no infiltrate. A Doppler ultrasound was negative for any DVT. ASSESSMENT AND PLAN: 1. Cervical C3-C6 laminectomy with instrumented fusion. The patient continues to have underlying ne ck pain. Continue physical therapy, continue pain control. The patient's x-ray was negative. 2. Right flank or shoulder pain. Improved. The patient's chest x-ray is negative for any infiltrat es. The patient's Doppler ultrasound negative for DVT. The patient has no pleurisy at this time. 3. Possible gouty flare. We will start the patient on colchicine. 4. Diabetes. Continue current insulin regimen. 5. Chronic kidney disease stage III. Continue to monitor. Continue medical management. 6. Benign prostatic hypertrophy. Continue Flomax. 7. Dyslipidemia. Continue statin therapy. 8. Constipation. 9. Gastrointestinal and deep vein thrombosis prophylaxis. 10. Diabetes. Continue current insulin regimen. Dictated By: TESSA SHRESTHA DO NR/NTS Conf#: [id number] DID#: [id number] CC: MARIANA IRVING MD; VISHNU LANDERS DO;*EndCC*
--- NOTE | 2018-06-15 12:46 | PN ---
Date/Time of Note Date/Time of Note DATE: 06/15/18 TIME: 12:44 Subjective Feeling a little better today Objective Vital Signs Date Temp Pulse Resp B/P (MAP) Pulse Ox O2 O2 Flow FiO2 Time Delivery Rate 06/15/18 98.1 78 18 126/72 93 Room Air 07:00 (90) Intake and Output 06/14/18 06/14/18 06/15/18 1515:00 23:00 07:00 IntakeIntake Total 860 ml OutputOutput Total 650 ml 520 ml 600 ml BalanceBalance -650 ml 340 ml -600 ml Exam CXR- (-) LE doppler (-) sba ambulation pulm-cta Results/Medications Result Diagram: 06/13/18 0804 06/13/18 0804 Results 24 hrs Laboratory Tests Test 06/14/18 18:01 06/14/18 22:32 06/15/18 08:11 06/15/18 12:07 Bedside Glucose 131 136 117 131 Medications Current Medications Tramadol HCl (Ultram) 50 mg Q4 PRN PO PAIN Last administered on 06/15/18at 12:08; Admin Dose 50 MG; Start 05/28/18 at 21:00 Tamsulosin HCl (Flomax) 0.4 mg HS PO Last administered on 06/14/18at 22:34; Admin Dose 0.4 MG; Start 05/28/18 at 21:00 Polyethylene Glycol (Miralax) 17 gm BID PO Last administered on 06/15/18at 09:21; Admin Dose 17 GM; Start 05/28/18 at 21:00 Insulin Aspart (Novolog Insulin Pen) NOVOLOG *MILD* ALGORITHM WITH MEALS BEDTIME SC Last administered on 06/06/18at 12:22; Admin Dose 1 UNIT; Start 05/28/18 at 22:00 Docusate Sodium (Colace) 100 mg BID PRN PO CONSTIPATION; Start 05/28/18 at 21:00 Guaifenesin (Mucinex) 600 mg BID PO Last administered on 06/14/18at 22:35; Admin Dose 600 MG; Start 05/28/18 at 21:00 Miscellaneous Information 1 ea NOTE XX ; Start 05/28/18 at 21:00 Glucose (Glutose) 15 gm Q15M PRN PO DECREASED GLUCOSE; Start 05/28/18 at 21:00 Glucose (Glutose) 22.5 gm Q15M PRN PO DECREASED GLUCOSE; Start 05/28/18 at 21:00 Dextrose (D50w Syringe) 25 ml Q15M PRN IV DECREASED GLUCOSE; Start 05/28/18 at 21:00 Dextrose (D50w Syringe) 50 ml Q15M PRN IV DECREASED GLUCOSE; Start 05/28/18 at 21:00 Glucagon (Glucagen) 1 mg Q15M PRN IM DECREASED GLUCOSE; Start 05/28/18 at 21:00 Glucose (Glutose) 15 gm Q15M PRN BUCCAL DECREASED GLUCOSE; Start 05/28/18 at 21:00 Albuterol/ Ipratropium (Duoneb) 3 ml Q6H RESP THERAPY PRN HHN SHORTNESS OF BREATH Last administered on 06/06/18 10:44; Admin Dose 3 ML; Start 05/28/18 at 21:00 Ondansetron HCl (Zofran Tab) 4 mg Q4 PRN PO NAUSEA AND/OR VOMITING Last administered on 05/31/18 09:30; Admin Dose 4 MG; Start 05/28/18 at 21:00 Atorvastatin Calcium (Lipitor) 10 mg HS PO Last administered on 06/14/18 22:35; Admin Dose 10 MG; Start 05/28/18 at 21:00; Status Hold Cyclobenzaprine HCl (Flexeril) 5 mg TID PRN PO MUSCLE SPASMS Last administered on 06/10/18 20:10; Admin Dose 5 MG; Start 05/28/18 at 21:00 Folic Acid (Folic Acid) 1 mg DAILY PO Last administered on 06/15/18 09:22; Admin Dose 1 MG; Start 05/29/18 at 09:00 Levothyroxine Sodium (Synthroid) 125 mcg DAILY@06 PO Last administered on 06/15/18 06:35; Admin Dose 125 MCG; Start 05/29/18 at 06:00 Losartan Potassium (Cozaar) 50 mg DAILY PO Last administered on 06/15/18 09:22; Admin Dose 50 MG; Start 05/29/18 at 09:00 Magnesium Oxide (Mag-Ox 400) 400 mg HS PO Last administered on 06/14/18 22:35; Admin Dose 400 MG; Start 05/28/18 at 21:00 Metformin HCl (Glucophage) 1,000 mg BID WITH MEALS PO Last administered on 06/15/18 08:13; Admin Dose 1,000 MG; Start 05/29/18 at 07:35 Diagnostic Test (Pha) (Accu-Chek) 1 ea AC MEALS AND BEDTIME XX Last administered on 06/15/18 12:15; Admin Dose 1 EA; Start 05/28/18 at 21:00 [facility]iscellaneous Information [facility] This patient pena... PRN PRN XX WOUND CARE; Start 05/28/18 at 22:00 Cyanocobalamin (Vitamin B12 Inj) 1,000 mcg Q30D IM ; Start 06/14/18 at 22:30 Lansoprazole (Prevacid) 30 mg DAILY@06 PO Last administered on 06/15/18 06:35; Admin Dose 30 MG; Start 05/29/18 at 06:00 Docusate Sodium (Colace) 100 mg BID PO Last administered on 06/15/18 09:21; Admin Dose 100 MG; Start 05/29/18 at 09:00 Senna (Senokot) 1 tab HS PO Last administered on 06/14/18 22:34; Admin Dose 1 TAB; Start 05/29/18 at 21:00 Lactulose (Enulose) 20 gm DAILY PRN PO CONSTIPATION Last administered on 06/11/18 21:38; Admin Dose 20 GM; Start 05/28/18 at 22:30 Bisacodyl (Dulcolax Supp) 10 mg DAILY PRN [place] CONSTIPATION Last administered on 06/10/18 14:56; Admin Dose 10 MG; Start 05/28/18 at 22:30 Acetaminophen (Tylenol Tab) 650 mg Q4H PRN PO MILD PAIN 1-3 Last administered on 06/11/18 20:21; Admin Dose 650 MG; Start 05/28/18 at 22:30 Gabapentin (Neurontin) 100 mg BID PO Last administered on 06/15/18 09:21; Admin Dose 100 MG; Start 05/29/18 at 21:00 Acetaminophen/ Hydrocodone Bitart ([place] (10/325)) 1 tab Q4H PRN PO MODERATE PAIN LEVEL 4-6 Last administered on 06/15/18 08:13; Admin Dose 1 TAB; Start 05/31/18 at 13:30 Baclofen (Lioresal) 10 mg TID PO Last administered on 06/15/18at 12:08; Admin Dose 10 MG; Start 05/31/18 at 21:00 Sodium Chloride (Deep Sea) 2 spray QID PRN NASAL STUFFYNESS Last administered on 06/08/18at 08:17; Admin Dose 2 SPRAY; Start 06/02/18 at 23:00 Enoxaparin Sodium (Lovenox) 30 mg DAILY SC Last administered on 06/15/18at 09:29; Admin Dose 30 MG; Start 06/14/18 at 13:30 Hydrocortisone (Hydrocortisone 0.5% Cr) 1 applic BID TOP Last administered on 06/14/18at 22:33; Admin Dose 1 APPLIC; Start 06/14/18 at 21:00 Assessment/Plan Additional Assessment/Plan rehab- Nontraumatic cervical spinal cord injury with cervical spinal stenosis and spondylitis, status post posterior C3 through C6 laminectomy and fusion. Continue activities as tolerated Acute pain syndrome- started on colchicine for gout Pulm- CRX negative. LE doppler negative Diabetes mellitus type 2. Hypertension. Renal insufficiency. Hypothyroidism. Benign prostatic hypertrophy. History of right knee osteoarthritis with arthroscopy. History of right thumb transfer from big toe. MARIANA IRVING MD Jun 15, 2018 12:46
[2018-06-15] MEDS: SENNA TAB PO SCH (21:36)
[2018-06-15] MEDS: MAGNESIUM OXIDE 400 MG TAB PO SCH (21:36)
[2018-06-15] MEDS: TAMSULOSIN (SR) 0.4 MG CAP PO SCH (21:36)
[2018-06-15] MEDS: ACETAMINOPHEN 325 MG TAB PO PRN (21:37)
[2018-06-16] MEDS: LANSOPRAZOLE 30 MG CAP PO SCH (06:43)
[2018-06-16] MEDS: LEVOTHYROXINE 125 MCG TAB PO SCH (06:43)
[2018-06-16] MEDS: ACCU-CHEK XX SCH ×4 (07:05→20:49)
[2018-06-16] MEDS: INSULIN ASPART [NOVOLOG] 3 ML PEN SC SCH ×4 (07:35→20:49)
[2018-06-16 07:48] VITALS: BP 106/66; PULSE 73; RESP 18
[2018-06-16] MEDS: metFORMIN 500 MG TAB PO SCH ×2 (08:01→17:39)
[2018-06-16] MEDS: GABAPENTIN 100 MG CAP PO SCH ×2 (08:09→20:52)
[2018-06-16] MEDS: FOLIC ACID 1 MG TAB PO SCH (08:09)
[2018-06-16] MEDS: DOCUSATE SODIUM 100 MG CAP PO SCH ×2 (08:09→20:52)
[2018-06-16] MEDS: GUAIFENESIN LA 600 MG TABSR PO SCH ×2 (08:09→20:52)
[2018-06-16] MEDS: POLYETHYLENE GLYCOL 17 GM PACKET PO SCH ×2 (08:09→20:54)
[2018-06-16] MEDS: ENOXAPARIN 30 MG/0.3 ML SYG SC SCH (08:10)
[2018-06-16] MEDS: HYDROCORTISONE 0.5% 28.35 GM CR TOP SCH ×2 (08:10→20:54)
[2018-06-16] MEDS: BACLOFEN 10 MG TAB PO SCH ×3 (08:10→20:52)
[2018-06-16] MEDS: LOSARTAN 50 MG TAB PO SCH (08:17)
[2018-06-16] MEDS ORDERED: COLCHICINE 0.6 MG TAB PO ONE (09:30)
[2018-06-16] MEDS: HYDROCODONE/APAP (10/325) TAB PO PRN (09:46)
--- NOTE | 2018-06-16 10:43 | PN ---
DATE: 06/16/2018 SUBJECTIVE: The patient is stable, no events overnight. The patient's left toe pain, gouty flares a re improving. OBJECTIVE: VITAL SIGNS: Blood pressure is 106/66, pulse 73, respirations 18, temperature 98.3. HEENT: Head is normocephalic. NECK: Supple. Positive brace. HEART: Regular rate. LUNGS: Show diminished breath sounds at the base. ABDOMEN: Soft, nontender to palpation. No rebound or guarding. EXTREMITIES: Negative for clubbing, cyanosis, no edema. DERMATOLOGIC: No rashes. MUSCULOSKELETAL: No joint effusion. The patient has less tenderness in left toe. NEUROLOGIC: No change in exam. MEDICATIONS: Reviewed. LABORATORY DATA: Shows white count 8.3, hemoglobin 12.3, platelet count 267. The patient's sodium i s 138, BUN 24, creatinine 1.26. ASSESSMENT AND PLAN: 1. Cervical C3-C6 laminectomy with instrumented fusion. The patient is clinically improving. [facility] physical therapy. Continue pain control. 2. Right flank shoulder pain, improved. 3. Gouty flare. We will continue colchicine. The patient is clinically improving. 4. Diabetes. Continue current insulin regimen. 5. Chronic kidney disease, stage III. Renal function is stable, continue to monitor. 6. Benign prostatic hypertrophy. Continue Flomax. 7. Dyslipidemia. Continue statin therapy. 8. Constipation, improved. 9. Gastrointestinal and deep vein thrombosis prophylaxis. 10. Diabetes. Continue current insulin regimen. Dictated By: TESSA SHRESTHA DO NR/NTS Conf#: [id number] DID#: [id number] CC: MARIANA IRVING MD; VISHNU LANDERS DO;*EndCC*
--- NOTE | 2018-06-16 13:56 | PN ---
Date/Time of Note Date/Time of Note DATE: 06/16/18 TIME: 13:55 Subjective Therapy reports family training going well Objective Vital Signs Date Temp Pulse Resp B/P (MAP) Pulse Ox O2 O2 Flow FiO2 Time Delivery Rate 06/16/18 98.3 73 18 106/66 99 Room Air 07:48 (79) Intake and Output 06/15/18 06/15/18 06/16/18 1515:00 23:00 07:00 IntakeIntake Total 800 ml 200 ml OutputOutput Total 300 ml 250 ml BalanceBalance 500 ml 200 ml -250 ml Exam sba ambulation gouty pain improved Results/Medications Result Diagram: 06/16/18 0656 06/16/18 0656 Results 24 hrs Laboratory Tests Test 06/15/18 17:58 06/15/18 21:32 06/16/18 06:56 06/16/18 07:51 Bedside Glucose 137 138 118 White Blood Count 8.3 # Red Blood Count 3.82 L Hemoglobin 12.3 L Hematocrit 37.4 L Mean Corpuscular 97.9 Volume Mean Corpuscular 32.2 Hemoglobin Mean Corpuscular 32.9 Hemoglobin Concent Red Cell 13.9 Distribution Width Platelet Count 267 # Mean Platelet Volume 9.7 Immature 1.200 H Granulocytes % Neutrophils % 62.4 Lymphocytes % 19.7 Monocytes % 13.5 H Eosinophils % 2.7 Basophils % 0.5 Nucleated Red Blood 0.0 Cells % Immature 0.100 H Granulocytes # Neutrophils # 5.2 Lymphocytes # 1.6 Monocytes # 1.1 H Eosinophils # 0.2 Basophils # 0.0 Nucleated Red Blood 0.0 Cells # Sodium Level 138 Potassium Level 4.1 Chloride Level 98 Carbon Dioxide Level 29 Anion Gap 11 Blood Urea Nitrogen 24 H Creatinine 1.26 H Est Glomerular Filtrat Rate mL/min Glucose Level 115 Calcium Level 9.0 Phosphorus Level 4.2 Magnesium Level 2.0 Test 06/16/18 11:46 Bedside Glucose 114 Medications Current Medications Tramadol HCl (Ultram) 50 mg Q4 PRN PO PAIN Last administered on 06/15/18at 12:08; Admin Dose 50 MG; Start 05/28/18 at 21:00 Tamsulosin HCl (Flomax) 0.4 mg HS PO Last administered on 06/15/18at 21:36; Admin Dose 0.4 MG; Start 05/28/18 at 21:00 Polyethylene Glycol (Miralax) 17 gm BID PO Last administered on 06/16/18at 0 8:09; Admin Dose 17 GM; Start 05/28/18 at 21:00 Insulin Aspart (Novolog Insulin Pen) NOVOLOG *MILD* ALGORITHM WITH MEALS BEDTIME SC Last administered on 06/06/18at 12:22; Admin Dose 1 UNIT; Start 05/28 at 22:00 Docusate Sodium (Colace) 100 mg BID PRN PO CONSTIPATION; Start 05/28/18 at 21:00 Guaifenesin (Mucinex) 600 mg BID PO Last administered on 06/16/18at 08:09; Admin Dose 600 MG; Start 05/28/18 at 21:00 Miscellaneous Information 1 ea NOTE XX ; Start 05/28/18 at 21:00 Glucose (Glutose) 15 gm Q15M PRN PO DECREASED GLUCOSE; Start 05/28/18 at 21:00 Glucose (Glutose) 22.5 gm Q15M PRN PO DECREASED GLUCOSE; Start 05/28/18 at 21:00 Dextrose (D50w Syringe) 25 ml Q15M PRN IV DECREASED GLUCOSE; Start 05/28/18 at 21:00 Dextrose (D50w Syringe) 50 ml Q15M PRN IV DECREASED GLUCOSE; Start 05/28/18 at 2 1:00 Glucagon (Glucagen) 1 mg Q15M PRN IM DECREASED GLUCOSE; Start 05/28/18 at 21:00 Glucose (Glutose) 15 gm Q15M PRN BUCCAL DECREASED GLUCOSE; Start 05/28/18 at 21:00 Albuterol/ Ipratropium (Duoneb) 3 ml Q6H RESP THERAPY PRN HHN SHORTNESS OF BREATH Last administered on 06/06/18at 10:44; Admin Dose 3 ML; Start 05/28/18 at 21:00 Ondansetron HCl (Zofran Tab) 4 mg Q4 PRN PO NAUSEA AND/OR VOMITING Last administered on 05/31/18at 09:30; Admin Dose 4 MG; Start 05/28/18 at 21:00 Atorvastatin Calcium (Lipitor) 10 mg HS PO Last administered on 06/14/18at 22:35; Admin Dose 10 MG; Start 05/28/18 at 21:00; Status Hold Cyclobenzaprine HCl (Flexeril) 5 mg TID PRN PO MUSCLE SPASMS Last administered on 06/10/18 20:10; Admin Dose 5 MG; Start 05/28/18 at 21:00 Folic Acid (Folic Acid) 1 mg DAILY PO Last administered on 06/16/18 08:09; Admin Dose 1 MG; Start 05/29/18 at 09:00 Levothyroxine Sodium (Synthroid) 125 mcg DAILY@06 PO Last administered on 06/16/18 06:43; Admin Dose 125 MCG; Start 05/29/18 at 06:00 Losartan Potassium (Cozaar) 50 mg DAILY PO Last administered on 06/15/18 09:22; Admin Dose 50 MG; Start 05/29/18 at 09:00 Magnesium Oxide (Mag-Ox 400) 400 mg HS PO Last administered on 06/15/18 21:36; Admin Dose 400 MG; Start 05/28/18 at 21:00 Metformin HCl (Glucophage) 1,000 mg BID WITH MEALS PO Last administered on 06/16/18 08:01; Admin Dose 1,000 MG; Start 05/29/18 at 07:35 Diagnostic Test (Pha) (Accu-Chek) 1 ea AC MEALS AND BEDTIME XX Last administered on 06/15/18 21:00; Admin Dose 1 EA; Start 05/28/18 at 21:00 Miscellaneous Information (Pending [facility] Order For Wound Care) This patient pena... PRN PRN XX WOUND CARE; Start 05/28/18 at 22:00 Cyanocobalamin (Vitamin B12 Inj) 1,000 mcg Q30D IM ; Start 06/14/18 at 22:30 Lansoprazole (Prevacid) 30 mg DAILY@06 PO Last administered on 06/16/18 06:43; Admin Dose 30 MG; Start 05/29/18 at 06:00 Docusate Sodium (Colace) 100 mg BID PO Last administered on 06/16/18 08:09; Admin Dose 100 MG; Start 05/29/18 at 09:00 Senna (Senokot) 1 tab HS PO Last administered on 06/15/18 21:36; Admin Dose 1 TAB; Start 05/29/18 at 21:00 Lactulose (Enulose) 20 gm DAILY PRN PO CONSTIPATION Last administered on 06/11/18 21:38; Admin Dose 20 GM; Start 05/28/18 at 22:30 Bisacodyl (Dulcolax Supp) 10 mg DAILY PRN [place] CONSTIPATION Last administered on 06/10/18 14:56; Admin Dose 10 MG; Start 05/28/18 at 22:30 Acetaminophen (Tylenol Tab) 650 mg Q4H PRN PO MILD PAIN 1-3 Last administered on 06/15/18 21:37; Admin Dose 650 MG; Start 05/28/18 at 22:30 Gabapentin (Neurontin) 100 mg BID PO Last administered on 06/16/18 08:09; Admin Dose 100 MG; Start 05/29/18 at 21:00 Acetaminophen/ Hydrocodone Bitart (Sycamore (10/325)) 1 tab Q4H PRN PO MODERATE PAIN LEVEL 4-6 Last administered on 06/16/18 09:46; Admin Dose 1 TAB; Start 05/31/18 at 13:30 Baclofen (Lioresal) 10 mg TID PO Last administered on 06/16/18 13:40; Admin Dose 10 MG; Start 05/31/18 at 21:00 Sodium Chloride (Deep Sea) 2 spray QID PRN NASAL STUFFYNESS Last administered on 06/08/18 08:17; Admin Dose 2 SPRAY; Start 06/02/18 at 23:00 Enoxaparin Sodium (Lovenox) 30 mg DAILY SC Last administered on 06/16/18 08:10; Admin Dose 30 MG; Start 06/14/18 at 13:30 Hydrocortisone (Hydrocortisone 0.5% Cr) 1 applic BID TOP Last administered on 06/16/18 08:10; Admin Dose 1 APPLIC; Start 06/14/18 at 21:00 Assessment/Plan Additional Assessment/Plan Rehab- 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 Working towards dc tomorrow Acute pain syndrome- continue current meds Diabetes mellitus type 2. Hypertension. Renal insufficiency. Hypothyroidism. Benign prostatic hypertrophy. History of right knee osteoarthritis with arthroscopy. History of right thumb transfer from big toe. MARIANA IRVING MD Jun 16, 2018 13:56
[2018-06-16 14:00] VITALS: BP 126/74; PULSE 73; RESP 18
[2018-06-16 20:00] VITALS: BP 131/75; PULSE 76; RESP 18
[2018-06-16] MEDS: TAMSULOSIN (SR) 0.4 MG CAP PO SCH (20:52)
[2018-06-16] MEDS: SENNA TAB PO SCH (20:53)
[2018-06-16] MEDS: MAGNESIUM OXIDE 400 MG TAB PO SCH (20:53)
[2018-06-16] MEDS: ACETAMINOPHEN 325 MG TAB PO PRN (20:55)
[2018-06-17 02:00] VITALS: BP 128/71; PULSE 74; RESP 16
--- NOTE | 2018-06-17 06:32 | PN ---
DATE: 06/16/2018 PSYCHOLOGY -- INDIVIDUAL SESSION -- [id number] This is a followup on a patient that was seen last week. The patient reports that he had a setback because he got an attack of gout. The patient was frustrated by this, but he said he is now taking medication and feels better and is able to now walk again. The patient had just finished walking with the physical therapist and is motivated to continue to work on himself and do as well as he can. I worked with the patient to help continue to support him trying as hard as he can to work on his physical health as well as his emotional health. Dictated By: DE KEARNS PHD XANDER/NAOMI Conf#: [id number] DID#: [id number] CC: MARIANA IRVING MD;*EndCC* MTDD
[2018-06-17] MEDS: LEVOTHYROXINE 125 MCG TAB PO SCH (06:39)
[2018-06-17] MEDS: LANSOPRAZOLE 30 MG CAP PO SCH (06:39)
[2018-06-17] MEDS: INSULIN ASPART [NOVOLOG] 3 ML PEN SC SCH ×2 (07:35→12:00)
[2018-06-17] MEDS: ACCU-CHEK XX SCH ×2 (07:41→12:00)
[2018-06-17] MEDS: POLYETHYLENE GLYCOL 17 GM PACKET PO SCH (08:01)
[2018-06-17] MEDS: DOCUSATE SODIUM 100 MG CAP PO SCH (08:02)
[2018-06-17] MEDS: GABAPENTIN 100 MG CAP PO SCH (08:02)
[2018-06-17] MEDS: FOLIC ACID 1 MG TAB PO SCH (08:02)
[2018-06-17] MEDS: BACLOFEN 10 MG TAB PO SCH (08:02)
[2018-06-17] MEDS: metFORMIN 500 MG TAB PO SCH (08:02)
[2018-06-17] MEDS: HYDROCODONE/APAP (10/325) TAB PO PRN ×2 (08:06→12:18)
[2018-06-17] MEDS: ENOXAPARIN 30 MG/0.3 ML SYG SC SCH (08:07)
[2018-06-17] MEDS: GUAIFENESIN LA 600 MG TABSR PO SCH (08:08)
[2018-06-17] MEDS: LOSARTAN 50 MG TAB PO SCH (08:08)
[2018-06-17 08:12] VITALS: BP 112/70; PULSE 85; RESP 18
[2018-06-17] MEDS: HYDROCORTISONE 0.5% 28.35 GM CR TOP SCH (09:00)
--- NOTE | 2018-06-17 11:02 | PN ---
DATE: 06/17/2018 SUBJECTIVE: The patient is stable. The patient continues to have mild pain in his left toe, althoug h improving. No other events noted. No hemoptysis, hematemesis or hematochezia. OBJECTIVE: VITAL SIGNS: Blood pressure is 112/70, respirations 18, pulse 85, temperature 98.2. HEENT: Head is normocephalic. NECK: Supple. HEART: Regular rate. LUNGS: Shows diminished breath sounds at the base. ABDOMEN: Soft, nontender to palpation. No rebound or guarding. EXTREMITIES: Negative for clubbing, cyanosis, no edema. DERMATOLOGIC: No rashes. MUSCULOSKELETAL: No joint effusion. NEUROLOGIC: No change in exam. MEDICATIONS: The patient's medications have been reviewed. LABORATORY DATA: Reviewed. ASSESSMENT AND PLAN: 1. Cervical C3-C6 laminectomy with instrumented fusion. The patient is clinically improving. [facility] nue physical therapy, continue pain control. 2. Gouty flare. The patient is receiving colchicine, tolerating well. Continue pain control. We w ill defer NSAID in the setting of chronic kidney disease. 3. Diabetes. Continue current insulin regimen. 4. Chronic kidney disease, stage III. Renal function is stable, continue to monitor. 5. Benign prostatic hypertrophy. Continue Flomax. 6. Dyslipidemia. Continue statin therapy. 7. Constipation, improved. 8. Gastrointestinal and deep vein thrombosis prophylaxis. 9. Diabetes. Continue current insulin regimen. Dictated By: TESSA SHRESTHA DO NR/NTS Conf#: [id number] DID#: [id number] CC: VISHNU LANDERS DO; MARIANA IRVING MD;*EndCC*
--- NOTE | 2018-06-17 15:33 | DS ---
Date/Time of Note Date/Time of Note DATE: 06/17/18 TIME: 13:59 Discharge Summary Admission/Discharge Info Admit Date/Time May 28, 2018 at 19:40 Discharge Date/Time Jun 17, 2018 at 12:30 Discharge Diagnosis 1. 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 2. Diabetes mellitus type 2. 3. Hypertension. 4. Renal insufficiency. 5. Hypothyroidism. 6. Benign prostatic hypertrophy. 7. History of right knee osteoarthritis with arthroscopy. 8. History of right thumb transfer from big toe. 9. Gout 9. Improvements in self-care and mobility. Patient Condition: Good Hospital Course The patient was admitted for comprehensive interdisciplinary rehabilitation and made steady functional gains from a Max level to a SBA level for self care tasks and mobility including ambulating over 150 feet with the use of a FWW. Patient did have an episode of gout durign his stay, which improved. Patient's family member received caregiver training. Patient is being discharged home with the recommendation of home health PT, OT and RN follow up. The DC meds are per the medication reconciliation sheet. The discharge equipment recommendations include: FWW, BSC, shower chair. The patient will follow up with PMD and surgeon upon DC. Primary Care Provider Not On Staff Doctor Pending Labs Laboratory Tests Test 06/16/18 17:23 06/16/18 20:34 06/17/18 07:34 06/17/18 11:57 Bedside 113 125 107 119 Glucose mg/dL (70-220) mg/dL (70-220) mg/dL (70-220) mg/dL (70-220) MARIANA IRVING MD Jun 17, 2018 15:33
== END 2018-06-17 12:30 | disposition home health service (06) | DRG 949 ==
LOC: VRC 19:40
PROVIDERS: ADMIT Physical Medicine & Rehabilitation; ATTEND Internal Medicine Nephrology
DX: S14.103D Unspecified injury at C3 level of cervical spinal cord, subsequent encounter (principal); E87.0 Hyperosmolality and hypernatremia; R65.10 Systemic inflammatory response syndrome (SIRS) of non-infectious origin without acute organ dysfunction; J98.11 Atelectasis; G89.18 Other acute postprocedural pain; M54.2 Cervicalgia; G62.9 Polyneuropathy, unspecified; E11.22 Type 2 diabetes mellitus with diabetic chronic kidney disease; I12.9 Hypertensive chronic kidney disease with stage 1 through stage 4 chronic kidney disease, or unspecified chronic kidney disease; N18.3 Chronic kidney disease, stage 3 (moderate); N40.0 Benign prostatic hyperplasia without lower urinary tract symptoms; E78.5 Hyperlipidemia, unspecified; E03.9 Hypothyroidism, unspecified; Z74.09 Other reduced mobility; Z98.1 Arthrodesis status; F06.31 Mood disorder due to known physiological condition with depressive features; K59.00 Constipation, unspecified; M10.9 Gout, unspecified; I95.2 Hypotension due to drugs; T44.6X5A Adverse effect of alpha-adrenoreceptor antagonists, initial encounter; Y92.239 Unspecified place in hospital as the place of occurrence of the external cause
CPT/HCPCS: 71045; 72050; 80048; 80053; 81001; 82962; 83036; 83735; 84100; 85025; 87081; 87086; 90686; 93970; 94640; 94664; 97110; 97112; 97116; 97150; 97163; 97530; 97535; J1650; J1815; J3420